=== PATIENT | female | born 1945 | race Caucasian/White ===

== ENCOUNTER 2017-03-04 10:42 | Emergency (ER) | payer MEDICARE, SELFPAY | END 2017-03-04 11:34 | disposition home or self-care (01) | PROVIDERS: Emergency Provider Nurse Practitioner Family; Family Provider Nurse Practitioner Family; Visit Provider Nurse Practitioner Family | DX: H65.02 Acute serous otitis media, left ear (principal) | CPT/HCPCS: 99201 ==

== ENCOUNTER → 2017-05-06 09:12 | Outpatient (POV) | payer MEDICARE, SELFPAY | PROVIDERS: Family Provider Nurse Practitioner Family; Visit Provider Dermatology | DX: Z00.00 Encounter for general adult medical examination without abnormal findings (principal) ==

== ENCOUNTER → 2017-09-07 14:17 | Outpatient (CLI) | payer MEDICARE, SELFPAY | PROVIDERS: Visit Provider Nurse Practitioner Family | DX: E03.9 Hypothyroidism, unspecified (principal) ==

== ENCOUNTER 2017-10-05 06:36 | Inpatient (IN) ==
--- NOTE | 2017-10-05 06:56 | Emergency Department Note ---
ED Disposition Clinical Impression: ST elevation myocardial infarction (STEMI) of inferior wall Disposition: Still a Patient Condition on Discharge: Serious - Critical Care Critical Care Time: Yes Attestation: On , the high probability of a clinically significant, sudden or life threatening deterioration of the following system(s) required my full and direct attention, intervention and personal management. The time I documented below is in addition to time spent performing reported procedures but includes the following listed in this critical care notation. Total Critical Care Time: 15 Vital system(s) involved:: Circulatory Failure (acute NE) My critical care processes included: Assessment & monitoring of V/S, Initial and Re-exams, Data Review/Interpretation, Coordinating Care, Medication Orders and management, Documentation Medical Decision Making - Nabil Inquiry Pt receiving controlled substance: No Vital Signs: 10/05/17 06:44 10/05/17 06:50 10/05/17 07:01 Temperature 98.6 F Temperature Source Oral Pulse Rate 98 H Pulse Rate [Right Brachial] 99 H 97 H Respiratory Rate 16 16 Blood Pressure Blood Pressure [Right Arm] 165/93 179/84 Blood Pressure Mean [Right Arm] 117 115 02 Sat by Pulse Oximetry 96 93 L Oxygen Delivery Method Nasal Cannula Oxygen Flow Rate (LPM) 2 10/05/17 07:11 Temperature 98.6 F Temperature Source Pulse Rate 96 H Pulse Rate [Right Brachial] Respiratory Rate 16 Blood Pressure 178/84 Blood Pressure [Right Arm] Blood Pressure Mean [Right Arm] 02 Sat by Pulse Oximetry Oxygen Delivery Method Nasal Cannula Oxygen Flow Rate (LPM) - Lab Data Lab Results 10/05/17 06:50: WBC 9.4, RBC 5.02, Hgb 15.3, Hct 43.7, MCV 87.0, MCH 30.5, MCHC 35.1, RDW 13.4, Plt Count 339, MPV 6.8 L, Neut % (Auto) 79.5, Lymph % (Auto) 13.7, [place] % (Auto) 4.8, Eos % (Auto) 1.7, Baso % (Auto) 0.3, Neut # (Auto) 7.4 , Lymph # (Auto) 1.3, [place] # (Auto) 0.5, Eos # (Auto) 0.2, Baso # (Auto) 0.0 10/05/17 06:50: Sodium 140, Potassium 2.8 L*, Chloride 103, Carbon Dioxide 30, Anion Gap 9.8, BUN 9, Creatinine 0.82, Estimated Creat Clear 59, Estimated GFR 69, Est GFR ( Amer) 83, Glucose 136 H, Calcium 9.4 Result diagrams: 10/05/17 06:50 10/05/17 06:50 Orders (Tests/Meds): ED MEDICATIONS Discontinued Medications Generic Name Dose Route Start Last Admin Trade Name Freq PRN Reason Stop Dose Admin Heparin Sodium (Porcine) 7,200 unit 10/05/17 06:59 10/05/17 07:01 Heparin 1,000 Units/Ml 10ml Vial (Director Medical Affairs) IV 10/05/17 07:00 7,200 unit ONCE ONE Administration Nitroglycerin 0.4 mg 10/05/17 06:58 10/05/17 07:10 Nitrostat 0.4mg Sl Tablet SL 11/04/17 06:57 1 tab Q5MINP PRN Administration Chest Pain Ticagrelor 180 mg 10/05/17 06:59 10/05/17 07:01 Brilinta 90mg Tablet PO 10/05/17 07:00 180 mg ONCE ONE Administration ORDERS Category Date Time Status Chest XR -- portable [XR chest portable] Stat Exams 10/05/17 06:49 Ordered Basic Metabolic Panel Stat Lab 10/05/17 06:50 Results Troponin I Stat Lab 10/05/17 06:50 Results ECG Request by /Frederick Stat Y 10/05/17 06:49 Ordered - ECG Data Tracing #1 EKG interpreted by Dhiraj Wilkinson MD: Rhythm: sinus Rate: 90 [place]: normal Ectopy: none Conduction: Borderline first-degree AV block ST Segment Changes: Elevation in leads III and aVF, depression in leads I and aVL T Wave Changes: none Q Waves: Inferior, septal Poor R-wave progression consistent with acute inferior myocardial infarction Changes are new compared to only prior EKG here - Physician Consults Physician Consulted: Danyel Time: 07:00 Reason -: Cardiology Eval/Care Comment/Response: 100 U/kg of heparin, 180 mg of Brilinta. He is on his way in. - SARA Score for STEMI Age of patient: 65-74 years Hx of anginal chest pain: Present Hx of hypertension: Present Hx of diabetes: Absent Systolic Blood Pressure: 100 mg Hg or more Heart Rate: Less than 100 beats/min [place] Class: I-No heart failure Weight of patient: 67 kg or more Anterior NE: No Left Bundle Branch Block: Absent Delay to treatment after attack: Less than 4 hrs Stemi Risk Score: 5 Medical Decision Narrative: Code STEMI called upon receipt of EKG. General Adult HPI - General Chief complaint: Chest Pain Stated complaint: Blood Pressure high,fast heart rate Time Seen by Provider: 10/05/17 06:46 Mode of Arrival: Ambulatory Limitations: No Limitations Description of Symptoms (Recalled from ER Triage Doc. by RN): Reports fast heart rate at home since 0300, and reports chest pain with pain in bilateral shoulders. - History of Present Illness HPI narrative: Complains of fast heart rate, high blood pressure, chest pain and bilateral arm pain. States she has been getting it for the past 3 nights. Tonight it came on in the a.m. Associated with some nausea but denies shortness of breath and diaphoresis. Pain is currently 6/10. She says that last night she had about 3 hours of the same symptoms but then went back to sleep and it seemed to have resolved. The night before that she had a less severe, briefer episode that she thinks lasted less than an hour. She does not have a history of coronary artery disease, but has hyperlipidemia, hypertension, and family history of a massive NE in her sister. She is a non-smoker. She is not diabetic. She took 325 mg of aspirin and 1000 mg of Tylenol this morning before coming to the emergency room. - Related Data Home Medications Medication Instructions Recorded Confirmed levothyroxine 75 mcg capsule 75 mcg PO DAILY 09/19/17 10/05/17 Acetaminophen [Tylenol 500mg 1,000 mg PO Q6 PRN 10/05/17 10/05/17 tablet] Aspirin [Aspirin 325mg Tab] 325 mg PO DAILY 10/05/17 10/05/17 Lisinopril/Hydrochlorothiazide 1 tab PO DAILY 10/05/17 10/05/17 [Lisinopril-Hctz 10-12.5 mg Tab] Allergies Allergy/AdvReac Type Severity Reaction Status Date / Time codeine [CODEINE] Allergy Unknown Verified 09/19/17 13:32 No Known Allergies Allergy Unknown Uncoded 02/23/17 14:39 [facility] History I have reviewed the patient's past medical history: Yes Medical History: Reports:: Hypertension Denies:: Cancer, Diabetes Mellitus Type 1, Diabetes Mellitus Type 2, MRSA Other Surgeries: Yes: Hysterectomy-Total Amputation: No Fractures: No Comment: breast biopsies, gallbladder - Social History Smoking Status: Never smoker Alcohol Intake: never Substance Use Type: denies use Occupational Status: retired, other Housing: house Household Members: family - Psychiatric History Expresses thoughts of harming self/others: None Suicide Plan Description: No Plan Family Hx:: Cancer ROS Obtained: Yes All systems reviewed & no additional complaints - Constitutional Constitutional: Denies excessive sweating - Cardiovascular Cardiovascular: Reports chest pain, Reports chest pain at rest - Respiratory Respiratory: No dyspnea - Gastrointestinal Gastrointestingal: Reports: nausea. Denies: vomiting Physical Exam - General General appearance: alert, in no apparent distress - Head Head exam: atraumatic, normocephalic, normal inspection - Eye Eye exam: Present: normal appearance, PERRL, EOMI - ENT ENT exam: Present: mucous membranes moist - Neck Neck exam: Present: normal inspection, full ROM, trachea midline. Absent: meningismus, lymphadenopathy - Chest Chest inspection: Present: normal inspection, symmetric chest wall rise. Absent : tenderness - Respiratory Respiratory exam: Present: normal lung sounds bilaterally. Absent: respiratory distress - Cardiovascular Cardiovascular exam: Present: regular rate, normal rhythm. Absent: JVD - Abdominal Exam Abdominal exam: Present: soft, normal bowel sounds. Absent: distention, tenderness, guarding - Extremities Exam Extremities exam: Present: normal inspection, full ROM, normal capillary refill. Absent: calf tenderness - Neurological Exam Neurological exam: Present: alert, oriented X3 - Psychiatric Psychiatric exam: Present: normal affect, normal mood - Skin Skin exam: Present: warm, dry, intact, normal color
[2017-10-05 06:58] LABS: Basophils % 0.3 % (0.1-2.0); Eosinophils # 0.2 K/mm3 (0.0-0.4); Eosinophils % 1.7 % (0.1-12.0); Hematocrit 43.7 % (37.0-47.0); Hemoglobin 15.3 g/dL (12.2-16.2); Lymphocytes # 1.3 K/mm3 (0.7-4.5); Lymphocytes % 13.7 K/mm3 (10-50); Mean Corpuscular HGB Conc 35.1 g/dL (31.8-35.4); Mean Corpuscular Hemoglobin 30.5 pg (27.0-31.2); Mean Platelet Volume 6.8 fl (7.4-10.4); Monocytes # 0.5 K/mm3 (0.1-1.0); Monocytes % 4.8 % (1.7-9.3); Neutrophils # 7.4 K/mm3 (1.8-7.8); Neutrophils % 79.5 % (37.0-80.0); Platelet Count 339 K/mm3 (142-424); Red Blood Count 5.02 M/mm3 (4.20-5.40); Red Cell Distribution Width 13.4 % (11.5-17.5); White Blood Count 9.4 K/mm3 (4.8-10.8)
[2017-10-05 07:06] LABS: Anion Gap 9.8 mEq/L (5-15); Calcium 9.4 mg/dL (8.5-10.1)
[2017-10-05 07:09] LABS: Potassium 2.8 mmoL/L (3.5-5.1)
--- NOTE | 2017-10-05 10:31 | Consult Report ---
History of Present Illness Consult date: 10/05/17 Consult reason: chest pain Chief complaint: chest pain Additional Medical History:: 1. Family history of myocardial infarction in sister History of present illness: Complains of fast heart rate, high blood pressure, chest pain and bilateral arm pain. States she has been getting it for the past 3 nights. Tonight it came on in the a.m. Associated with some nausea but denies shortness of breath and diaphoresis. Pain is currently 6/10. She says that last night she had about 3 hours of the same symptoms but then went back to sleep and it seemed to have resolved. The night before that she had a less severe, briefer episode that she thinks lasted less than an hour. She does not have a history of coronary artery disease, but has hyperlipidemia, hypertension, and family history of a massive NC in her sister. She is a non-smoker. She is not diabetic. She took 325 mg of aspirin and 1000 mg of Tylenol this morning before coming to the emergency room. The above per Dr. Wilkinson, ER physician I saw the patient post cardiac catheterization and stenting, and she is pain- free at this time. The above information was verified. [facility] History Medical History: Reports:: Hypertension Denies:: Cancer, Diabetes Mellitus Type 1, Diabetes Mellitus Type 2, MRSA Other Surgeries: Yes: Hysterectomy-Total Amputation: No Fractures: No - *Social History Smoking Status: Never smoker Alcohol Intake: never Substance Use Type: denies use Occupational Status: retired, other Housing: house Household Members: family - Psychiatric History Expresses thoughts of harming self/others: None Suicide Plan Description: No Plan *Family Hx:: Cancer Meds Home Medications Medication Instructions Recorded Confirmed Type levothyroxine 75 mcg capsule 75 mcg PO DAILY 09/19/17 10/05/17 History Acetaminophen [Tylenol 500mg 1,000 mg PO Q6 PRN 10/05/17 10/05/17 History tablet] Aspirin [Aspirin 325mg Tab] 325 mg PO DAILY 10/05/17 10/05/17 History Lisinopril/Hydrochlorothiazide 1 tab PO DAILY 10/05/17 10/05/17 History [Lisinopril-Hctz 10-12.5 mg Tab] Allergies Allergy/AdvReac Type Severity Reaction Status Date / Time codeine [CODEINE] Allergy Unknown Unknown Verified 10/05/17 10:11 allergy reaction Review of Systems - *Cardiovascular Reports chest pain, Reports shortness of breath with activity - *Respiratory Reports shortness of breath with activity - *Gastrointestinal Denies abdominal pain Exam Vital signs and Labs for Last 24 Hours: Temp Pulse Resp BP Pulse Ox 98.3 F 81 22 150/79 96 10/05/17 10:13 10/05/17 10:13 10/05/17 10:13 10/05/17 10:13 10/05/17 10:13 Laboratory Results - last 24 hr 10/05/17 06:50: WBC 9.4, RBC 5.02, Hgb 15.3, Hct 43.7, MCV 87.0, MCH 30.5, MCHC 35.1, RDW 13.4, Plt Count 339, MPV 6.8 L, Neut % (Auto) 79.5, Lymph % (Auto) 13.7, [place] % (Auto) 4.8, Eos % (Auto) 1.7, Baso % (Auto) 0.3, Neut # (Auto) 7.4 , Lymph # (Auto) 1.3, [place] # (Auto) 0.5, Eos # (Auto) 0.2, Baso # (Auto) 0.0 10/05/17 06:50: Sodium 140, Potassium 2.8 L*, Chloride 103, Carbon Dioxide 30, Anion Gap 9.8, BUN 9, Creatinine 0.82, Estimated Creat Clear 59, Estimated GFR 69, Est GFR ( Amer) 83, Glucose 136 H, Calcium 9.4, Troponin I 3.14 H I & O for Last 24 hours: Intake & Output 10/02/17 10/03/17 10/04/17 10/05/17 11:59 11:59 11:59 11:59 Weight 170 lb 9 oz - *Routine Neck Exam Absent: JVD, carotid bruit - *Routine Respiratory Exam Present: CTA bilaterally - *Routine Cardiovascular Exam Present: RRR. Absent: murmur, gallop - *Routine Extremities Exam Absent: edema - *Routine Neurological Exam Present: alert, oriented X3, moving all extremities Assessment and Plan (1) ST elevation myocardial infarction (STEMI) of inferior wall Current visit: Yes Status: Acute Category: Medical Code(s): I21.19 - ST elevation (STEMI) myocardial infarction involving other coronary artery of inferior wall (2) Hypertension Current visit: Yes Status: Acute Category: Medical Code(s): I10 - Essential (primary) hypertension (3) Hypokalemia Current visit: Yes Status: Acute Category: Medical Code(s): E87.6 - Hypokalemia - Assessment and plan all Dx Assessment and Plan for all problems:: 1. Will continue aspirin 81 mg daily and Brilinta 90 mg twice daily status post ST elevation NC with right coronary artery stenting for suction of thrombus. 2. Will continue CHANTAL inhibitor and add low-dose beta-ruy therapy due to ST elevation NC. 3. Will obtain echocardiogram to evaluate left ventricular function. 4. Continue potassium replacement will also check magnesium level and replace if less than 2.
--- NOTE | 2017-10-05 11:47 | History & Physical Report ---
*Admission Date: 10/05/17 *Chief complaint: chest pain *History of present illness: 72 year old white female with a history of HTN and hypothyroidism presented to ED early this morning with chest pain that radiated to her shoulders and arms. Patient reports similar symptoms over the last three days. No associated nausea or shortness of breath. She does report shortness of breath with exertion that has increased over the last few weeks. Patient states her b/p was elevated 152/99 at home which prompted her to come to the ED for evaluation. In the ED, EKG showed inferior ST elevation. Trop was elevated at 3.14. She was found to be hypokalemic at 2.8 and replacement was ordered. Cardiology was consulted and she was taken directly to the labor relations supervisor were a thrombectomy was performed to total occlusion of RCA and stent was placed. She has moderate circ disease with 70% stenosis and severe LAD disease with 70-80% stenosis. She was found to have inferior wall hypokinesis with EF 55%. See cath report for complete details. Patient was admitted to step down unit for monitoring and further evaluation. Patient was evaluated post catheterization. She was found to be painfree and without complaints. [facility] History I have reviewed the patient's past medical history: Yes Medical History: Reports:: Hyperlipidemia, Hypertension Denies:: Cancer, Diabetes Mellitus Type 1, Diabetes Mellitus Type 2, MRSA Laterality Cases: Bilateral: Breast Biopsy Other Surgeries: Yes: Cholecystectomy, Hysterectomy-Total Amputation: No Fractures: No - *Social History Educational Level: Attended High School Smoking Status: Never smoker Alcohol Intake: never Substance Use Type: denies use Occupational Status: retired, other Housing: house Household Members: family - Psychiatric History Expresses thoughts of harming self/others: None Suicide Plan Description: No Plan *Family Hx:: Cancer Review of Systems - Review of Systems Review of systems:: pertinent systems reviewed and negative unless documented below Meds Home Medications Medication Instructions Recorded Confirmed Type levothyroxine 75 mcg capsule 75 mcg PO DAILY 09/19/17 10/05/17 History Acetaminophen [Tylenol 500mg 1,000 mg PO Q6 PRN 10/05/17 10/05/17 History tablet] Ascorbic Acid [Vitamin C 500mg 500 mg PO DAILY 10/05/17 10/05/17 History tablet] Aspirin [Aspirin 325mg Tab] 325 mg PO DAILY 10/05/17 10/05/17 History Cyanocobalamin (Vitamin B-12) 1,000 mcg PO DAILY 10/05/17 10/05/17 History [Vitamin B-12] Flaxseed/Omega3,6,9/Fatty Acid 1 each PO DAILY 10/05/17 10/05/17 History [Flax Seed Oil 1,300 mg Softgel] Garlic 1 each PO DAILY 10/05/17 10/05/17 History Lisinopril/Hydrochlorothiazide 1 tab PO DAILY 10/05/17 10/05/17 History [Lisinopril-Hctz 10-12.5 mg Tab] Wheat Dextrin [Benefiber] 144 gm PO DAILY 10/05/17 10/05/17 History Allergies Allergy/AdvReac Type Severity Reaction Status Date / Time codeine [CODEINE] Allergy Unknown Unknown Verified 10/05/17 10:11 allergy reaction Exam Vital signs and Labs for Last 24 Hours: Temp Pulse Resp BP Pulse Ox 98.3 F 81 22 150/79 98 10/05/17 10:13 10/05/17 10:13 10/05/17 10:13 10/05/17 10:13 10/05/17 11:19 Laboratory Results - last 24 hr 10/05/17 06:50: WBC 9.4, RBC 5.02, Hgb 15.3, Hct 43.7, MCV 87.0, MCH 30.5, MCHC 35.1, RDW 13.4, Plt Count 339, MPV 6.8 L, Neut % (Auto) 79.5, Lymph % (Auto) 13.7, [place] % (Auto) 4.8, Eos % (Auto) 1.7, Baso % (Auto) 0.3, Neut # (Auto) 7.4 , Lymph # (Auto) 1.3, [place] # (Auto) 0.5, Eos # (Auto) 0.2, Baso # (Auto) 0.0 10/05/17 06:50: Sodium 140, Potassium 2.8 L*, Chloride 103, Carbon Dioxide 30, Anion Gap 9.8, BUN 9, Creatinine 0.82, Estimated Creat Clear 59, Estimated GFR 69, Est GFR ( Amer) 83, Glucose 136 H, Calcium 9.4, Troponin I 3.14 H 10/05/17 06:50: Magnesium 2.0 I & O for Last 24 hours: Intake & Output 10/02/17 10/03/17 10/04/17 10/05/17 11:59 11:59 11:59 11:59 Weight 170 lb 9 oz Narrative: ALert and oriented x3. Rate and rhythm regular. No murmur. No JVD. No carotid bruit. No LE edema. Lung sounds clear. Abdomen soft and nontender. Skin pink, warm and dry. Compression device in place over right radial artery, distal color, sensation and cap refill intact. No acute neuro deficits. H&P: Result - Labs Labs: Short CBC 10/05/17 Range/Units 06:50 WBC 9.4 (4.8-10.8) K/mm3 Hgb 15.3 (12.2-16.2) g/dL Hct 43.7 (37.0-47.0) % Plt Count 339 (142-424) K/mm3 BMP 10/05/17 06:50 Sodium 140 Potassium 2.8 L* Chloride 103 Carbon Dioxide 30 BUN 9 Creatinine 0.82 Glucose 136 H Calcium 9.4 Cardiac Enzymes 10/05/17 Range/Units 06:50 Troponin I 3.14 H (0.00-0.06) ng/ml Assessment and Plan (1) ST elevation myocardial infarction (STEMI) of inferior wall Current visit: No Status: Acute Category: Medical Code(s): I21.19 - ST elevation (STEMI) myocardial infarction involving other coronary artery of inferior wall (2) Hypertension Current visit: No Status: Acute Category: Medical Code(s): I10 - Essential (primary) hypertension (3) Hypokalemia Current visit: No Status: Acute Category: Medical Code(s): E87.6 - Hypokalemia (4) Hypothyroid Current visit: Yes Status: Chronic Category: Medical Code(s): E03.9 - Hypothyroidism, unspecified - Assessment and plan all Dx Assessment and Plan for all problems:: DAPT with aspirin and brilinta. Plan for medical management of LAD and Circ lesions with outpatient GXT in 6 weeks per cath report. Will monitor in step- down unit with telemetry. Will evaluate TSH today and fasting lipid in the am. She does report intolerance to statin in the past. Recheck potassium in the am.
--- NOTE | 2017-10-05 13:25 | Pharmacy Consult Notes ---
[facility] Pharmacy VTE Monitoring - Patient Demographics Admission date: 10/05/17 Report Date: 10/05/17 Time: 13:25 Allergies/Adverse Reactions: Patient Allergies codeine [CODEINE] Allergy (Unknown, Verified 10/05/17 10:11) Unknown allergy reaction Height: 1.65 m Weight: 77.366 kg Patient Problems: Current Active Problems (Last Updated 06/01/17 @ 10:48 by Sheryl Mckay RN) Hypothyroid (Chronic) - VTE Risk Labs: VTE Related Lab Results Hgb 15.3 g/dL (12.2-16.2) 10/05/17 06:50 Hct 43.7 % (37.0-47.0) 10/05/17 06:50 Plt Count 339 K/mm3 (142-424) 10/05/17 06:50 BUN 9 mg/dL (7-18) 10/05/17 06:50 Creatinine 0.82 mg/dL (0.55-1.02) 10/05/17 06:50 Estimated Creat Clear 59 mL/min (0-300) 10/05/17 06:50 Was VTE Risk Assessment Performed: No VTE Score: 3 VTE Risk Level: Low Risk Clinical Trial Participant: No - Prophylaxis VTE Prophylaxis Ordered?: Yes Types of VTE Prophylaxis: TEDS Knee High
--- NOTE | 2017-10-06 06:22 | Cardiology Report ---
PROCEDURE: 2-D M-mode and color Doppler study INDICATIONS FOR THE TEST: Chest pain X COPD Heart Murmur Tobacco Smoking Palpitations Fatigue Syncope Edema HypertensionXDiabetes Mellitus Rheumatic Fever SOBXDOE ObesityXHyperlipidemia Family History HDX Additional History STENT TODAY,NSTEMI PATIENT INFORMATION HEIGHT: 66 WEIGHT:170 GENDER: Female B/P:150/79 2-D/M-MODE INTERPRETATION: 2-D MEASUREMENTS OBSERVED VALUES IN CMS Right Ventricular Dimension (RVDd) 2.1 Interventricular Septum (Thickness)(IVsd) 1.4 Left Ventricular Internal Dimensions(LVIDd) 5.8 Left Ventricular Posterior Wall (Thickness)(LVPWd) .9 Aortic Root 3.7 Aortic Cusp Separation 1.9 Left Atrial Dimensions (LAD) 2.7 2D 1. Left atrium is mildly enlarged, left ventricle is normal size, mild concentric left ventricular hypertrophy, visually estimated ejection fraction of 40-45%, there is moderate hypokinesis involving the basal septum, inferior and posterobasal wall. 2. The right atrium and right ventricle are mildly enlarged with normal contractility. 3. The aortic valve is minimally thickened and fibrosed. 4. The mitral and tricuspid valve leaflets are minimally thickened. 5. The pulmonic valve is poorly visualized. 6. No significant pericardial effusion noted. DOPPLER INTERROGATION: Doppler interrogation of the aortic, mitral and tricuspid valvular presence of mild mitral and tricuspid regurgitation, tricuspid regurgitant jet velocity is insufficient for calculation of the right ventricular systolic pressure, grade 1 diastolic dysfunction seen with tissue Doppler evidence of raised left atrial pressure. CONCLUSION: 1. Mildly enlarged left atrium, normal left ventricular size, mild concentric left ventricular hypertrophy, visually estimated ejection fraction of 40-45% with multiple segmental wall motion abnormality, endocardial surfaces are poorly visualized. 2. Mildly enlarged right ventricle with normal contractility. 3. Mild mitral and tricuspid regurgitation 4. No significant pericardial effusion noted.
[2017-10-06 07:17] LABS: Anion Gap 8.6 mEq/L (5-15); Potassium 3.6 mmoL/L (3.5-5.1)
--- NOTE | 2017-10-06 08:28 | Progress Note ---
Internal Medicine - PN: Subj *Date: 10/06/17 *Time: 08:27 Interval history: Patient had a restful night, has no pain. Is somewhat disgruntled about not being discharged home today. Exam Vital signs and Labs for Last 24 Hours: Temp Pulse Resp BP Pulse Ox 98.8 F 68 18 118/67 93 L 10/06/17 04:00 10/06/17 06:00 10/06/17 06:00 10/06/17 06:00 10/06/17 06:00 Laboratory Results - last 24 hr 10/05/17 06:50: Magnesium 2.0 10/05/17 06:50: TSH 3.10 10/05/17 07:31: Activated Clotting Time 294 H* 10/05/17 08:00: Activated Clotting Time 275 H* 10/06/17 06:53: Sodium 141, Potassium 3.6 D, Chloride 108 H, Carbon Dioxide 28 , Anion Gap 8.6, BUN 9, Creatinine 0.89, Estimated Creat Clear 63, Estimated GFR 63, Est GFR ( Amer) 76, Glucose 107 H, Calcium 9.0 I & O for Last 24 hours: Intake & Output 10/03/17 10/04/17 10/05/17 10/06/17 11:59 11:59 11:59 11:59 Intake Total 690 / 690 Output Total 500 / 500 Balance 190 / 190 Weight 170 lb 9 oz 170 lb 6 oz Narrative: Awake, alert. Oriented 3. Cranial nerves intact. Heart rate regular without murmurs. Anterior lung melchor are clear. Abdomen soft, no peripheral edema. Assessment and Plan (1) ST elevation myocardial infarction (STEMI) of inferior wall Current visit: No Status: Acute Category: Medical Code(s): I21.19 - ST elevation (STEMI) myocardial infarction involving other coronary artery of inferior wall (2) Hypertension Current visit: No Status: Acute Category: Medical Code(s): I10 - Essential (primary) hypertension (3) Hypokalemia Current visit: No Status: Acute Category: Medical Code(s): E87.6 - Hypokalemia - Assessment and plan all Dx Assessment and Plan for all problems:: Overall patient did well with catheter-based intervention yesterday. Plan will be to observe today. Start statin, Brilinta will continue. Hopeful discharge tomorrow.
--- NOTE | 2017-10-06 09:10 | Progress Note ---
Subjective Date: 10/06/17 Time: 09:06 Principal diagnosis: STEMI Interval history: 72 yo WF at bedside in NAD. No chest pains. Disgruntled at the idea of spending another night here. She has a brother with cancer that she is anxious to get back to helping. No arrhythmias noted on telemetry. Exam Vital signs and Labs for Last 24 Hours: Temp Pulse Resp BP Pulse Ox 98.8 F 68 18 118/67 93 L 10/06/17 04:00 10/06/17 06:00 10/06/17 06:00 10/06/17 06:00 10/06/17 06:00 Laboratory Results - last 24 hr 10/05/17 06:50: Magnesium 2.0 10/05/17 06:50: TSH 3.10 10/05/17 07:31: Activated Clotting Time 294 H* 10/05/17 08:00: Activated Clotting Time 275 H* 10/06/17 06:53: Sodium 141, Potassium 3.6 D, Chloride 108 H, Carbon Dioxide 28 , Anion Gap 8.6, BUN 9, Creatinine 0.89, Estimated Creat Clear 63, Estimated GFR 63, Est GFR ( Amer) 76, Glucose 107 H, Calcium 9.0 I & O for Last 24 hours: Intake & Output 10/03/17 10/04/17 10/05/17 10/06/17 11:59 11:59 11:59 11:59 Intake Total 690 / 690 Output Total 500 / 500 Balance 190 / 190 Weight 170 lb 9 oz 170 lb 6 oz - *Routine Respiratory Exam Present: CTA bilaterally - *Routine Cardiovascular Exam Present: RRR. Absent: murmur, gallop Progress Note: A&P (1) ST elevation myocardial infarction (STEMI) of inferior wall Status: Acute Current Visit: No (2) Hypertension Status: Acute Current Visit: No (3) Hypokalemia Status: Acute Current Visit: No Assessment and Plan for All Diagnoses:: 1. Ambulate in [place]. 2. Ok for discharge home on DAPT (ASA 81 mg daily and Brilinta 90 mg BID). 3. Bisoprolol 2.5 mg daily and lisinopril HCT 10/12.5 mg daily 4. Statin therapy for HLD 5. Follow up in our clinic next week with plans for GXT myoview in 2 wks.
[2017-10-06 10:24] VITALS: BP 118/63
--- NOTE | 2017-10-06 13:26 | Discharge Summary ---
General - General Admission date:: 10/05/17 Discharge date: 10/06/17 HPI HPI: 72 year old white female with a history of HTN and hypothyroidism presented to ED early this morning with chest pain that radiated to her shoulders and arms. Patient reports similar symptoms over the last three days. No associated nausea or shortness of breath. She does report shortness of breath with exertion that has increased over the last few weeks. Patient states her b/p was elevated 152/99 at home which prompted her to come to the ED for evaluation. In the ED, EKG showed inferior ST elevation. Trop was elevated at 3.14. She was found to be hypokalemic at 2.8 and replacement was ordered. Cardiology was consulted and she was taken directly to the lab technologist were a thrombectomy was performed to total occlusion of RCA and stent was placed. She has moderate circ disease with 70% stenosis and severe LAD disease with 70-80% stenosis. She was found to have inferior wall hypokinesis with EF 55%. See cath report for complete details. Patient was admitted to step down unit for monitoring and further evaluation. Patient was evaluated post catheterization. She was found to be painfree and without complaints. Hospital Course Hospital Course: Patient was admitted to hospital, subjected to left heart catheterization, reviewed records as noted, please see cath report for details. Cath report included in the body of this note as below: IMPRESSION: 1. Acute ST elevation myocardial infarction as described above 2. Successful thrombectomy followed by drug-eluting stent deployment to the distal right coronary artery posterior lateral ventricular branch 3. Successful stenting of the proximal dominant right coronary artery 4. Preserved ejection fraction with mild left ventricular dilatation and regional wall motion abnormality 5. Persistent moderate to severe disease in the proximal circumflex artery 6. 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 Normal right subclavian artery and normal brachial artery with normal radial and ulnar arteries PLAN: 1. Brilinta and aspirin for one year 2. LDL less than 55 3. Pollo inhibitors beta blockers once patient's blood pressure will tolerate. Low doses should be started with plans to uptitrate as tolerated. Carvedilol should be used over metoprolol given her post MO status 4. Cardiac rehabilitation 5. Risk factor modification 6. At this point I plan to treat the LAD and circumflex artery medically. In 6 weeks stress testing could be performed to determine if the anterior wall has ischemia coming from the mid LAD lesion as well as evaluate the large nondominant circumflex arteries proximal stenosis Patient did well after the procedure. Initially cardiology plan to keep her another night but on their rounds they decided that she was clinically stable, had done well overnight and was safe to be discharged. Patient very focally wish to be discharged home. As a result she will be discharged home with medication as noted below and follow-up plan in 1 week with cardiology. Objective Vital signs: Temp Pulse Resp BP Pulse Ox 98.8 F 79 20 118/63 93 L 10/06/17 04:00 10/06/17 08:00 10/06/17 08:00 10/06/17 08:00 10/06/17 08:00 Narrative: See cardiology exam notes and my progress note from this morning Results Labs on day of discharge: Labs from last 24 hours 10/06/17 10/06/17 10/05/17 06:53 06:53 08:00 Activated Clotting Time 275 H* Sodium 141 Potassium 3.6 D Chloride 108 H Carbon Dioxide 28 Anion Gap 8.6 BUN 9 Creatinine 0.89 Estimated Creat Clear 63 Estimated GFR 63 Est GFR ( Amer) 76 Glucose 107 H Calcium 9.0 Triglycerides 258 H Cholesterol 212 H LDL Cholesterol 118 VLDL Cholesterol 52 H HDL Cholesterol 42 Cholesterol/HDL Ratio 5.0 H 10/05/17 07:31 Activated Clotting Time 294 H* Sodium Potassium Chloride Carbon Dioxide Anion Gap BUN Creatinine Estimated Creat Clear Estimated GFR Est GFR ( Amer) Glucose Calcium Triglycerides Cholesterol LDL Cholesterol VLDL Cholesterol HDL Cholesterol Cholesterol/HDL Ratio DS: Diagnosis - Discharge Diagnosis (1) ST elevation myocardial infarction (STEMI) of inferior wall Status: Acute (2) Hypertension Status: Acute (3) Hypokalemia Status: Acute Discharge Plan - Patient Discharge Instructions ACTIVITY: Continue current activity DIET: continue same diet Patient Instructions: Heart-Healthy Diet - Follow up Plan Follow up with: Fabián Montaño MD [Staff Physician] - 1 week Disposition: Home, Self-Jail Medications: Home Medications Medication Instructions Recorded Confirmed Type levothyroxine 75 mcg capsule 75 mcg PO DAILY 09/19/17 10/05/17 History Acetaminophen [Tylenol 500mg 1,000 mg PO Q6HP PRN 10/05/17 10/05/17 History tablet] Ascorbic Acid [Vitamin C 500mg 500 mg PO DAILY 10/05/17 10/05/17 History tablet] Cyanocobalamin (Vitamin B-12) 1,000 mcg PO DAILY 10/05/17 10/05/17 History [Vitamin B-12] Flaxseed/Omega3,6,9/Fatty Acid 1 each PO DAILY 10/05/17 10/05/17 History [Flax Seed Oil 1,300 mg Softgel] Garlic 1,000 mg PO DAILY 10/05/17 10/05/17 History Ibuprofen [Advil 200mg Tab] 200 mg PO Q6HP PRN 10/05/17 10/05/17 History Krill/Om-3/Dha/Epa/Phospho/Ast 1 each PO DAILY 10/05/17 10/05/17 History [Megared [place]-3 Krill Oil Sfgl] Lisinopril/Hydrochlorothiazide 1 tab PO DAILY 10/05/17 10/05/17 History [Lisinopril-Hctz 10-12.5 mg Tab] Wheat Dextrin [Benefiber] 4 tsp PO DAILY 10/05/17 10/05/17 History Prescriptions/Medication Reconciliation: New Bisoprolol Fumarate [Zebeta 5mg tablet] 2.5 mg PO DAILY #30 tab Pravastatin Sodium [Pravachol 40mg Tablet] 80 mg PO HS #30 tab Ticagrelor [Brilinta 90mg Tablet] 90 mg PO BID #60 tab Aspirin [Aspirin 81mg chewable tab] 81 mg PO DAILY #30 tab.chew Continue levothyroxine 75 mcg capsule 75 mcg PO DAILY Acetaminophen [Tylenol 500mg tablet] 1,000 mg PO Q6HP PRN PRN Reason: PAIN Garlic 1,000 mg PO DAILY Flaxseed/Omega3,6,9/Fatty Acid [Flax Seed Oil 1,300 mg Softgel] 1 each PO DAILY Cyanocobalamin (Vitamin B-12) [Vitamin B-12] 1,000 mcg PO DAILY Ascorbic Acid [Vitamin C 500mg tablet] 500 mg PO DAILY Krill/Om-3/Dha/Epa/Phospho/Ast [Megared [place]-3 Krill Oil Sfgl] 1 each PO DAILY Lisinopril/Hydrochlorothiazide [Lisinopril-Hctz 10-12.5 mg Tab] 1 tab PO DAILY Wheat Dextrin [Benefiber] 4 tsp PO DAILY Discontinued Ibuprofen [Advil 200mg Tab] 200 mg PO Q6HP PRN PRN Reason: ARTHRITIS
== END 2017-10-06 14:15 | disposition home or self-care (01) ==
LOC: 2ND 06:36 → ER 06:36 → OBSVTOIN 10:05
PROVIDERS: ADMIT Internal Medicine Adolescent Medicine; ATTEND Internal Medicine Adolescent Medicine

== ENCOUNTER → 2017-11-09 07:12 | Outpatient (CLI) | payer MEDICARE, SELFPAY ==
--- NOTE | 2017-11-09 07:14 | NM_ITS ---
CARDIOLITE SPECT MYOCARDIAL PERFUSION SCAN, REST AND STRESS: EXERCISE STRESS [facility] REVIEW QGS EF AND WALL MOTION EVALUATION: QPS - PERFUSION EVALUATION HISTORY: short of breath DOSE: 10.88 mCi technetium 99m mibi intravenously at rest followed by 32.5 mCi technetium 99m mibi following the intravenous ministration of 0.4 mg of Lexiscan. Resting blood pressure is 187/91. Stress blood pressure 158/72. FINDINGS: Ejection fraction is calculated to be 69%. Stress images reveal decreased activity throughout the anterior wall and a portion of the lateral wall. Rest images reveal improvement in the anterior wall and lateral wall. Gated images calculated ejection fraction of 69% with normal wall motion. IMPRESSION: Abnormal high risk Myoview with both anterior and lateral wall ischemia. Normal ejection fraction normal wall motion
--- NOTE | 2017-11-09 09:02 | HMH.ITSHM ---
LISINOPRIL CITRACAL LEVOTHYROXINE BRILINTA BISOPROLOL PRAVASTATIN ASA B12 VITAMIN C CALCIUM
== END ==
PROVIDERS: Family Provider Nurse Practitioner Family; PCP Nurse Practitioner Family; Visit Provider Internal Medicine
DX: E03.9 Hypothyroidism, unspecified (principal); I10 Essential (primary) hypertension; R06.09 Other forms of dyspnea; I21.19 ST elevation (STEMI) myocardial infarction involving other coronary artery of inferior wall; R94.31 Abnormal electrocardiogram [ECG] [EKG]; R53.83 Other fatigue; I25.10 Atherosclerotic heart disease of native coronary artery without angina pectoris
CPT/HCPCS: 78452; 93017; A9502; J2785

== ENCOUNTER → 2018-01-03 20:55 | Outpatient (CLI) | payer MEDICARE, SELFPAY | PROVIDERS: Visit Provider Nurse Practitioner Family | DX: J02.9 Acute pharyngitis, unspecified (principal) ==

== ENCOUNTER 2018-01-05 08:16 | Outpatient (CLI) | payer MEDICARE, SELFPAY ==
[2018-01-05 09:00] VITALS: BP 124/55; PULSE 58; RESP 20; TEMP 36.6; O2SAT 98
== END 2018-01-05 09:25 | disposition home or self-care (01) ==
LOC: INF 08:17
PROVIDERS: PCP Emergency Medicine; Visit Provider Nurse Practitioner Family
DX: N39.0 Urinary tract infection, site not specified (principal)
CPT/HCPCS: 96372; J1335

== ENCOUNTER 2018-01-06 08:15 | Outpatient (CLI) | payer MEDICARE, SELFPAY ==
[2018-01-06 08:27] VITALS: BP 112/58; PULSE 67; RESP 18; TEMP 36.6; O2SAT 97
== END 2018-01-06 08:44 | disposition home or self-care (01) ==
LOC: INF 08:15
PROVIDERS: Visit Provider Nurse Practitioner Family
DX: N39.0 Urinary tract infection, site not specified (principal); Z16.12 Extended spectrum beta lactamase (ESBL) resistance
CPT/HCPCS: 96372; J1335

== ENCOUNTER 2018-01-07 08:13 | Outpatient (CLI) | payer MEDICARE, SELFPAY ==
[2018-01-07 08:22] VITALS: BP 114/58; PULSE 67; RESP 18; TEMP 36.1; O2SAT 96
--- NOTE | 2018-01-07 08:31 | PC.NURSE ---
01/07/18 0822 Invanz 1 Gm IM given as ordered, 500mg IM L gluteus theresa, 500mg IM R gluteus theresa. Pt sudeep very well.
== END 2018-01-07 08:35 | disposition home or self-care (01) ==
LOC: INF 08:13
PROVIDERS: Visit Provider Nurse Practitioner Family
DX: N39.0 Urinary tract infection, site not specified (principal)
CPT/HCPCS: 96372; J1335

== ENCOUNTER → 2018-01-08 09:08 | Outpatient (CLI) | payer MEDICARE, SELFPAY ==
[2018-01-08 09:12] VITALS: BP 134/63; PULSE 58; RESP 18; TEMP 36.7; O2SAT 95
[2018-01-08 09:39] VITALS: BP 145/61; PULSE 59; RESP 16; TEMP 36.8; O2SAT 95
== END ==
PROVIDERS: PCP Nurse Practitioner Family; Visit Provider Nurse Practitioner Family
DX: N39.0 Urinary tract infection, site not specified (principal); Z16.12 Extended spectrum beta lactamase (ESBL) resistance
CPT/HCPCS: 96372; J1335

== ENCOUNTER → 2018-01-09 08:00 | Outpatient (CLI) | payer MEDICARE, SELFPAY ==
[2018-01-09 08:15] VITALS: BP 126/68; PULSE 73; RESP 16; TEMP 36.8; O2SAT 96
[2018-01-09 08:35] VITALS: BP 122/52; PULSE 62; RESP 16; TEMP 37; O2SAT 96
== END ==
PROVIDERS: PCP Nurse Practitioner Family; Visit Provider Nurse Practitioner Family
DX: N39.0 Urinary tract infection, site not specified (principal)
CPT/HCPCS: 96372; J1335

== ENCOUNTER 2018-01-10 10:52 | Outpatient (CLI) | payer MEDICARE, SELFPAY ==
[2018-01-10 11:15] VITALS: BP 112/52; PULSE 58; RESP 20; TEMP 36.9; O2SAT 100
--- NOTE | 2018-01-10 12:04 | PC.NURSE ---
injection given in both hips
== END 2018-01-10 11:35 | disposition home or self-care (01) ==
LOC: INF 10:52
PROVIDERS: Visit Provider Nurse Practitioner Family
DX: N39.0 Urinary tract infection, site not specified (principal); Z16.12 Extended spectrum beta lactamase (ESBL) resistance
CPT/HCPCS: 96401; J1335

== ENCOUNTER 2018-01-11 08:25 | Outpatient (CLI) | payer MEDICARE, SELFPAY ==
[2018-01-11 08:30] VITALS: BP 102/55; PULSE 59; RESP 18; TEMP 36.6; O2SAT 94
== END 2018-01-11 08:41 | disposition home or self-care (01) ==
LOC: INF 08:25
PROVIDERS: Visit Provider Nurse Practitioner Family
DX: N39.0 Urinary tract infection, site not specified (principal); Z16.12 Extended spectrum beta lactamase (ESBL) resistance
CPT/HCPCS: 96372; J1335

== ENCOUNTER 2018-01-12 08:30 | Outpatient (CLI) | payer MEDICARE, SELFPAY ==
[2018-01-12 09:00] VITALS: BP 104/55; PULSE 53; RESP 18; TEMP 36.6; O2SAT 93
== END 2018-01-12 09:10 | disposition home or self-care (01) ==
LOC: INF 08:42
PROVIDERS: Visit Provider Nurse Practitioner Family
DX: N39.0 Urinary tract infection, site not specified (principal)
CPT/HCPCS: 96372; J1335

== ENCOUNTER 2018-01-13 08:07 | Outpatient (CLI) | payer MEDICARE, SELFPAY ==
[2018-01-13 08:30] VITALS: BP 126/60; PULSE 58; RESP 18; TEMP 36.7; O2SAT 96
== END 2018-01-13 08:45 | disposition home or self-care (01) ==
LOC: INF 08:14
PROVIDERS: Visit Provider Nurse Practitioner Family
DX: N39.0 Urinary tract infection, site not specified (principal)
CPT/HCPCS: 96372; J1335

== ENCOUNTER 2018-01-14 08:42 | Outpatient (CLI) | payer MEDICARE, SELFPAY ==
[2018-01-14 09:00] VITALS: BP 120/54; PULSE 62; RESP 18; TEMP 36.8; O2SAT 95
== END 2018-01-14 09:10 | disposition home or self-care (01) ==
LOC: INF 08:42
PROVIDERS: Visit Provider Nurse Practitioner Family
DX: N39.0 Urinary tract infection, site not specified (principal)
CPT/HCPCS: 96372; J1335

== ENCOUNTER → 2018-01-18 07:55 | Outpatient (CLI) | payer MEDICARE, SELFPAY ==
[2018-01-18 14:22] LABS: Alanine Aminotransferase 30 U/L (12-78); Albumin Level 3.9 gm/dL (3.4-5.0); Alkaline Phosphatase 101 U/L (46-116); Aspartate Amino Transferase 15 U/L (15-37); Bilirubin,Direct 0.2 mg/dL (0.0-0.2); Bilirubin,Indirect 0.4 mg/dL (0.0-0.9); Bilirubin,Total 0.6 mg/dL (0.2-1.0); Chol/HDL Ratio 2.1 (1-3.5); Cholesterol 172 mg/dL (140-200); HDL Cholesterol 81 mg/dL (29-89); LDL Cholesterol 69 mg/dL (0-130); Total Protein,Serum 6.7 gm/dL (6.4-8.2); Triglycerides 111 mg/dL (30-200); VLDL Cholesterol 22 mg/dL (0-40)
== END ==
PROVIDERS: Urology; PCP Nurse Practitioner Family; Visit Provider Internal Medicine
DX: I10 Essential (primary) hypertension (principal); I21.19 ST elevation (STEMI) myocardial infarction involving other coronary artery of inferior wall; I25.10 Atherosclerotic heart disease of native coronary artery without angina pectoris; R06.09 Other forms of dyspnea; R53.83 Other fatigue; R94.31 Abnormal electrocardiogram [ECG] [EKG]
CPT/HCPCS: 36415; 80061; 80076

== ENCOUNTER 2018-04-07 13:09 | Observation (INO) ==
[2018-04-07 13:49] LABS: Basophils % 0.2 % (0.1-2.0); Eosinophils % 0.2 % (0.1-12.0); Hematocrit 44.7 % (37.0-47.0); Hemoglobin 15.1 g/dL (12.2-16.2); Lymphocytes # 0.7 K/mm3 (0.7-4.5); Lymphocytes % 3.7 % (10-50); Mean Corpuscular HGB Conc 33.7 g/dL (31.8-35.4); Mean Corpuscular Hemoglobin 31.2 pg (27.0-31.2); Mean Corpuscular Volume 92.6 fl (81-99); Mean Platelet Volume 7.2 fl (7.4-10.4); Monocytes % 5.1 % (1.7-9.3); Neutrophils % 90.7 % (37.0-80.0); Platelet Count 260 K/mm3 (142-424); Red Blood Count 4.83 M/mm3 (4.20-5.40); Red Cell Distribution Width 13.3 % (11.5-17.5); White Blood Count 18.7 K/mm3 (4.8-10.8)
[2018-04-07 14:02] LABS: Albumin Level 4.2 gm/dL (3.4-5.0); Albumin/Globulin Ratio 1.3 (1.1-1.8); Anion Gap 15.4 mEq/L (5-15); Bilirubin,Total 1.2 mg/dL (0.2-1.0); Calcium 9.4 mg/dL (8.5-10.1); Globulin 3.2 gm/dl (1.3-3.2); Potassium 3.4 mmoL/L (3.5-5.1); Total Protein,Serum 7.4 gm/dL (6.4-8.2)
[2018-04-07 14:31] LABS: Eosinophils % 1 % (0-3); Lymphocytes % 2 % (10-50); Monocytes % 5 % (2-9); Neutrophils % 90 % (42-76); Total Cells Counted 100
[2018-04-07 14:32] LABS: RBC Morphology Normal
--- NOTE | 2018-04-07 17:43 | Emergency Department Note ---
ED Disposition Clinical Impression: Viral gastroenteritis, Dehydration Disposition: Admitted as Observation Condition on Discharge: Good Instructions: DI for Nausea -- Adult, DI for Nausea -- Child, DI for Diarrhea and Traveler's Diarrhea -- Adult, DI for Diarrhea and Traveler's Diarrhea -- Child Referrals: Indira Alvarenga APRN [Primary Care Provider] - Time of Disposition: 17:50 - Critical Care Critical Care Time: No Attestation: On 04/07/18, the high probability of a clinically significant, sudden or life threatening deterioration of the following system(s) required my full and direct attention, intervention and personal management. The time I documented below is in addition to time spent performing reported procedures but includes the fol lowing listed in this critical care notation. Medical Decision Making - Medical Records Medical records reviewed: Yes: I reviewed the patient's medical records. - Nabil Inquiry Pt receiving controlled substance: No Nabil was queried for this patient: No Vital Signs: 04/07/18 13:16 04/07/18 15:28 04/07/18 17:11 Temperature 98.5 F Temperature Source Oral Pulse Rate [Right Radial] 95 H 87 82 Respiratory Rate 20 20 Blood Pressure [Right Arm] 139/76 130/69 144/68 H Blood Pressure Mean [Right Arm] 97 89 93 Blood Pressure Source [Right Arm] Automatic Cuff Automatic Cuff Blood Pressure Position [Right Arm] Sitting Sitting 02 Sat by Pulse Oximetry 93 L 92 L 95 Oxygen Delivery Method Room Air Room Air - Lab Data Lab results reviewed: Yes: I reviewed the patient's lab results. Lab Results 04/07/18 13:30: WBC 18.7 H, RBC 4.83, Hgb 15.1, Hct 44.7, MCV 92.6, MCH 31.2, MCHC 33.7, RDW 13.3, Plt Count 260, MPV 7.2 L, Neut % (Auto) 90.7 H, Lymph % (Auto) 3.7 L, [place] % (Auto) 5.1, Eos % (Auto) 0.2, Baso % (Auto) 0.2, Neut # (Auto) 17.0 H, Lymph # (Auto) 0.7, [place] # (Auto) 1.0, Eos # (Auto) 0.0, Baso # (Auto) 0.0, Total Counted 100, Neutrophils % (Manual) 90 H, Band Neutrophils % 2.0, Lymphocytes % (Manual) 2 L, Monocytes % (Manual) 5, Eosinophils % (Manual) 1, Platelet Estimate Normal, RBC Morphology Normal 04/07/18 13:30: Sodium 139, Potassium 3.4 L, Chloride 101, Carbon Dioxide 26, Anion Gap 15.4 H, BUN 13, Creatinine 0.96, Estimated Creat Clear 61, Estimated GFR 57 L, Est GFR ( Amer) 69, Glucose 124 H, Calcium 9.4, Total Bilirubin 1.2 H, AST 33, ALT 41, Alkaline Phosphatase 97, Total Protein 7.4, Albumin 4.2, Globulin 3.2, Albumin/Globulin Ratio 1.3 04/07/18 13:30: Influenza Type A Ag Negative, Influenza Type B Ag Negative 04/07/18 13:30: Group A Strep Rapid Negative 04/07/18 16:23: Lactate 2.6 H Result diagrams: 04/07/18 13:30 04/07/18 13:30 Orders (Tests/Meds): ED MEDICATIONS Discontinued Medications Generic Name Dose Route Start Last Admin Trade Name Freq PRN Reason Stop Dose Admin Acetaminophen 650 mg 04/07/18 15:22 04/07/18 15:29 Acetaminophen 325mg Tab PO 04/07/18 15:23 650 mg ONCE ONE Administration Lactated Ringer's 1,000 mls @ 999 mls/hr 04/07/18 13:45 04/07/18 13:50 Lactated Ringer's 1000 Ml Bag IV 04/07/18 14:45 999 mls/hr .Q1H1M HAYDEE Administration Lactated Ringer's 1,000 mls @ 999 mls/hr 04/07/18 15:30 04/07/18 15:29 Lactated Ringer's 1000 Ml Bag IV 04/07/18 16:30 999 mls/hr .Q1H1M HAYDEE Administration Ondansetron HCl 4 mg 04/07/18 13:42 04/07/18 13:50 Zofran 4mg/2ml Vial IV 04/07/18 13:43 4 mg ONCE ONE Administration ORDERS Category Date Time Status Strep Screen Confirmation Stat Micro 04/07/18 13:30 Received Medical Decision Narrative: Differential diagnosis includes viral gastroenteritis, dehydration, food poisoning, colitis Patient appears dehydrated is given several liters of Ringer's lactate with elevated white count of 18,000 no obvious bacterial etiology but lactic acid is elevated patient will be given 1 dose of Levaquin At 5:00 patient feels better no additional nausea vomiting or diarrhea however because of the elevated white count and advanced age previous cardiac history patient will be admitted for observation and hydration for the next 24 hours juliette patiño discussed with Dr. Conroy covering for Dr. Morton General Adult HPI - General Chief complaint: Nausea/Vomiting/Diarrhea Stated complaint: V/D Sore throat weakness Time Seen by Provider: 04/07/18 13:20 Mode of Arrival: Family Vehicle Source of Information: Patient Limitations: No Limitations Description of Symptoms (Recalled from ER Triage Doc. by RN): pt states she is having n/v/d, headache,chills,bodyaches, fever that started this am. last dose tylenol was last night. - History of Present Illness HPI narrative: Patient is a 72 old female complaining of malaise some fever chills middle of night starting around 2:00 with subsequent nausea vomiting and diarrhea since then unable to keep anything down. - Related Data Home Medications Medication Instructions Recorded Confirmed clopidogrel 75 mg tablet 75 mg PO DAILY 12/21/17 04/07/18 Aspirin [Aspirin 81mg chewable 81 mg PO DAILY 12/30/17 04/07/18 tab] Simvastatin 80 mg PO QHS 12/30/17 04/07/18 Lisinopril/Hydrochlorothiazide 1 tab PO DAILY 03/14/18 04/07/18 [Lisinopril-Hctz 20-12.5 mg Tab] Allergies Allergy/AdvReac Type Severity Reaction Status Date / Time codeine [CODEINE] Allergy Unknown Unknown Verified 04/07/18 13:24 allergy reaction [facility] History - Hepatitis A Screen Drug use history?: No High risk sexual behaviors?: No History of sexually transmitted infection?: No Currently employed?: No Childcare worker?: No Do you have indoor plumbing?: Yes Do you have electricity?: Yes Attestation statement:: This patient has been screened for Hepatitis A risk factors. Medical History: Reports:: Coronary Artery Disease, Hyperlipidemia, Hypertension, Myocardial Infarction Denies:: Cancer, Diabetes Mellitus Type 1, Diabetes Mellitus Type 2, MRSA Laterality Cases: Bilateral: Breast Biopsy Other Surgeries: Yes: Cardiac Catheterization, Cholecystectomy, Coronary Stent, Hysterectomy-Total, Other (stent-10/05/2017) Amputation: No Fractures: No Comment: breast biopsies, gallbladder - Social History Smoking Status: Never smoker Alcohol Intake: never Alcohol Intake Frequency:: other Substance Use Type: denies use Occupational Status: retired, other Housing: house Household Members: family - Psychiatric History Expresses thoughts of harming self/others: None Suicide Plan Description: No Plan Family Hx:: Cancer ROS Obtained: Yes All systems reviewed & no additional complaints - Constitutional Constitutional: Reports as per HPI, Reports body ache, Reports chills, Reports malaise, Reports weakness - Gastrointestinal Gastrointestingal: Reports: abdominal pain, diarrhea, nausea Physical Exam - General General appearance: alert, in distress - Head Head exam: atraumatic, normocephalic, normal inspection - Eye Eye exam: Present: normal appearance, PERRL, EOMI - ENT ENT exam: Present: normal exam, normal oropharynx, mucous membranes moist, TM's normal bilaterally, normal external ear exam - Neck Neck exam: Present: normal inspection, full ROM, trachea midline. Absent: meningismus, lymphadenopathy - Chest Chest inspection: Present: normal inspection, symmetric chest wall rise. Absent: tenderness - Respiratory Respiratory exam: Present: normal lung sounds bilaterally. Absent: respiratory distress - Cardiovascular Cardiovascular exam: Present: regular rate, normal rhythm. Absent: JVD - Abdominal Exam Abdominal exam: Present: soft, tenderness (Mild generalized tenderness), normal bowel sounds. Absent: distention, guarding - Extremities Exam Extremities exam: Present: normal inspection, full ROM, normal capillary refill. Absent: calf tenderness - Back Exam Back exam: Present: normal inspection. Absent: tenderness - Neurological Exam Neurological exam: Present: alert, oriented X3 - Psychiatric Psychiatric exam: Present: normal affect, normal mood - Skin Skin exam: Present: warm, dry, intact, normal color - Lymphatic Lymphatic Findings: no adenopathy
[2018-04-07 18:37] LABS: Microscopic, Urine URINE MICROSCOPIC (MICROSCOPIC)
[2018-04-07 18:39] LABS: Appearance,Urine CLEAR (Clear); Bilirubin,Urine Negative (Negative); Blood, Urine 2+ (Negative); Color,Urine YELLOW (Yellow); Glucose,Urine (UA) Negative (Negative); Ketones,Urine Negative (Negative); Leukocyte Esterase,Urine 1+ (Negative); PH,Urine 6.5 (5.0-8.5); Protein,Urine Negative (Negative); Specific Gravity, Urine <= 1.005 (1.005-1.030); Urobilinogen,Urine 0.2 EU/dl (0.2)
[2018-04-07 19:03] LABS: Bacteria,Urine Trace /lpf; RBC,Urine Occasional #/hpf (0-3)
--- NOTE | 2018-04-08 07:59 | Pharmacy Consult Notes ---
[facility] Pharmacy VTE Monitoring - Patient Demographics Admission date: 04/07/18 Report Date: 04/08/18 Time: 07:59 Allergies/Adverse Reactions: Patient Allergies codeine [CODEINE] Allergy (Unknown, Verified 04/07/18 13:24) Unknown allergy reaction Height: 1.65 m Weight: 79.038 kg Patient Problems: Current Active Problems (Last Updated 06/01/17 @ 10:48 by Sheryl Mckay RN) Viral gastroenteritis (Acute) Dehydration (Acute) - VTE Risk Labs: VTE Related Lab Results Hgb 15.1 g/dL (12.2-16.2) 04/07/18 13:30 Hct 44.7 % (37.0-47.0) 04/07/18 13:30 Plt Count 260 K/mm3 (142-424) 04/07/18 13:30 BUN 13 mg/dL (7-18) 04/07/18 13:30 Creatinine 0.96 mg/dL (0.55-1.02) 04/07/18 13:30 Estimated Creat Clear 61 mL/min (50-200) 04/07/18 13:30 VTE Score: 2 Clinical Trial Participant: No - Prophylaxis VTE Prophylaxis Ordered?: Yes Types of VTE Prophylaxis: TEDS Knee High
[2018-04-08 09:00] LABS: Basophils % 0.2 % (0.1-2.0); Eosinophils # 0.1 K/mm3 (0.0-0.4); Eosinophils % 0.5 % (0.1-12.0); Hematocrit 38.8 % (37.0-47.0); Lymphocytes # 0.8 K/mm3 (0.7-4.5); Lymphocytes % 7.6 % (10-50); Mean Corpuscular HGB Conc 32.8 g/dL (31.8-35.4); Mean Corpuscular Volume 94.5 fl (81-99); Mean Platelet Volume 8.1 fl (7.4-10.4); Monocytes # 0.5 K/mm3 (0.1-1.0); Monocytes % 4.3 % (1.7-9.3); Neutrophils # 9.6 K/mm3 (1.8-7.8); Neutrophils % 87.4 % (37.0-80.0); Platelet Count 241 K/mm3 (142-424); Red Blood Count 4.11 M/mm3 (4.20-5.40); Red Cell Distribution Width 13.4 % (11.5-17.5)
[2018-04-08 09:11] LABS: Albumin Level 3.3 gm/dL (3.4-5.0); Albumin/Globulin Ratio 1.1 (1.1-1.8); Anion Gap 11.7 mEq/L (5-15); Bilirubin,Total 0.9 mg/dL (0.2-1.0); Globulin 3.1 gm/dl (1.3-3.2); Potassium 3.7 mmoL/L (3.5-5.1); Total Protein,Serum 6.4 gm/dL (6.4-8.2)
[2018-04-08 09:44] LABS: Lymphocytes % 6 % (10-50); Monocytes % 1 % (2-9); Neutrophils % 89 % (42-76); Total Cells Counted 100
[2018-04-08 09:46] LABS: RBC Morphology Normal
[2018-04-08 10:03] LABS: Hemoglobin 12.8 g/dL (12.2-16.2)
--- NOTE | 2018-04-08 12:52 | H&P/Discharge Summary ---
General - General Admission date:: 04/07/18 Discharge date: 04/08/18 *Admission Date: 04/07/18 *Chief complaint: diarrhea *History of present illness: 72 yr old female complaining of malaise some fever chills middle of night starting around 2:00 with subsequent nausea vomiting and diarrhea since then unable to keep anything down. She is admitted for fluid hydration. [facility] History I have reviewed the patient's past medical history: Yes Medical History: Reports:: Coronary Artery Disease, Hyperlipidemia, Hypertension, Myocardial Infarction Denies:: Cancer, Diabetes Mellitus Type 1, Diabetes Mellitus Type 2, MRSA Have you ever received a pneumonia vaccine?: No Have you received a flu vaccine this season?: No Laterality Cases: Bilateral: Breast Biopsy Other Surgeries: Yes: Cardiac Catheterization, Cholecystectomy, Coronary Stent, Hysterectomy-Total, Other (stent-10/05/2017) Amputation: No Fractures: No - *Social History Educational Level: Attended High School Smoking Status: Never smoker Alcohol Intake: never Alcohol Intake Frequency:: other Substance Use Type: denies use Occupational Status: retired, other Housing: house Household Members: family Travel in the last 8 weeks: None - Psychiatric History Expresses thoughts of harming self/others: None Suicide Plan Description: No Plan *Family Hx:: Cancer Review of Systems - Review of Systems Review of systems:: pertinent systems reviewed and negative unless documented below - Constitutional Reports chills - Eyes Denies change in vision - ENT Denies change in voice - *Cardiovascular Denies shortness of breath - *Respiratory Denies chest congestion - *Gastrointestinal Reports abdominal pain, Reports loose stools, Reports nausea, Reports vomiting - *Genitourinary Denies urinary incontinence - *Musculoskeletal Denies neck pain - Integumentary/Breasts Denies rash - *Neurologic Reports weakness, Denies dizziness, Denies localized weakness - Psychiatric Denies lack of enjoyment - Endocrine Denies flushing - Hematologic/Lymphatic Denies enlarged lymph nodes - Allergic/Immunologic Denies lip swelling Exam Vital signs and Labs for Last 24 Hours: Temp Pulse Resp BP Pulse Ox 99.2 F 79 18 144/60 H 90 L 04/08/18 08:00 04/08/18 08:00 04/08/18 08:00 04/08/18 08:00 04/08/18 08:00 Laboratory Results - last 24 hr 04/07/18 13:30: WBC 18.7 H, RBC 4.83, Hgb 15.1, Hct 44.7, MCV 92.6, MCH 31.2, MCHC 33.7, RDW 13.3, Plt Count 260, MPV 7.2 L, Neut % (Auto) 90.7 H, Lymph % (Auto) 3.7 L, Mariposa % (Auto) 5.1, Eos % (Auto) 0.2, Baso % (Auto) 0.2, Neut # (Auto) 17.0 H, Lymph # (Auto) 0.7, Mariposa # (Auto) 1.0, Eos # (Auto) 0.0, Baso # (Auto) 0.0, Total Counted 100, Neutrophils % (Manual) 90 H, Band Neutrophils % 2.0, Lymphocytes % (Manual) 2 L, Monocytes % (Manual) 5, Eosinophils % (Manual) 1, Platelet Estimate Normal, RBC Morphology Normal 04/07/18 13:30: Sodium 139, Potassium 3.4 L, Chloride 101, Carbon Dioxide 26, Anion Gap 15.4 H, BUN 13, Creatinine 0.96, Estimated Creat Clear 61, Estimated GFR 57 L, Est GFR ( Amer) 69, Glucose 124 H, Calcium 9.4, Total Bilirubin 1.2 H, AST 33, ALT 41, Alkaline Phosphatase 97, Total Protein 7.4, Albumin 4.2, Globulin 3.2, Albumin/Globulin Ratio 1.3 04/07/18 13:30: Influenza Type A Ag Negative, Influenza Type B Ag Negative 04/07/18 13:30: Group A Strep Rapid Negative 04/07/18 16:17: Urine Color Yellow, Urine Appearance Clear, Urine pH 6.5, Ur Specific Rachel <= 1.005, Urine Protein Negative, Urine Glucose (UA) Negative, Urine Ketones Negative, Urine Blood 2+, Urine Nitrate Negative, Urine Bilirubin Negative, Urine Urobilinogen 0.2, Ur Leukocyte Esterase 1+ A, Urine RBC Occasional, Urine WBC 3-5, Ur Squamous Epith Cells 3-5, Urine Bacteria Trace 04/07/18 16:23: Lactate 2.6 H 04/07/18 20:50: Lactate 1.7 04/08/18 08:50: WBC 11.0 H D, RBC 4.11 L, Hgb 12.8 D, Hct 38.8, MCV 94.5, MCH 31.0, MCHC 32.8, RDW 13.4, Plt Count 241, MPV 8.1, Neut % (Auto) 87.4 H, Lymph % (Auto) 7.6 L, Mariposa % (Auto) 4.3, Eos % (Auto) 0.5, Baso % (Auto) 0.2, Neut # (Auto) 9.6 H, Lymph # (Auto) 0.8, Mariposa # (Auto) 0.5, Eos # (Auto) 0.1, Baso # (Auto) 0.0, Total Counted 100, Neutrophils % (Manual) 89 H, Lymphocytes % (Manual) 6 L, Atypical Lymphs % 4.0, Monocytes % (Manual) 1 L, Platelet Estimate Normal, RBC Morphology Normal 04/08/18 08:50: Sodium 140, Potassium 3.7, Chloride 103, Carbon Dioxide 29, Anion Gap 11.7, BUN 10, Creatinine 0.92, Estimated Creat Clear 64, Estimated GFR 60, Est GFR ( Amer) 73, Glucose 108 H, Calcium 9.0, Total Bilirubin 0.9, AST 19 D, ALT 32, Alkaline Phosphatase 75, Total Protein 6.4, Albumin 3.3 L D, Globulin 3.1, Albumin/Globulin Ratio 1.1 I & O for Last 24 hours: Intake & Output 04/06/18 04/07/18 04/08/18 04/09/18 11:59 11:59 11:59 11:59 Intake Total 4646 / 4646 Output Total 900 / 900 Balance 3746 / 3746 Weight 174 lb 4 oz Microbiology Reports for the Last 24 Hours: Microbiology 04/07/18 16:17 Urine,Clean Catch Urine Culture - Preliminary Gram Positive Cocci 04/07/18 13:30 Throat Group A Streptococcus Screen (HI) - Final Negative for Group A Streptococcus. - Constitutional no acute distress - *Routine HEENT Exam Head: Present: normocephalic Eye: Present: PERRL ENT: Present: mucous membranes moist - *Routine Neck Exam Present: supple. Absent: lymphadenopathy - *Routine Respiratory Exam Present: CTA bilaterally - *Routine Cardiovascular Exam Present: RRR - *Routine Abdominal Exam Present: soft, normoactive bowel sounds. Absent: tenderness - *Routine Extremities Exam Absent: cyanosis, clubbing, edema - *Routine Skin Exam Present: warm. Absent: rash - *Routine Neurological Exam Present: alert, oriented X3 - Routine Psychiatric Exam Present: normal affect Hospital Course Hospital Course: Today patient eating a clear liquid diet states her abdominal pain is better and her diarrhea has improved. Patient is requesting to be discharged home. White count has improved. Will send home with stuff to collect a stool specimen. Results Labs on day of discharge: Labs from last 24 hours 04/08/18 04/08/18 04/07/18 08:50 08:50 20:50 WBC 11.0 H D RBC 4.11 L Hgb 12.8 D Hct 38.8 MCV 94.5 MCH 31.0 MCHC 32.8 RDW 13.4 Plt Count 241 MPV 8.1 Neut % (Auto) 87.4 H Lymph % (Auto) 7.6 L Mariposa % (Auto) 4.3 Eos % (Auto) 0.5 Baso % (Auto) 0.2 Neut # (Auto) 9.6 H Lymph # (Auto) 0.8 Mariposa # (Auto) 0.5 Eos # (Auto) 0.1 Baso # (Auto) 0.0 Total Counted 100 Neutrophils % (Manual) 89 H Band Neutrophils % Lymphocytes % (Manual) 6 L Atypical Lymphs % 4.0 Monocytes % (Manual) 1 L Eosinophils % (Manual) Platelet Estimate Normal RBC Morphology Normal Sodium 140 Potassium 3.7 Chloride 103 Carbon Dioxide 29 Anion Gap 11.7 BUN 10 Creatinine 0.92 Estimated Creat Clear 64 Estimated GFR 60 Est GFR ( Amer) 73 Glucose 108 H Lactate 1.7 Calcium 9.0 Total Bilirubin 0.9 AST 19 D ALT 32 Alkaline Phosphatase 75 Total Protein 6.4 Albumin 3.3 L D Globulin 3.1 Albumin/Globulin Ratio 1.1 Urine Color Urine Appearance Urine pH Ur Specific Rachel Urine Protein Urine Glucose (UA) Urine Ketones Urine Blood Urine Nitrate Urine Bilirubin Urine Urobilinogen Ur Leukocyte Esterase Urine RBC Urine WBC Ur Squamous Epith Cells Urine Bacteria Influenza Type A Ag Influenza Type B Ag Group A Strep Rapid 04/07/18 04/07/18 04/07/18 16:23 16:17 13:30 WBC RBC Hgb Hct MCV MCH MCHC RDW Plt Count MPV Neut % (Auto) Lymph % (Auto) Mariposa % (Auto) Eos % (Auto) Baso % (Auto) Neut # (Auto) Lymph # (Auto) Mariposa # (Auto) Eos # (Auto) Baso # (Auto) Total Counted Neutrophils % (Manual) Band Neutrophils % Lymphocytes % (Manual) Atypical Lymphs % Monocytes % (Manual) Eosinophils % (Manual) Platelet Estimate RBC Morphology Sodium Potassium Chloride Carbon Dioxide Anion Gap BUN Creatinine Estimated Creat Clear Estimated GFR Est GFR ( Amer) Glucose Lactate 2.6 H Calcium Total Bilirubin AST ALT Alkaline Phosphatase Total Protein Albumin Globulin Albumin/Globulin Ratio Urine Color Yellow Urine Appearance Clear Urine pH 6.5 Ur Specific Rachel <= 1.005 Urine Protein Negative Urine Glucose (UA) Negative Urine Ketones Negative Urine Blood 2+ Urine Nitrate Negative Urine Bilirubin Negative Urine Urobilinogen 0.2 Ur Leukocyte Esterase 1+ A Urine RBC Occasional Urine WBC 3-5 Ur Squamous Epith Cells 3-5 Urine Bacteria Trace Influenza Type A Ag Influenza Type B Ag Group A Strep Rapid Negative 04/07/18 04/07/18 04/07/18 13:30 13:30 13:30 WBC 18.7 H RBC 4.83 Hgb 15.1 Hct 44.7 MCV 92.6 MCH 31.2 MCHC 33.7 RDW 13.3 Plt Count 260 MPV 7.2 L Neut % (Auto) 90.7 H Lymph % (Auto) 3.7 L Mariposa % (Auto) 5.1 Eos % (Auto) 0.2 Baso % (Auto) 0.2 Neut # (Auto) 17.0 H Lymph # (Auto) 0.7 Mariposa # (Auto) 1.0 Eos # (Auto) 0.0 Baso # (Auto) 0.0 Total Counted 100 Neutrophils % (Manual) 90 H Band Neutrophils % 2.0 Lymphocytes % (Manual) 2 L Atypical Lymphs % Monocytes % (Manual) 5 Eosinophils % (Manual) 1 Platelet Estimate Normal RBC Morphology Normal Sodium 139 Potassium 3.4 L Chloride 101 Carbon Dioxide 26 Anion Gap 15.4 H BUN 13 Creatinine 0.96 Estimated Creat Clear 61 Estimated GFR 57 L Est GFR ( Amer) 69 Glucose 124 H Lactate Calcium 9.4 Total Bilirubin 1.2 H AST 33 ALT 41 Alkaline Phosphatase 97 Total Protein 7.4 Albumin 4.2 Globulin 3.2 Albumin/Globulin Ratio 1.3 Urine Color Urine Appearance Urine pH Ur Specific Rachel Urine Protein Urine Glucose (UA) Urine Ketones Urine Blood Urine Nitrate Urine Bilirubin Urine Urobilinogen Ur Leukocyte Esterase Urine RBC Urine WBC Ur Squamous Epith Cells Urine Bacteria Influenza Type A Ag Negative Influenza Type B Ag Negative Group A Strep Rapid Preliminary micro results at discharge 04/07/18 16:17 Urine Culture - Preliminary Urine,Clean Catch Gram Positive Cocci - Additional Comments Discussed with Dr. Saba all orders per [facility] Discharge Medications - Medications for Discharge Home Medication List at Discharge: No Action clopidogrel 75 mg tablet 75 mg PO DAILY Aspirin [Aspirin 81mg chewable tab] 81 mg PO DAILY Lisinopril/Hydrochlorothiazide [Lisinopril-Hctz 20-12.5 mg Tab] 1 tab PO DAILY Simvastatin 80 mg PO HS Levothyroxine Sodium [Tirosint] 75 mcg PO DAILY Disposition Disposition: Home, Self-Care
== END 2018-04-08 13:50 | disposition home or self-care (01) ==
LOC: ER 13:09 → 2ND 13:09
PROVIDERS: ADMIT Family Medicine; ATTEND Emergency Medicine
CPT/HCPCS: 36415; 80053; 81001; 83605; 85007; 85025; 87040; 87086; 87088; 87186; 87275; 87276; 87430; 96365; 96366; 96367; 96375; 99284; G0378; J1956; J2405

== ENCOUNTER → 2018-04-12 11:30 | Outpatient (CLI) | payer MEDICARE, SELFPAY ==
[2018-04-13 07:48] LABS: Adenovirus F 40/41, stool Not Detected (NotDetected); Astrovirus Not Detected (NotDetected); Campylobacter Not Detected (NotDetected); Clostridium Difficile A/B, PCR Not Detected (NotDetected); Cryptosporidium Not Detected (NotDetected); Cyclospora Cayetanesis Not Detected (NotDetected); Entamoeba histolytica Not Detected (NotDetected); Enteroaggregative E coli Not Detected (NotDetected); Enteropathogenic E coli Not Detected (NotDetected); Enterotoxigenic E coli Not Detected (NotDetected); Giardia lamblia Not Detected (NotDetected); Norovirus Not Detected (NotDetected); Plesimonas Shigalloides, PCR Not Detected (NotDetected); Rotavirus A Not Detected (NotDetected); Salmonella, PCR Not Detected (NotDetected); Sapovirus Not Detected (NotDetected); Shiga-like toxin E coli Not Detected (NotDetected); Shigella Enterovasive E coli Not Detected (NotDetected); Vibrio Cholerae Not Detected (NotDetected); Vibrio, PCR Not Detected (NotDetected); Yersinia Entercolitica, PCR Not Detected (NotDetected)
== END ==
PROVIDERS: PCP Nurse Practitioner Family; Visit Provider Nurse Practitioner Family
DX: R19.7 Diarrhea, unspecified (principal)
CPT/HCPCS: 87507

== ENCOUNTER → 2018-11-10 14:13 | Outpatient (CLI) | payer MEDICARE, SELFPAY ==
[2018-11-10 17:17] LABS: Amphetamine/Metha Screen,Urine Negative ng/mL (<1000); Barbiturates Screen,Urine Negative ng/mL (<200); Benzodiazepines Screen,Urine Negative ng/mL (<200); Cannabinoid Screen,Urine Negative ng/mL (<50); Cocaine Screen,Urine Negative ng/mL (<300); Methadone Screen,Urine Negative ng/mL (<300); Opiate Screen,Urine Negative ng/mL (<300); Phencyclidine Screen,Urine Negative ng/mL (<25)
== END ==
PROVIDERS: Visit Provider Nurse Practitioner Family
DX: Z79.891 Long term (current) use of opiate analgesic (principal)
CPT/HCPCS: 80305

== ENCOUNTER → 2019-08-08 08:38 | Outpatient (CLI) | payer MEDICARE, SELFPAY ==
[2019-08-08 09:26] LABS: Basophils % 0.7 % (0.1-2.0); Eosinophils # 0.2 K/mm3 (0.0-0.4); Eosinophils % 3.2 % (0.1-12.0); Hematocrit 44.9 % (37.0-47.0); Hemoglobin 15.1 g/dL (12.2-16.2); Lymphocytes # 1.4 K/mm3 (0.7-4.5); Lymphocytes % 23.3 % (10-50); Mean Corpuscular HGB Conc 33.6 g/dL (31.8-35.4); Mean Corpuscular Hemoglobin 31.2 pg (27.0-31.2); Mean Corpuscular Volume 92.7 fl (81-99); Mean Platelet Volume 7.6 fl (7.4-10.4); Monocytes # 0.3 K/mm3 (0.1-1.0); Monocytes % 5.5 % (1.7-9.3); Neutrophils % 67.3 % (37.0-80.0); Platelet Count 325 K/mm3 (142-424); Red Blood Count 4.84 M/mm3 (4.20-5.40); Red Cell Distribution Width 14.1 % (11.5-17.5)
[2019-08-08 10:43] LABS: Free T4 (Free Thyroxine) 0.91 ng/dl (0.78-2.19)
[2019-08-08 11:47] LABS: Chloride 102 mmol/L (98-107); Potassium 3.9 mmoL/L (3.5-5.1); Sodium 140 mmol/L (136-145)
[2019-08-08 11:50] LABS: Alanine Aminotransferase 27 U/L (12-78); Albumin Level 4.6 g/dl (3.5-5.0); Albumin/Globulin Ratio 1.9 (1.1-1.8); Alkaline Phosphatase 113 U/L (38-126); Anion Gap 8.9 mEq/L (5-15); Aspartate Amino Transferase 31 U/L (14-36); Bilirubin,Total 0.9 mg/dl (0.2-1.3); Blood Urea Nitrogen 10 mg/dl (7-17); Carbon Dioxide 33 mmol/L (22.0-30.0); Cholesterol 141 mg/dl (140-200); Estimated Glomerular Filt Rate 70 ml/min (>60); GFR (African American) 85 ML/MIN (>60); Globulin 2.4 g/dL (1.3-3.2); Glucose 113 mg/dl (74-100); Triglycerides 258 mg/dl (30-150); VLDL Cholesterol 52 mg/dL (0-40)
[2019-08-08 11:51] LABS: Calcium 9.4 mg/dl (8.4-10.2); Chol/HDL Ratio 2.1 (1-3.5); HDL Cholesterol 66 mg/dl (40-60)
[2019-08-08 12:02] LABS: Direct LDL Cholesterol 60.93 mg/dL (100-129)
[2019-08-08 12:21] LABS: Thyroid Stimulating Hormone 7.22 uIU/mL (0.465-4.68)
[2019-08-09 14:17] LABS: Vitamin D 25 Hydroxy 39.5 ng/mL (30.0-100.0)
== END ==
PROVIDERS: Visit Provider Emergency Medicine
DX: I10 Essential (primary) hypertension (principal); Z79.899 Other long term (current) drug therapy
CPT/HCPCS: 36415; 80053; 80061; 82652; 84439; 84443; 85025

== ENCOUNTER → 2020-02-19 13:57 | Outpatient (CLI) | payer MEDICARE, SELFPAY ==
--- NOTE | 2020-02-19 13:58 | CA_ITS ---
APPROVED REPORT EXAM: Comprehensive 2D, Doppler, and color-flow Echocardiogram Sleeve Maker: Mildred Sawyer RDCS Ht: 5 ft 5 in Wt: 178lbs BSA: 1.88 BP: 156/68 mmHg Indications: SOA,CAD,HTN,HLP 2D Dimensions LVOT 2.12 cm (M/F) 1.5-2.5 M-Mode Dimensions RVDd 2.89 cm (0.9-2.6) LA Diam 3.87 cm (1.9-4.0) LVDd 5.45 cm (3.5-5.7) Ao Diam 2.66 cm (2.0-3.7) LVDs 3.11 cm (3.5-5.7) IVSd 1.05 cm (0.6-1.1) PWd 1.11 cm (0.6-1.1) EF (Teich) 73.50% FS 42.90% EDV (Teich) 144.40 mL ESV (Teich) 38.20 mL LV Diastology E Decel Time 200.00 (160-240 msec) E/A Ratio 0.8 MED E' 4.50 (< 7 cm/sec) E'/MED E' Ratio 16.40 (>14) LAT E' 6.00 (<10 cm/sec) E/LAT E' Ratio 12.30 (>14) Mitral Valve MV E Max Luiz. 74.00 (40-130 cm/s) MV A Velocity 89.00 (40-130 cm/s) E/A Ratio 0.83 MV Decel. Time 200.00 (160-240 ms) MV PHT 59.00 ms Left Ventricle Left atrium is mildly enlarged, left ventricle is normal size, mild concentric left ventricular hypertrophy, visually estimated ejection fraction 55% with no regional wall motion abnormality, endocardial surfaces are poorly visualized, grade 1 diastolic dysfunction seen with tissue Doppler evidence of raise left atrial pressure. Right Ventricle Right atrium and right ventricle are normal size and contractility. Aortic Valve Aortic valve is minimally thickened and fibrosed, there is no aortic stenosis or aortic insufficiency. Mitral Valve Mitral valve leaflets are minimally thickened, there is mild mitral regurgitation. Tricuspid Valve Tricuspid valve is grossly normal, there is mild tricuspid regurgitation, tricuspid regurgitation jet velocity is inadequate for calculation of the right ventricular systolic pressure. Pulmonic Valve Pulmonic valve is poorly visualized. Great Vessels Aortic root is normal size. Pericardium No significant pericardial effusion noted. Conclusion 1. Mildly enlarged left atrium, normal left ventricular size, mild concentric left ventricular hypertrophy, visually estimated ejection fraction 55% with no regional wall motion abnormality, diastolic parameters consist of grade 1 diastolic dysfunction with elevated left atrial pressure. 2. Mild mitral and tricuspid regurgitation. 3. No significant pericardial effusion noted. Electronically signed by : Fabian Ashford, 02/20/2020 05:38:37
== END ==
PROVIDERS: PCP Emergency Medicine; Visit Provider Urology
DX: I25.10 Atherosclerotic heart disease of native coronary artery without angina pectoris (principal)
CPT/HCPCS: 93306

== ENCOUNTER → 2020-06-10 10:42 | Outpatient (CLI) | payer MEDICARE, SELFPAY ==
[2020-06-10 11:09] LABS: Basophils % 0.4 % (0.1-2.0); Eosinophils # 0.1 K/mm3 (0.0-0.4); Eosinophils % 0.6 % (0.1-12.0); Hematocrit 47.2 % (37.0-47.0); Hemoglobin 15.5 g/dL (12.2-16.2); Lymphocytes # 1.9 K/mm3 (0.7-4.5); Lymphocytes % 18.3 % (10-50); Mean Corpuscular HGB Conc 32.9 g/dL (31.8-35.4); Mean Corpuscular Hemoglobin 29.7 pg (27.0-31.2); Mean Corpuscular Volume 90.2 fl (81-99); Mean Platelet Volume 7.1 fl (7.4-10.4); Monocytes # 0.6 K/mm3 (0.1-1.0); Monocytes % 5.3 % (1.7-9.3); Neutrophils # 7.9 K/mm3 (1.8-7.8); Neutrophils % 75.4 % (37.0-80.0); Platelet Count 384 K/mm3 (142-424); Red Blood Count 5.23 M/mm3 (4.20-5.40); Red Cell Distribution Width 13.6 % (11.5-17.5); White Blood Count 10.5 K/mm3 (4.8-10.8)
[2020-06-10 12:00] LABS: Alanine Aminotransferase 28 U/L (12-78); Albumin Level 5.3 g/dl (3.5-5.0); Alkaline Phosphatase 121 U/L (38-126); Anion Gap 13.6 mEq/L (5-15); Aspartate Amino Transferase 29 U/L (14-36); Blood Urea Nitrogen 18 mg/dl (7-17); Calcium 10.3 mg/dl (8.4-10.2); Carbon Dioxide 29 mmol/L (22.0-30.0); Chloride 104 mmol/L (98-107); Chol/HDL Ratio 2.3 (1-3.5); Cholesterol 190 mg/dl (140-200); Estimated Glomerular Filt Rate 70 ml/min (>60); GFR (African American) 85 ML/MIN (>60); Globulin 2.7 g/dL (1.3-3.2); Glucose 100 mg/dl (74-100); HDL Cholesterol 81 mg/dl (40-60); Potassium 3.6 mmoL/L (3.5-5.1); Sodium 143 mmol/L (136-145); Triglycerides 203 mg/dl (30-150); VLDL Cholesterol 41 mg/dL (0-40)
[2020-06-10 12:11] LABS: Direct LDL Cholesterol 73.11 mg/dL (100-129)
[2020-06-10 12:16] LABS: 25-OH Vitamin D, Total 18.7 ng/mL (30-100)
[2020-06-10 12:17] LABS: Free T4 (Free Thyroxine) 1.45 ng/dl (0.78-2.19)
[2020-06-10 12:31] LABS: Thyroid Stimulating Hormone 0.05 uIU/mL (0.465-4.68)
== END ==
PROVIDERS: Visit Provider Emergency Medicine
DX: R53.83 Other fatigue (principal); K59.00 Constipation, unspecified; E03.9 Hypothyroidism, unspecified; E55.9 Vitamin D deficiency, unspecified
CPT/HCPCS: 36415; 80053; 80061; 82306; 84439; 84443; 85025

== ENCOUNTER 2020-08-01 18:27 | Emergency (ER) | payer MEDICARE, SELFPAY ==
[2020-08-01 18:28] VITALS: BP 172/70; PULSE 77; RESP 16; TEMP 37.2; O2SAT 98; BMI 31.1
--- NOTE | 2020-08-01 18:35 | ECG_ITS ---
APPROVED REPORT Exam: Resting ECG HR:70 bpm ECG Measurements Heart Rate 70 AXES OK 202 P 63 QRSd 88 QRS -25 QT 400 T 16 QTc 432 Conclusion Normal sinus rhythm Possible Left atrial enlargement late r wave progression Abnormal ECG Electronically signed by : Edis Morton, 08/03/2020 07:28:49
--- NOTE | 2020-08-01 18:46 | XR_ITS ---
PROCEDURE INFORMATION: Exam: XR Chest Exam date and time: 08/01/2020 6:46 PM Age: 75 years old Clinical indication: Shortness of breath; Prior surgery; Surgery date: 6+ months; Surgery type: Stents; Patient HX: SOB ---. Non-smoker TECHNIQUE: Imaging protocol: XR of the chest. Portable AP upright exam 6:58 p.m. Views: 1 view. COMPARISON: No relevant prior studies available. FINDINGS: Lungs: Mild right infrahilar interstitial prominence. No pulmonary consolidation. Lung volumes within normal limits. Pleural spaces: Unremarkable. No significant pleural effusion. No pneumothorax. Heart/Mediastinum: The cardiac silhouette is normal. Bones/joints: Spinal degenerative changes. IMPRESSION: 1. Mild right infrahilar interstitial prominence which may be chronic rather than acute in nature. 2. No focal consolidation.
--- NOTE | 2020-08-01 18:55 | HMH.EDGENADL ---
ED Disposition Clinical Impression: Cough, Dyspnea on exertion Dyspnea Qualifiers: Dyspnea type: unspecified Qualified Code(s): R06.00 - Dyspnea, unspecified Disposition: Home, Self-Care Condition on Discharge: Good Instructions: DI for Shortness of Breath Additional Instructions: See Dr. Saba in his office on 08/06/2020 at 10 AM. Return to the emergency department if symptoms worsen. Additional instructions for SHORTNESS OF BREATH: Return immediately if worsening shortness of breath or if vomiting, chest pain, fever, coughing of blood, or passing out. Referrals: Valdez Saba MD [Primary Care Provider] - - Critical Care Critical Care Time: No Attestation: On 08/01/20, the high probability of a clinically significant, sudden or life threatening deterioration of the following system(s) required my full and direct attention, intervention and personal management. The time I documented below is in addition to time spent performing reported procedures but includes the following listed in this critical care notation. Medical Decision Making - Medical Records Medical records reviewed: Yes: I reviewed the patient's medical records. MR Comment: Reviewed cardiac cath report from [facility] September 2017. Reviewed most recent cardiology visit 02/13/2020. She complained of dyspnea and dyspnea on exertion. She had an echocardiogram ordered. Result reviewed. - Nabil Inquiry Pt receiving controlled substance: No Vital Signs: 08/01/20 18:28 08/01/20 19:00 08/01/20 19:31 Temperature 99 F Temperature Source Oral Pulse Rate 68 69 Pulse Rate [Radial] 77 Respiratory Rate 16 20 22 Blood Pressure 167/79 H 142/60 H Blood Pressure [Right Arm] 172/70 H Blood Pressure Mean [Right Arm] 104 Blood Pressure Position [Right Arm] Sitting 02 Sat by Pulse Oximetry 98 97 93 L Oxygen Delivery Method Room Air 08/01/20 20:00 Temperature Temperature Source Pulse Rate 68 Pulse Rate [Radial] Respiratory Rate 19 Blood Pressure 119/58 L Blood Pressure [Right Arm] Blood Pressure Mean [Right Arm] Blood Pressure Position [Right Arm] 02 Sat by Pulse Oximetry 93 L Oxygen Delivery Method - Lab Data Lab Results 08/01/20 18:43: WBC 7.9, RBC 5.01, Hgb 15.2, Hct 43.4, MCV 86.5, MCH 30.3, MCHC 35.0, RDW 13.9, Plt Count 325, MPV 7.1 L, Neut % (Auto) 67.6, Lymph % (Auto) 21.6, Benzie % (Auto) 7.3, Eos % (Auto) 2.8, Baso % (Auto) 0.7, Neut # (Auto) 5.3, Lymph # (Auto) 1.7, Benzie # (Auto) 0.6, Eos # (Auto) 0.2, Baso # (Auto) 0.1 08/01/20 18:43: Sodium 140, Potassium 3.2 L, Chloride 101, Carbon Dioxide 30, Anion Gap 12.2, BUN 14, Creatinine 0.80, Estimated Creat Clear 60, Estimated GFR 70, Est GFR ( Amer) 85, Glucose 112 H, Calcium 9.2, Troponin I < 0.01 08/01/20 18:43: NT-Pro-B Natriuret Pep 184 H Result diagrams: 08/01/20 18:43 08/01/20 18:43 Orders (Tests/Meds): ORDERS Category Date Time Status Troponin I Q3H Lab 08/01/20 22:00 Ordered Troponin I Q3H Lab 08/02/20 01:00 Ordered prior ECHO: Conclusion 1. Mildly enlarged left atrium, normal left ventricular size, mild concentric left ventricular hypertrophy, visually estimated ejection fraction 55% with no regional wall motion abnormality, diastolic parameters consist of grade 1 diastolic dysfunction with elevated left atrial pressure. 2. Mild mitral and tricuspid regurgitation. 3. No significant pericardial effusion noted. Electronically signed by : Fabian Ashford, 02/20/2020 05:38:37 Prior cardiac cath: CARDIAC CATHETERIZATION DATE OF CATHETERIZATION:10/05/2017 7:57 AM PROCEDURES: 1. Left heart catheterization 2. Left ventriculogram 3. Selective coronary angiogram 4. Thrombectomy to the right coronary artery followed by drug-eluting stent to the posterior lateral ventricular branch 5. Catheter placement in the brachial artery 6. Brachial artery retrograde angiogram 7. Right femoral arterial ac
[2020-08-01 18:56] LABS: Basophils # 0.1 K/mm3 (0-0.2); Basophils % 0.7 % (0.1-2.0); Eosinophils # 0.2 K/mm3 (0.0-0.4); Eosinophils % 2.8 % (0.1-12.0); Hematocrit 43.4 % (37.0-47.0); Hemoglobin 15.2 g/dL (12.2-16.2); Lymphocytes # 1.7 K/mm3 (0.7-4.5); Lymphocytes % 21.6 % (10-50); Mean Corpuscular Hemoglobin 30.3 pg (27.0-31.2); Mean Corpuscular Volume 86.5 fl (81-99); Mean Platelet Volume 7.1 fl (7.4-10.4); Monocytes # 0.6 K/mm3 (0.1-1.0); Monocytes % 7.3 % (1.7-9.3); Neutrophils # 5.3 K/mm3 (1.8-7.8); Neutrophils % 67.6 % (37.0-80.0); Platelet Count 325 K/mm3 (142-424); Red Blood Count 5.01 M/mm3 (4.20-5.40); Red Cell Distribution Width 13.9 % (11.5-17.5); White Blood Count 7.9 K/mm3 (4.8-10.8)
[2020-08-01 18:57] LABS: Chloride 101 mmol/L (98-107); Potassium 3.2 mmoL/L (3.5-5.1); Sodium 140 mmol/L (136-145)
[2020-08-01 19:00] VITALS: BP 167/79; PULSE 68; RESP 20; O2SAT 97
[2020-08-01 19:00] LABS: Anion Gap 12.2 mEq/L (5-15); Blood Urea Nitrogen 14 mg/dl (7-17); Carbon Dioxide 30 mmol/L (22.0-30.0); Creatinine Clearance Estimated 60 mL/min (50-200); Estimated Glomerular Filt Rate 70 ml/min (>60); GFR (African American) 85 ML/MIN (>60)
[2020-08-01 19:01] LABS: Calcium 9.2 mg/dl (8.4-10.2); Glucose 112 mg/dl (74-100)
[2020-08-01 19:10] LABS: NT Pro Brain Natriuretic Pep. 184 pg/mL (0-125)
[2020-08-01 19:13] LABS: Troponin I < 0.01 ng/ml (0.00-0.034)
[2020-08-01 19:31] VITALS: BP 142/60; PULSE 69; RESP 22; O2SAT 93
[2020-08-01 20:00] VITALS: BP 119/58; PULSE 68; RESP 19; O2SAT 93
[2020-08-01 20:25] VITALS: BP 119/58; PULSE 76; RESP 18; TEMP 36.8; O2SAT 98
== END 2020-08-01 20:40 | disposition home or self-care (01) ==
PROVIDERS: Emergency Provider Emergency Medicine; PCP Emergency Medicine
DX: R06.09 Other forms of dyspnea (principal); R05 Cough; I25.2 Old myocardial infarction; I25.10 Atherosclerotic heart disease of native coronary artery without angina pectoris; Z95.5 Presence of coronary angioplasty implant and graft; E78.5 Hyperlipidemia, unspecified; K21.9 Gastro-esophageal reflux disease without esophagitis; I10 Essential (primary) hypertension; Z79.899 Other long term (current) drug therapy
CPT/HCPCS: 71045; 80048; 83880; 84484; 85025; 93005; 99282

== ENCOUNTER → 2020-08-07 14:35 | Outpatient (CLI) | payer MEDICARE, SELFPAY | PROVIDERS: PCP Emergency Medicine; Visit Provider Physician Assistant | DX: Z01.818 Encounter for other preprocedural examination (principal); Z20.822 Contact with and (suspected) exposure to COVID-19; I20.8 Other forms of angina pectoris | CPT/HCPCS: 93225; U0003 ==

== ENCOUNTER 2020-08-16 08:36 | Day surgery (SDC) | payer MEDICARE, SELFPAY ==
[2020-08-16] VITALS (10 sets, daily range): BP systolic 151–208; BP diastolic 78–109; PULSE 67–82; RESP 18–20; O2SAT 89–94; BMI 32.5
--- NOTE | 2020-08-16 07:02 | IR_ITS ---
APPROVED REPORT Patient Location: Outpatient PROCEDURES Left heart catheterization Left ventriculogram Selective coronary angiogram Catheter placement in the right brachial artery Right brachial artery retrograde angiogram Right radial artery retrograde angiogram Right femoral arterial access Stent deployment to the proximal mid circumflex artery Intravascular ultrasound of the right coronary INDICATION Coronary disease, Progressive angina pectoris, Radial artery and brachial artery stenosis Informed consent was obtained prior to the procedure. COMPLICATIONS None, No further attempt should be made to perform left heart catheter sedation via the right radial artery Estimated Blood Loss: Less than 10 mls TECHNIQUE One percent lidocaine used to anesthetize the right anterior aspect of the wrist. The right radial artery was accessed via the Seldinger technique. A 6 Qatari sheath was placed in the right radial artery. 2.5 mg of verapamil, 800 mcg of nitroglycerin, 1mg Lidocaine and 5000 U Heparin were given through the arterial sheath. The trap catheter was also used to perform selective coronary angiogram. An additional 4 Qatari JL4 catheter was was used to perform left coronary angiography. The short sheath was exchanged for a long sheath however despite this the main brachial artery could not be cannulated despite numerous catheter manipulations and wire manipulations. Eventually it was decided rather than upsizing to a 6 Qatari into the small accessory brachial artery was decided to proceed with right groin access for interventional procedure. 1% lidocaine used anesthetize right groin the right femoral artery was accessed via the Salinger technique. 3000 units of heparin was administered intravenously giving an ACT out of range. The JL 3 guide catheter was used to cannulate the left main artery and a Choice PT wire was placed distally in the circumflex artery. A 3 mm x 22 mm resolute Monson stent was deployed at 20 benji reducing the stenosis. An additional 3 mm x 12 mm resolute Lalo stent was placed distal to this yet still overlapping it and deployed at 20 benji to further post dilate and given an additional reduction of the stenotic area. After achieving excellent angiographic results the apparatus was removed and a JR4 guide catheter was used to intubate the right coronary artery. A BMW wire was placed distally and an intravascular catheter was advanced to better evaluate the mechanism of in-stent restenosis within the proximal stent. The MLA proximal to the stent was 6.3 mm???. The stent itself was widely patent. After achieving SARA-3 flow before and after the procedure in the circumflex artery the apparatus was removed the groin was reprepped closure changed sheath was removed hemostasis was achieved using Perclose device patient was transferred to the postop putting in stable condition. Prior to the right groin access the radial sheath was removed and good hemostasis was achieved using TR banding No further attempts should be made to perform left heart catheterization via the right radial artery ANGIOGRAPHIC RESULTS The left main artery Normal The left anterior descending artery Has proximal 10% stenosis with a long mid vessel tubular concentric 30% stenosis. Distally the right coronary artery has a 70% stenosis as the LAD approaches the apex and a 2 mm segment. The circumflex artery Is a codominant vessel and has a proximal long 80 to 90% concentric stenosis. First obtuse marginal artery has 20 and 30% stenoses while the second obtuse marginal artery has an ostial 30 to 40% stenosis The right coronary artery Is codominant and has an angiographically indeterminate proximal rick
[2020-08-16 09:18] LABS: Chloride 101 mmol/L (98-107); Sodium 140 mmol/L (136-145)
[2020-08-16 09:19] LABS: Potassium 3.6 mmoL/L (3.5-5.1)
[2020-08-16 09:21] LABS: Anion Gap 11.6 mEq/L (5-15); Blood Urea Nitrogen 13 mg/dl (7-17); Carbon Dioxide 31 mmol/L (22.0-30.0); Creatinine Clearance Estimated 63 mL/min (50-200); Estimated Glomerular Filt Rate 70 ml/min (>60); GFR (African American) 85 ML/MIN (>60)
[2020-08-16 09:22] LABS: Basophils % 0.7 % (0.1-2.0); Calcium 9.5 mg/dl (8.4-10.2); Eosinophils # 0.2 K/mm3 (0.0-0.4); Eosinophils % 3.1 % (0.1-12.0); Glucose 114 mg/dl (74-100); Hemoglobin 15.7 g/dL (12.2-16.2); Lymphocytes # 1.5 K/mm3 (0.7-4.5); Lymphocytes % 24.1 % (10-50); Mean Corpuscular HGB Conc 34.1 g/dL (31.8-35.4); Mean Corpuscular Hemoglobin 29.9 pg (27.0-31.2); Mean Corpuscular Volume 87.4 fl (81-99); Mean Platelet Volume 7.4 fl (7.4-10.4); Monocytes # 0.4 K/mm3 (0.1-1.0); Monocytes % 6.3 % (1.7-9.3); Neutrophils % 65.8 % (37.0-80.0); Platelet Count 349 K/mm3 (142-424); Red Blood Count 5.26 M/mm3 (4.20-5.40); Red Cell Distribution Width 13.8 % (11.5-17.5)
--- NOTE | 2020-08-16 13:24 | HMH.PHACLD ---
Mildred Morales has received discharge medication counseling on the following medications: PATIENT IS ALREADY TAKING ASPIRIN 81 MG CHEWABLE DAILY, BISOPROLOL 5 MG DAILY, LOSARTAN 50 MG DAILY, AND SIMVASTATIN 80 MG HS. MD STARTING PLAVIX 75 MG DAILY. PATIENT HAS TAKING THIS MEDICATION IN THE PAST.
[2020-08-16 14:38] LABS: CATHL Activated Clotting Time > 400 SEC (74-125)
== END 2020-08-16 14:55 | disposition home or self-care (01) ==
LOC: CATHLAB 08:38
PROVIDERS: PCP Emergency Medicine; Visit Provider Internal Medicine
DX: E78.2 Mixed hyperlipidemia (principal); I10 Essential (primary) hypertension; I25.118 Atherosclerotic heart disease of native coronary artery with other forms of angina pectoris; K21.9 Gastro-esophageal reflux disease without esophagitis; R06.02 Shortness of breath; R94.31 Abnormal electrocardiogram [ECG] [EKG]; R94.39 Abnormal result of other cardiovascular function study; I70.208 Unspecified atherosclerosis of native arteries of extremities, other extremity
CPT/HCPCS: 36415; 80048; 85025; 85347; 92928; 93458; 99152; 99153; C1725; C1760; C1769; C1876; C1894; C9600; J1644; Q9967; U0003

== ENCOUNTER 2020-09-17 09:44 | Outpatient (RCR) | payer MEDICARE, SELFPAY | END 2020-09-17 10:45 | disposition home or self-care (01) | LOC: PT 09:44 | PROVIDERS: Visit Provider Internal Medicine | DX: Z95.5 Presence of coronary angioplasty implant and graft (principal) ==

== ENCOUNTER → 2020-09-30 11:23 | Outpatient (CLI) | payer MEDICARE, SELFPAY | PROVIDERS: PCP Emergency Medicine; Referring Provider Nurse Practitioner Family; Visit Provider Emergency Medicine | DX: Z20.822 Contact with and (suspected) exposure to COVID-19 (principal); U07.1 COVID-19 | CPT/HCPCS: U0003 ==

== ENCOUNTER 2020-09-30 16:37 | Inpatient (IN) | payer MEDICARE, OTHER, SELFPAY ==
[2020-09-30] VITALS (10 sets, daily range): BP systolic 120–145; BP diastolic 54–78; PULSE 54–96; RESP 18–32; TEMP 36.5–38.5; O2SAT 80–98; BMI 28.3
--- NOTE | 2020-09-30 17:09 | XR_ITS ---
PROCEDURE INFORMATION: Exam: XR Chest Exam date and time: 09/30/2020 5:09 PM Age: 75 years old Clinical indication: Patient HX: Shortness of breath, possible covid 19; Additional info: SOB TECHNIQUE: Imaging protocol: XR of the chest. Views: 1 view. COMPARISON: CR XR CHEST PORTABLE 08/01/2020 6:57 PM FINDINGS: Lungs: Mild streaky bilateral opacities are seen. Pleural spaces: No definite effusion. Heart/Mediastinum: Heart remains mildly enlarged. Bones/joints: Unremarkable. IMPRESSION: Streaky bilateral opacities could represent infection or possibly edema.
[2020-09-30 17:53] LABS: Alanine Aminotransferase 33 U/L (12-78); Albumin Level 4.5 g/dl (3.5-5.0); Albumin/Globulin Ratio 1.5 (1.1-1.8); Alkaline Phosphatase 83 U/L (38-126); Anion Gap 14.4 mEq/L (5-15); Aspartate Amino Transferase 56 U/L (14-36); Bilirubin,Total 0.8 mg/dl (0.2-1.3); Blood Urea Nitrogen 21 mg/dl (7-17); Calcium 8.5 mg/dl (8.4-10.2); Carbon Dioxide 29 mmol/L (22.0-30.0); Chloride 95 mmol/L (98-107); Creatinine Clearance Estimated 60 mL/min (50-200); Estimated Glomerular Filt Rate 70 ml/min (>60); GFR (African American) 85 ML/MIN (>60); Glucose 121 mg/dl (74-100); Lactic Acid 1.2 mmol/L (0.7-2.1); Potassium 3.4 mmoL/L (3.5-5.1); Sodium 135 mmol/L (136-145); Total Protein,Serum 7.5 g/dl (6.3-8.2)
[2020-09-30 17:55] LABS: Basophils % 0.3 % (0.1-2.0); Eosinophils % 0.1 % (0.1-12.0); Hematocrit 45.2 % (37.0-47.0); Hemoglobin 15.6 g/dL (12.2-16.2); Lymphocytes # 0.2 K/mm3 (0.7-4.5); Lymphocytes % 4.6 % (10-50); Mean Corpuscular HGB Conc 34.5 g/dL (31.8-35.4); Mean Corpuscular Hemoglobin 29.2 pg (27.0-31.2); Mean Corpuscular Volume 84.7 fl (81-99); Mean Platelet Volume 6.9 fl (7.4-10.4); Monocytes # 0.7 K/mm3 (0.1-1.0); Monocytes % 14.2 % (1.7-9.3); Neutrophils # 4.1 K/mm3 (1.8-7.8); Neutrophils % 80.7 % (37.0-80.0); Platelet Count 263 K/mm3 (142-424); Red Blood Count 5.34 M/mm3 (4.20-5.40); Red Cell Distribution Width 13.1 % (11.5-17.5); White Blood Count 5.1 K/mm3 (4.8-10.8)
--- NOTE | 2020-09-30 17:59 | HMH.EDGENADL ---
ED Disposition Clinical Impression: Acute hypoxemic respiratory failure due to COVID-19, Pneumonia due to COVID-19 virus, Gastroenteritis Disposition: Admitted As Inpatient Condition on Discharge: Fair Referrals: Valdez Saba MD [Primary Care Provider] - - Critical Care Critical Care Time: No Attestation: On 09/30/20, the high probability of a clinically significant, sudden or life threatening deterioration of the following system(s) required my full and direct attention, intervention and personal management. The time I documented below is in addition to time spent performing reported procedures but includes the following listed in this critical care notation. Medical Decision Making - Medical Records Medical records reviewed: Yes: I reviewed the patient's medical records. - Nabil Inquiry Pt receiving controlled substance: No Vital Signs: 09/30/20 16:41 09/30/20 16:43 09/30/20 17:00 Temperature 101.3 F H Temperature Source Oral Pulse Rate 91 H Pulse Rate [Radial] 89 Respiratory Rate 32 H 32 H Blood Pressure 145/78 H Blood Pressure [Right Arm] 142/73 H Blood Pressure Mean 100 Blood Pressure Mean [Right Arm] 96 Blood Pressure Position Blood Pressure Position [Right Arm] Sitting 02 Sat by Pulse Oximetry 80 L 95 96 Oxygen Delivery Method Room Air Nasal Cannula Oxygen Flow Rate (LPM) 5 09/30/20 17:30 09/30/20 18:00 Temperature Temperature Source Pulse Rate 70 70 Pulse Rate [Radial] Respiratory Rate 29 H 28 H Blood Pressure 136/68 141/67 H Blood Pressure [Right Arm] Blood Pressure Mean 98 91 Blood Pressure Mean [Right Arm] Blood Pressure Position Sitting Sitting Blood Pressure Position [Right Arm] 02 Sat by Pulse Oximetry 98 97 Oxygen Delivery Method Nasal Cannula Nasal Cannula Oxygen Flow Rate (LPM) 5 5 - Lab Data Lab Results 09/30/20 17:00: WBC 5.1, RBC 5.34, Hgb 15.6, Hct 45.2, MCV 84.7, MCH 29.2, MCHC 34.5, RDW 13.1, Plt Count 263, MPV 6.9 L, Neut % (Auto) 80.7 H, Lymph % (Auto) 4.6 L, [place] % (Auto) 14.2 H, Eos % (Auto) 0.1, Baso % (Auto) 0.3, Neut # (Auto) 4.1, Lymph # (Auto) 0.2 L, [place] # (Auto) 0.7, Eos # (Auto) 0.0, Baso # (Auto) 0.0 09/30/20 17:00: Sodium 135 L, Potassium 3.4 L, Chloride 95 L, Carbon Dioxide 29, Anion Gap 14.4, BUN 21 H, Creatinine 0.80, Estimated Creat Clear 60, Estimated GFR 70, Est GFR ( Amer) 85, Glucose 121 H, Calcium 8.5, Total Bilirubin 0.8, AST 56 H, ALT 33, Alkaline Phosphatase 83, Total Protein 7.5, Albumin 4.5, Globulin 3.0, Albumin/Globulin Ratio 1.5 09/30/20 17:00: Lactate 1.2 Result diagrams: 09/30/20 17:00 09/30/20 17:00 Orders (Tests/Meds): ED MEDICATIONS Generic Name Dose Route Start Last Admin Trade Name Freq PRN Reason Stop Dose Admin Sodium Chloride 1,000 mls @ 999 mls/hr 09/30/20 17:15 Sod Chlor 0.9% 1000ml Bag IV 09/30/20 18:15 .Q1H1M HAYDEE Sodium Chloride 1,000 mls @ 999 mls/hr 09/30/20 17:15 09/30/20 17:14 Sod Chlor 0.9% 1000ml Bag IV 09/30/20 18:15 999 mls/hr .Q1H1M HAYDEE Administration Discontinued Medications Generic Name Dose Route Start Last Admin Trade Name Freq PRN Reason Stop Dose Admin Acetaminophen 1,000 mg 09/30/20 17:11 09/30/20 17:12 Acetaminophen 500mg Tab PO 09/30/20 17:12 1,000 mg ONCE ONE Administration Dexamethasone Sodium Phosphate 10 mg 09/30/20 17:11 09/30/20 17:53 Dexamethasone 4mg/Ml 5ml Mdv IV 09/30/20 17:12 10 mg ONCE ONE Administration Ondansetron HCl 4 mg 09/30/20 17:11 09/30/20 17:13 Ondansetron 4mg/2ml Vial IV 09/30/20 17:12 4 mg ONCE ONE Administration ORDERS Category Date Time Status CTA Chest [CT angio chest PE protocol] Stat Cat Scan 09/30/20 18:06 Ordered Urinalysis and Microscopic Stat Lab 09/30/20 17:11 Ordered Blood Culture Stat Micro 09/30/20 15:35 Received - Radiology Data #1 Image(s): Chest Image Reviewed: Yes I reviewed the patient's radiology results, Yes I rev
--- NOTE | 2020-09-30 18:04 | PC.NURSE ---
Paging Jayant per request
--- NOTE | 2020-09-30 18:06 | CT_ITS ---
PROCEDURE INFORMATION: Exam: CTA Chest With Contrast Exam date and time: 09/30/2020 6:06 PM Age: 75 years old Clinical indication: Shortness of breath; Patient HX: SOA, covid positive; Additional info: Short of breath TECHNIQUE: Imaging protocol: Computed tomographic angiography of the chest with contrast. 3D rendering (Not supervised by radiologist): MIP and/or 3D reconstructed images were created by the technologist. Radiation optimization: All CT scans at this facility use at least one of these dose optimization techniques: automated exposure control; mA and/or kV adjustment per patient size (includes targeted exams where dose is matched to clinical indication); or iterative reconstruction. Contrast material: ISOVUE; Contrast volume: 70 ml; Contrast route: INTRAVENOUS (IV); COMPARISON: CR XR CHEST PORTABLE 09/30/2020 5:27 PM FINDINGS: Pulmonary arteries: Breathing artifact limits exam, but no evidence of pulmonary embolus to the lobar level. Aorta: Unremarkable. No aortic aneurysm. No aortic dissection. Great vessels off aortic arch: Incidental note of ever right subclavian artery. Lungs: Mild to moderate patchy bilateral airspace disease is seen. The findings are most compatible with infection. Atypical infection is possible. Edema considered less likely. Pleural spaces: No pneumothorax. No pleural effusion. Heart: Coronary artery calcifications are seen. Lymph nodes: Mild mediastinal and hilar adenopathy , some are calcified. Liver: Diffuse hypoattenuation of the liver likely due to steatosis. Bones/joints: Unremarkable. Soft tissues: Unremarkable. IMPRESSION: 1. Limited study due to breathing, but no evidence of pulmonary embolus. 2. Extensive patchy bilateral airspace disease most compatible with infection.
--- NOTE | 2020-09-30 18:35 | ECG_ITS ---
APPROVED REPORT Exam: Resting ECG HR:72 bpm ECG Measurements Heart Rate 72 AXES WY 184 P 6 QRSd 92 QRS -41 QT 390 T 7 QTc 427 Conclusion Normal sinus rhythm Possible Left atrial enlargement Left axis deviation Anterior infarct, age undetermined Abnormal ECG Electronically signed by : Edis Morton, 10/01/2020 17:00:46
--- NOTE | 2020-09-30 18:35 | PC.NURSE ---
Called [facility] for admission.
--- NOTE | 2020-09-30 20:08 | HMH.HP ---
*Admission Date: 09/30/20 *Chief complaint: sob *History of present illness: this patient presented to the [facility] ed- 75-year-old female presenting with some nausea vomiting diarrhea and shortness of breath for the last few days. Patient was recently tested for coronavirus and was found to be positive. Since then she has been having some mild cough and difficulty breathing. She feels very short of breath. She is also had some nausea, vomiting and diarrhea. Clear nature. Had some associated abdominal cramping. Patient is not having chest pain or palpitations. Has endorsing fevers and chills. Denies any headache or change in vision. No focal weakness. pt was admitted for eval and is requiring o2 at this time [facility] History I have reviewed the patient's past medical history: Yes Medical History: Reports:: Coronary Artery Disease, Gastroesophageal Reflux Disease(GERD), Hyperlipidemia, Hypertension, Myocardial Infarction Denies:: Cancer, Diabetes Mellitus Type 1, Diabetes Mellitus Type 2, Internal Pacemaker, MRSA, Seizures *Have you ever received a pneumonia vaccine?: No *Have you received a flu vaccine this season?: No Other Medical History: Reports: Arthritis, Other Laterality Cases: Bilateral: Breast Biopsy Other Surgeries: Yes: Cardiac Catheterization, Cholecystectomy, Coronary Stent, Hysterectomy-Total, Other. No: Pacemaker Amputation: No Fractures: No - *Social History Smoking Status: Never smoker Alcohol Intake: never Alcohol Intake Frequency:: other Substance Use Type: denies use *Occupational Status:: retired Housing: house Household Members: family *Travel in the last 8 weeks: None Family Hx:: Cancer Review of Systems - Review of Systems Review of systems:: pertinent systems reviewed and negative unless documented below - Constitutional Reports weakness, Denies fever(s) - Eyes Denies change in vision - ENT Denies sore throat - *Cardiovascular Denies chest pain, Denies shortness of breath - *Respiratory Denies cough - *Gastrointestinal Reports nausea, Reports vomiting, Denies abdominal pain - *Genitourinary Denies blood in urine - *Musculoskeletal Reports body aches, Denies joint pain - Integumentary/Breasts Denies rash - *Neurologic Denies headache(s), Denies seizure-like activity - Psychiatric Reports anxiety Meds Home Medications Medication Instructions Recorded Confirmed Type Aspirin [Aspirin 81mg chewable 81 mg PO DAILY 12/30/17 09/30/20 History tab] Cholecalciferol (Vitamin D3) 1,000 unit PO DAILY 08/16/20 09/30/20 History [Vitamin D3 1,000 Unit Cap] Ergocalciferol (Vitamin D2) 50,000 unit PO QWEEK 08/16/20 09/30/20 History [Drisdol] Levothyroxine Sodium [Synthroid 100 mcg PO DAILY 08/16/20 09/30/20 History 100mcg (0.1mg) tablet] Losartan Potassium [Cozaar 50mg 50 mg PO DAILY 08/16/20 09/30/20 History Tablets] Pantoprazole Sodium 20 mg PO DAILY 08/16/20 09/30/20 History bisoproloL fumarate [Bisoprolol 2.5 mg PO DAILY 08/16/20 09/30/20 History Fumarate] hydroCHLOROthiazide 12.5 mg PO DAILY 08/16/20 09/30/20 History [Hydrochlorothiazide 12.5mg Tab] clopidogrel 75 mg tablet 75 mg PO DAILY tab 08/27/20 09/30/20 History Amoxicillin [Amoxicillin 500mg 500 mg PO BID 09/30/20 09/30/20 History Cap] Gabapentin [Gabapentin 100mg Cap] 100 mg PO BID 09/30/20 09/30/20 History Simvastatin 80 mg PO HS 09/30/20 09/30/20 History Allergies Allergy/AdvReac Type Severity Reaction Status Date / Time codeine [CODEINE] Allergy Unknown Unknown Verified 09/24/20 15:01 allergy reaction Exam Vital signs and Labs for Last 24 Hours: Temp Pulse Resp BP Pulse Ox 99.3 F 70 27 H 133/65 96 09/30/20 18:38 09/30/20 18:30 09/30/20 18:30 09/30/20 18:30 09/30/20 18:38 Laboratory Results - last 24 hr 09/30/20 17:00: WBC 5.1, RBC 5.34, Hgb 15.6, Hct 45.2, MCV 84.7, MCH 29.2, MCHC 34.5, RDW 13.1, Plt Count 263, MPV 6.9 L, Neut %
--- NOTE | 2020-09-30 21:16 | PC.NURSE ---
PT ARRIVED TO FLOOR VIA STRETCHER FROM ED W/STAFF AT 2115
[2020-09-30 22:09] LABS: Microscopic, Urine URINE MICROSCOPIC (MICROSCOPIC)
[2020-09-30 22:16] LABS: Appearance,Urine CLEAR (Clear); Bilirubin,Urine Negative (Negative); Blood, Urine TRACE-I (Negative); Color,Urine YELLOW (Yellow); Glucose,Urine (UA) Negative (Negative); Ketones,Urine Negative (Negative); Leukocyte Esterase,Urine Negative (Negative); Nitrate,Urine Negative (Negative); PH,Urine 6.5 (5.0-8.5); Protein,Urine Negative (Negative); Specific Gravity, Urine <= 1.005 (1.005-1.030); Urobilinogen,Urine 0.2 EU/dl (0.2)
[2020-09-30 22:27] LABS: Bacteria,Urine Trace /lpf; Squamous Epithelial Cell,Urine Occasional #/hpf (0-5)
[2020-10-01] VITALS (9 sets, daily range): BP systolic 130–153; BP diastolic 52–70; PULSE 54–69; RESP 17–24; TEMP 36.4–36.7; O2SAT 90–98; BMI 28.5
--- NOTE | 2020-10-01 04:18 | PC.NURSE ---
Pt is currently resting in bed at this time. Arrived to floor on 5L O2 NC. Titrated to 3.5 L O2 NC. Pt became soa after ambulating to BS. O2 sat declined to upper 80s. Pt was titrated back to 4L O2 NC while she recovers. She has been tachypneic also this shift. BP has remained stable. She has remained afebrile since arrival to floor. Pt has had one loose stool since arrival. Had partial bath. She is currently awake and drinking a soda. No other concerns. Will continue to monitor.
[2020-10-01 07:31] LABS: Basophils % 0.2 % (0.1-2.0); Eosinophils % 0.1 % (0.1-12.0); Hematocrit 40.9 % (37.0-47.0); Lymphocytes # 0.6 K/mm3 (0.7-4.5); Lymphocytes % 14.9 % (10-50); Mean Corpuscular HGB Conc 32.5 g/dL (31.8-35.4); Mean Corpuscular Hemoglobin 28.9 pg (27.0-31.2); Mean Corpuscular Volume 89.1 fl (81-99); Mean Platelet Volume 7.1 fl (7.4-10.4); Monocytes # 0.3 K/mm3 (0.1-1.0); Monocytes % 7.9 % (1.7-9.3); Neutrophils # 3.1 K/mm3 (1.8-7.8); Platelet Count 208 K/mm3 (142-424); Red Cell Distribution Width 13.4 % (11.5-17.5)
--- NOTE | 2020-10-01 07:34 | HMH.PHAVTE ---
[facility] Pharmacy VTE Monitoring - Patient Demographics Admission date: 10/01/20 Report Date: 10/01/20 Time: 07:34 Allergies/Adverse Reactions: Patient Allergies codeine [CODEINE] Allergy (Unknown, Verified 09/24/20 15:01) Unknown allergy reaction Height: 1.65 m Weight: 77.564 kg Patient Problems: Current Active Problems (Last Updated 06/01/17 @ 10:48 by Sheryl Mckay RN) Acute hypoxemic respiratory failure due to COVID-19 (Acute) Pneumonia due to COVID-19 virus (Acute) Gastroenteritis (Acute) - VTE Risk Labs: VTE Related Lab Results Hgb 15.6 g/dL (12.2-16.2) 09/30/20 17:00 Hct 45.2 % (37.0-47.0) 09/30/20 17:00 Plt Count 263 K/mm3 (142-424) 09/30/20 17:00 BUN 21 mg/dl (7-17) H 09/30/20 17:00 Creatinine 0.80 mg/dl (0.52-1.04) 09/30/20 17:00 Estimated Creat Clear 60 mL/min (50-200) 09/30/20 17:00 Was VTE Risk Assessment Performed: Yes VTE Risk Level: Moderate Risk Clinical Trial Participant: No - Prophylaxis VTE Prophylaxis Ordered?: Yes Types of VTE Prophylaxis: TEDS Knee High, Pharmacological Pharmacologic Type: Enoxaparin
--- NOTE | 2020-10-01 07:39 | HMH.PHAINT ---
clarified home medication list using list from home pharmacy
[2020-10-01 07:53] LABS: Hemoglobin 13.3 g/dL (12.2-16.2)
[2020-10-01 08:02] LABS: Alanine Aminotransferase 26 U/L (12-78); Albumin Level 3.3 g/dl (3.5-5.0); Albumin/Globulin Ratio 1.3 (1.1-1.8); Alkaline Phosphatase 62 U/L (38-126); Anion Gap 8.5 mEq/L (5-15); Aspartate Amino Transferase 47 U/L (14-36); Bilirubin,Total 0.6 mg/dl (0.2-1.3); Blood Urea Nitrogen 16 mg/dl (7-17); Carbon Dioxide 30 mmol/L (22.0-30.0); Chloride 106 mmol/L (98-107); Creatinine Clearance Estimated 60 mL/min (50-200); Estimated Glomerular Filt Rate 82 ml/min (>60); GFR (African American) 99 ML/MIN (>60); Globulin 2.5 g/dL (1.3-3.2); Glucose 132 mg/dl (74-100); Potassium 4.5 mmoL/L (3.5-5.1); Sodium 140 mmol/L (136-145); Total Protein,Serum 5.8 g/dl (6.3-8.2)
--- NOTE | 2020-10-01 08:03 | PC.NURSE ---
While eating breakfast, pt was noted by staff to have O2 sat in mid to upper 70s. Pt was asked to stop eating and O2 was titrated up. Pt was then placed on venti mask. O2 increased to mid 80s. RT notified. Pt was placed on 100% NRB. MD consulted. New orders received. Place pt on Vapotherm.
[2020-10-01 08:17] LABS: Calcium 7.5 mg/dl (8.4-10.2)
--- NOTE | 2020-10-01 11:47 | HMH.PULMCON ---
*Admission Date: 10/01/20 *Reason for consult:: Acute hypoxic respiratory failure, COVID-19 pneumonia *History of present illness: Ms. Dobbs 75-year-old female no significant Prior respiratory complaints not any home oxygen or any inhalers presented to hospital with worsening gastrointestinal symptoms increasing nausea and vomiting found to be COVID-19 positive and was admitted and pulmonary was called for further management. Patient denies any fevers or chills. Patient denies any respiratory distress. Denies any productive cough or chest pain. [facility] History Medical History: Reports:: Coronary Artery Disease, Gastroesophageal Reflux Disease(GERD), Hyperlipidemia, Hypertension, Myocardial Infarction Denies:: Cancer, Diabetes Mellitus Type 1, Diabetes Mellitus Type 2, Internal Pacemaker, MRSA, Seizures *Have you ever received a pneumonia vaccine?: No *Have you received a flu vaccine this season?: No Other Medical History: Reports: Arthritis, Other Laterality Cases: Bilateral: Breast Biopsy Other Surgeries: Yes: Cardiac Catheterization, Cholecystectomy, Coronary Stent, Hysterectomy-Total, Other. No: Pacemaker Amputation: No Fractures: No - *Social History Smoking Status: Never smoker Alcohol Intake: never Alcohol Intake Frequency:: other Substance Use Type: denies use *Occupational Status:: retired Housing: house Household Members: family *Travel in the last 8 weeks: None Family Hx:: Diabetes, Heart Attack, Hyperlipidemia, Hypertension ROS - Cons Reports body ache(s), Reports fatigue - Card Reports shortness of breath with activity, Denies shortness of breath - Resp Respiratory: Denies cough - GI Gastrointestingal: Reports: abdominal pain, change in bowel habits, nausea - Psych Reports abnormal sleep pattern Meds Home Medications Medication Instructions Recorded Confirmed Type Aspirin [Aspirin 81mg chewable 81 mg PO DAILY 12/30/17 09/30/20 History tab] Cholecalciferol (Vitamin D3) 1,000 unit PO DAILY 08/16/20 09/30/20 History [Vitamin D3 1,000 Unit Cap] Ergocalciferol (Vitamin D2) 50,000 unit PO WEEKLY 08/16/20 10/01/20 History [Drisdol] Levothyroxine Sodium [Synthroid 100 mcg PO DAILY 08/16/20 09/30/20 History 100mcg (0.1mg) tablet] Losartan Potassium [Cozaar 50mg 50 mg PO DAILY 08/16/20 09/30/20 History Tablets] Pantoprazole Sodium 20 mg PO DAILY 08/16/20 09/30/20 History bisoproloL fumarate [Bisoprolol 2.5 mg PO DAILY 08/16/20 09/30/20 History Fumarate] hydroCHLOROthiazide 12.5 mg PO DAILY 08/16/20 09/30/20 History [Hydrochlorothiazide 12.5mg Tab] clopidogrel 75 mg tablet 75 mg PO DAILY tab 08/27/20 09/30/20 History Gabapentin [Gabapentin 100mg Cap] 100 mg PO BID 09/30/20 09/30/20 History Simvastatin 80 mg PO HS 09/30/20 09/30/20 History Allergies Allergy/AdvReac Type Severity Reaction Status Date / Time codeine [CODEINE] Allergy Unknown Unknown Verified 09/24/20 15:01 allergy reaction Exam - Constitutional Constitutional:: Present: no acute distress - HENMT Exam HENMT: Present: normocephalic, atraumatic - Eye Exam Eyes:: Present: normal appearance both eyes and related structures - Neck Exam Neck:: Present: normal visual inspection - Respiratory Exam Respiratory:: Present: able to speak in complete sentences, no respiratory distress, normal respiratory effort, crackles. Absent: wheezing - Cardiovascular Exam Cardiac:: Present: S1, S2 - GI Exam GI:: Present: soft, no tenderness - Skin Exam Skin: Present: warm, no rash, dry - Neurological Exam Neurological: Present: alert, awake, normal cognition - Extremities Exam Extremities: Present: no cyanosis, no clubbing, no edema Internal Medicine - CN: Reslt - Labs CBC & Chem 7: 10/01/20 06:55 10/01/20 06:55 Labs: Short CBC 09/30/20 10/01/20 Range/Units 17:00 06:55 WBC 5.1 4.0 L (4.8-10.8) K/mm3 Hgb 15.6 13.3 D (12.2-16.2) g/dL Hct 45.2 40.9 (37.0-47.
[2020-10-01 12:29] LABS: C-Reactive Protein 26.5 mg/L (0-4)
[2020-10-01 13:00] LABS: Ferritin 508 ng/ml (11.1-264)
[2020-10-01 13:11] LABS: Lactate Dehydrogenase 370 U/L (313-618)
--- NOTE | 2020-10-01 13:31 | PC.NURSE ---
Called and notified Marcy Raines RN of notifications on positive aerobic blood cx's and positive pcr.
--- NOTE | 2020-10-01 13:32 | HMH.ACPN2 ---
Internal Medicine - PN: Subj *Date: 10/01/20 *Time: 19:47 Interval history: 75-year-old female patient sitting up in bed gently eating breakfast, respiratory in the room. Patient was on 4 L of oxygen per nasal cannula with oxygen saturations of 80 to 84%. Respiratory reports after starting to eat breakfast her sats dropped into the 80s she took a short break from eating sats jessica to 85% and then dropped to low 80s again. Patient was placed on Ventimask, shortly thereafter escalated to Vapotherm. She denies any chest pain or shortness of breath during the night, shortness of breath only this morning after eating breakfast. Exam Vital signs and Labs for Last 24 Hours: Temp Pulse Resp BP Pulse Ox 97.7 F 65 17 153/69 H 98 10/01/20 11:39 10/01/20 11:39 10/01/20 11:39 10/01/20 11:39 10/01/20 11:39 Laboratory Results - last 24 hr 09/30/20 17:00: WBC 5.1, RBC 5.34, Hgb 15.6, Hct 45.2, MCV 84.7, MCH 29.2, MCHC 34.5, RDW 13.1, Plt Count 263, MPV 6.9 L, Neut % (Auto) 80.7 H, Lymph % (Auto) 4.6 L, [place] % (Auto) 14.2 H, Eos % (Auto) 0.1, Baso % (Auto) 0.3, Neut # (Auto) 4.1, Lymph # (Auto) 0.2 L, [place] # (Auto) 0.7, Eos # (Auto) 0.0, Baso # (Auto) 0.0 09/30/20 17:00: Sodium 135 L, Potassium 3.4 L, Chloride 95 L, Carbon Dioxide 29, Anion Gap 14.4, BUN 21 H, Creatinine 0.80, Estimated Creat Clear 60, Estimated GFR 70, Est GFR ( Amer) 85, Glucose 121 H, Calcium 8.5, Total Bilirubin 0.8, AST 56 H, ALT 33, Alkaline Phosphatase 83, Total Protein 7.5, Albumin 4.5, Globulin 3.0, Albumin/Globulin Ratio 1.5 09/30/20 17:00: Lactate 1.2 09/30/20 21:35: Urine Color Yellow, Urine Appearance Clear, Urine pH 6.5, Ur Specific [place] <= 1.005, Urine Protein Negative, Urine Glucose (UA) Negative, Urine Ketones Negative, Urine Blood Trace-i, Urine Nitrate Negative, Urine Bilirubin Negative, Urine Urobilinogen 0.2, Ur Leukocyte Esterase Negative, Urine RBC 3-5, Urine WBC 3-5, Ur Squamous Epith Cells Occasional, Urine Bacteria Trace 10/01/20 06:55: WBC 4.0 L, RBC 4.60, Hgb 13.3 D, Hct 40.9, MCV 89.1, MCH 28.9, MCHC 32.5, RDW 13.4, Plt Count 208, MPV 7.1 L, Neut % (Auto) 77.0, Lymph % (Auto) 14.9, [place] % (Auto) 7.9, Eos % (Auto) 0.1, Baso % (Auto) 0.2, Neut # (Auto) 3.1, Lymph # (Auto) 0.6 L, [place] # (Auto) 0.3, Eos # (Auto) 0.0, Baso # (Auto) 0.0 10/01/20 06:55: Sodium 140, Potassium 4.5 D, Chloride 106, Carbon Dioxide 30, Anion Gap 8.5, BUN 16, Creatinine 0.70, Estimated Creat Clear 60, Estimated GFR 82, Est GFR ( Amer) 99, Glucose 132 H, Calcium 7.5 L D, Total Bilirubin 0.6, AST 47 H, ALT 26, Alkaline Phosphatase 62, Total Protein 5.8 L, Albumin 3.3 L D, Globulin 2.5, Albumin/Globulin Ratio 1.3 10/01/20 06:55: Ferritin 508 H, Lactate Dehydrogenase 370, C-Reactive Protein 26.5 H 10/01/20 12:10: D-Dimer 0.60 H I & O for Last 24 hours: Intake & Output 09/28/20 09/29/20 09/30/20 10/01/20 23:59 23:59 23:59 23:59 Intake Total 1000 / 1000 1527 / 1527 Balance 1000 / 1000 1527 / 1527 Weight 170 lb 6 oz 171 lb Microbiology Reports for the Last 24 Hours: Microbiology 09/30/20 15:35 Blood Blood Culture - Preliminary - Constitutional mild distress - *Routine HEENT Exam Head: Present: normocephalic Eye: Present: EOMI ENT: Present: mucous membranes moist - *Routine Neck Exam Present: trachea midline. Absent: tracheal deviation - *Routine Respiratory Exam Present: rales. Absent: accessory muscle use - *Routine Cardiovascular Exam Present: RRR - *Routine Abdominal Exam Present: soft, normoactive bowel sounds. Absent: tenderness, rebound - *Routine Extremities Exam Present: full ROM, pulses intact. Absent: cyanosis, clubbing, calf tenderness - *Routine Skin Exam Present: intact, dry, warm. Absent: cyanosis, erythema - *Routine Neurological Exam Present: alert, oriented X3. Absent: motor deficit, hemineglect - Routine Psychiatric Exam Present: normal affect, normal thought process. Absent: auditory chase
--- NOTE | 2020-10-01 19:58 | PC.NURSE ---
Pt alert and oriented and able to make needs known. RR even and unlabored. Pt continues to be on vapotherm at 30 L and 45%. Pt is up to chair currently and has no c/o's. Pt denies soa. Pt has been on vapotherm since this am. Meds given per may. CB in reach. Pt states she is feeling better and wants to possibly be d/cd tomorrow. This RN explained that we would have to continue to see how she tolerated vapotherm and weaning the vapotherm is our goal. Pt denies n/v/d this shift. Report given to Cipriano Tran RN
--- NOTE | 2020-10-01 22:01 | PC.NURSE ---
She is A&Ox3. She continues on Vapotherm at 30LPM 45% FiO2. She denies SOA, pain, and cough. She transfers herself to the BS. She reports her last BM was on 09/30/20.
[2020-10-02] VITALS (10 sets, daily range): BP systolic 132–173; BP diastolic 59–73; PULSE 56–74; RESP 19–22; TEMP 36.5–37.3; O2SAT 89–97; BMI 29.4
--- NOTE | 2020-10-02 00:37 | PC.NURSE ---
Her O2 sat decreased to high 70s-low 80s. Vapotherm settings increased to 35LPM 90%FiO2.
[2020-10-02 06:56] LABS: Basophils % 0.1 % (0.1-2.0); Eosinophils % 0.1 % (0.1-12.0); Hemoglobin 13.7 g/dL (12.2-16.2); Lymphocytes # 0.8 K/mm3 (0.7-4.5); Mean Corpuscular HGB Conc 34.3 g/dL (31.8-35.4); Mean Corpuscular Hemoglobin 29.4 pg (27.0-31.2); Mean Corpuscular Volume 85.8 fl (81-99); Monocytes # 0.3 K/mm3 (0.1-1.0); Monocytes % 4.3 % (1.7-9.3); Neutrophils % 84.5 % (37.0-80.0); Platelet Count 246 K/mm3 (142-424); Red Blood Count 4.66 M/mm3 (4.20-5.40); Red Cell Distribution Width 13.9 % (11.5-17.5); White Blood Count 7.2 K/mm3 (4.8-10.8)
[2020-10-02 07:12] LABS: Anion Gap 9.8 mEq/L (5-15); Blood Urea Nitrogen 14 mg/dl (7-17); Carbon Dioxide 30 mmol/L (22.0-30.0); Chloride 104 mmol/L (98-107); Creatinine Clearance Estimated 62 mL/min (50-200); Estimated Glomerular Filt Rate 82 ml/min (>60); GFR (African American) 99 ML/MIN (>60); Glucose 124 mg/dl (74-100); Potassium 3.8 mmoL/L (3.5-5.1); Sodium 140 mmol/L (136-145)
--- NOTE | 2020-10-02 09:33 | PC.NURSE ---
Vapotherm currently 35 L and 80% 02
--- NOTE | 2020-10-02 13:07 | P.PN_ITS ---
Internal Medicine - PN: Subj *Date: 10/02/20 *Time: 18:38 Interval history: 75-year-old female patient sitting up in bed tolerating Vapotherm was unable to call to use. She denies any shortness of breath during the evening, but oxygen requirements did increase during night with Vapotherm increased. Patient voicing desire to be discharged to go to son's , long in-depth discussion concerning patient's COVID-19 status, increasing oxygen requirements, and no way that she be able to leave the hospital in the condition that she is in with her oxygen requirements. Exam Vital signs and Labs for Last 24 Hours: Temp Pulse Resp BP Pulse Ox 98.5 F 61 21 154/60 H 96 10/02/20 11:10/02/20 11:10/02/20 11:10/02/20 11:10/02/20 11:28 Laboratory Results - last 24 hr 10/01/20 06:55: Lactate Dehydrogenase 370 10/02/20 06:27: WBC 7.2 D, RBC 4.66, Hgb 13.7, Hct 40.0, MCV 85.8, MCH 29.4, MCHC 34.3, RDW 13.9, Plt Count 246, MPV 8.0, Neut % (Auto) 84.5 H, Lymph % (Auto) 11.0, [place] % (Auto) 4.3, Eos % (Auto) 0.1, Baso % (Auto) 0.1, Neut # (Auto) 6.0, Lymph # (Auto) 0.8, [place] # (Auto) 0.3, Eos # (Auto) 0.0, Baso # (Auto) 0.0 10/02/20 06:27: Sodium 140, Potassium 3.8, Chloride 104, Carbon Dioxide 30, Anion Gap 9.8, BUN 14, Creatinine 0.70, Estimated Creat Clear 62, Estimated GFR 82, Est GFR ( Amer) 99, Glucose 124 H, Calcium 8.0 L I & O for Last 24 hours: Intake & Output 09/29/20 09/30/20 10/01/20 10/02/20 23:59 23:59 23:59 23:59 Intake Total 1000 / 1000 3296 / 3296 1203 / 1203 Output Total 300 / 300 Balance 1000 / 1000 2996 / 2996 1202 / 1202 Weight 170 lb 6 oz 171 lb 176 lb 9 oz Microbiology Reports for the Last 24 Hours: Microbiology 09/30/20 15:35 Blood Blood Culture - Preliminary Gram Negative Rods - Constitutional no acute distress - *Routine HEENT Exam Head: Present: normocephalic Eye: Present: EOMI ENT: Present: mucous membranes moist - *Routine Neck Exam Present: trachea midline. Absent: tracheal deviation - *Routine Respiratory Exam Present: crackles. Absent: accessory muscle use - *Routine Cardiovascular Exam Present: RRR - *Routine Abdominal Exam Present: soft, normoactive bowel sounds. Absent: tenderness, firm - *Routine Extremities Exam Present: full ROM, pulses intact. Absent: cyanosis, clubbing, calf tenderness - *Routine Skin Exam Present: intact, dry, warm. Absent: cyanosis, erythema - *Routine Neurological Exam Present: alert, oriented X3. Absent: motor deficit, plantar reflex - Routine Psychiatric Exam Present: normal affect, normal thought process, auditory hallucinations, agitated Assessment and Plan (1) Acute hypoxemic respiratory failure due to COVID-19 Status: Acute Category: Medical Code(s): U07.1 - COVID-19; J96.01 - Acute respiratory failure with hypoxia (2) Gastroenteritis Status: Acute Category: Medical Code(s): K52.9 - Noninfective gastroenteritis and colitis, unspecified (3) Pneumonia due to COVID-19 virus Status: Acute Category: Medical Code(s): U07.1 - COVID-19; J12.82 - Pneumonia due to coronavirus disease 2019 - Assessment and plan all Dx Assessment and Plan for all problems:: Rounded with Dr. Trivedi, all orders per Dr. Trivedi: 1. Continue current medical regimen 2. Wean
--- NOTE | 2020-10-02 13:19 | HMH.PULMPN ---
Internal Medicine - PN: Subj *Date: 10/02/20 *Time: 13:20 Interval history: No acute respiratory vents overnight. Patient FiO2 requirements worsened from yesterday. Exam - Constitutional Constitutional:: Present: no acute distress, comfortable - Eye Exam Eyes:: Present: normal appearance both eyes and related structures - Neck Exam Neck:: Present: normal visual inspection - Respiratory Exam Respiratory:: Present: able to speak in complete sentences, respiratory distress, crackles - Cardiovascular Exam Cardiac:: Present: S1, S2 - GI Exam GI:: Present: soft - Skin Exam Skin: Present: warm, no rash, dry - Neurological Exam Neurological: Present: alert, awake, normal cognition - Extremities Exam Extremities: Present: no cyanosis, no clubbing, no edema Assessment and Plan (1) Acute hypoxemic respiratory failure due to COVID-19 Status: Acute Category: Medical Code(s): U07.1 - COVID-19; J96.01 - Acute respiratory failure with hypoxia (2) Gastroenteritis Status: Acute Category: Medical Code(s): K52.9 - Noninfective gastroenteritis and colitis, unspecified (3) Pneumonia due to COVID-19 virus Status: Acute Category: Medical Code(s): U07.1 - COVID-19; J12.82 - Pneumonia due to coronavirus disease 2019 - Assessment and plan all Dx Assessment and Plan for all problems:: #COVID-19 pneumonia: #Acute hypoxic respiratory failure: 75-year-old no prior respiratory complaint no significant smoking history present with abdominal complaints found to be COVID-19 positive. Patient needing increasing oxygen requirement and currently high flow nasal cannula. CTA from admission reviewed, did not show any evidence of pulmonary however showed bilateral diffuse patchy and groundglass opacities. Lymphopenia noted. Interval update: Patient FiO2 requirements increased, this morning on 80% FiO2 saturating 94%. Patient personally denies any respiratory distress. Auscultation relatively stable from yesterday. Inflammatory markers including CRP LDH and D-dimer elevated 26.5, 370 & 0.6. Blood cultures on 1 bottle from admission growing gram-negative rods. Patient expressed her wishes to attend her son's today however after extensive discussions she understands her current clinical scenario and agreed to stay in the hospital and undergo current medical management Plan: -Awake proning protocol -COntinue remdesivir along with dexamethasone -Continue azithromycin, change ceftriaxone to cefepime given positive blood cultures - Continue oxygen supplementation currently on high flow nasal cannula, -Albuterol inhaler every 6 hours as needed -Continue chemical DVT prophylaxis. #Thank you for involving pulmonary in this patient care. We'll continue to follow.
[2020-10-02 16:36] LABS: Adenovirus,PCR Not Detected (NotDetected); Bordetella Pertussis Not Detected (NotDetected); Chlamydophila Pneumoniae, PCR Not Detected (NotDetected); Coronavirus 229E Not Detected (NotDetected); Coronavirus NL63 Not Detected (NotDetected); Coronavirus OC43 Not Detected (NotDetected); Coronovirus HKU1,PCR Not Detected (NotDetected); Human Metapneumovirus Not Detected (NotDetected); Influenza A, PCR Not Detected (NotDetected); Influenza AH1, 2009 Not Detected (NotDetected); Influenza AH1, PCR Not Detected (NotDetected); Influenza AH3,PCR Not Detected (NotDetected); Influenza B, PCR Not Detected (NotDetected); Mycoplasma Pneumoniae, PCR Not Detected (NotDetected); Parainfluenza 1, PCR Not Detected (NotDetected); Parainfluenza 2, PCR Not Detected (NotDetected); Parainfluenza 3, PCR Not Detected (NotDetected); Parainfluenza 4, PCR Not Detected (NotDetected); Respiratory Syncytial Virus Not Detected (NotDetected); Rhinovirus/Enterovirus Not Detected (NotDetected)
--- NOTE | 2020-10-02 18:38 | PC.NURSE ---
Pt continues to be on vapotherm at 35 L and 80% and remains in the low 90's in 02 saturation. VSS. Pt is alert and oriented x 4. Pt was wanting to leave this am in order to go to son's whom recently , at this time they bare planning to postpone services, Marcy Partida APRN stated as well as family members. Did also receive order for miralax and cholesterol med per may. CB in reach. Have encouraged pt to continue to be out of bed as tolerated. Pt has taken in small amt of po intake this shift.
[2020-10-03] VITALS (9 sets, daily range): BP systolic 120–143; BP diastolic 55–70; PULSE 62–81; RESP 17–24; TEMP 36.6–37.3; O2SAT 86–98; BMI 29.4
--- NOTE | 2020-10-03 04:23 | PC.NURSE ---
Pt currently on Vapotherm 40L 100% and NRB. MD was notified of decrease in O2 sat and need for NRB. O2 sats 86-90%. New orders received and carried out. Lasix 40 mg IV. Dexamethasone 10 mg BID. Pt had incontinent episode of urine in bed. Pt has been up to BSC x2 this shift. Pt has had one medium soft stool. Medications administered per may. No other concerns. Will continue to monitor.
[2020-10-03 06:29] LABS: Basophils % 0.1 % (0.1-2.0); Hematocrit 39.7 % (37.0-47.0); Hemoglobin 13.6 g/dL (12.2-16.2); Lymphocytes # 0.8 K/mm3 (0.7-4.5); Lymphocytes % 10.7 % (10-50); Mean Corpuscular HGB Conc 34.3 g/dL (31.8-35.4); Mean Corpuscular Hemoglobin 29.8 pg (27.0-31.2); Mean Corpuscular Volume 86.9 fl (81-99); Mean Platelet Volume 7.8 fl (7.4-10.4); Monocytes # 0.4 K/mm3 (0.1-1.0); Monocytes % 5.5 % (1.7-9.3); Neutrophils # 6.4 K/mm3 (1.8-7.8); Neutrophils % 83.7 % (37.0-80.0); Platelet Count 286 K/mm3 (142-424); Red Blood Count 4.57 M/mm3 (4.20-5.40); Red Cell Distribution Width 13.8 % (11.5-17.5); White Blood Count 7.6 K/mm3 (4.8-10.8)
[2020-10-03 06:45] LABS: Anion Gap 10.2 mEq/L (5-15); Blood Urea Nitrogen 17 mg/dl (7-17); Calcium 7.9 mg/dl (8.4-10.2); Carbon Dioxide 33 mmol/L (22.0-30.0); Chloride 101 mmol/L (98-107); Creatinine Clearance Estimated 62 mL/min (50-200); Estimated Glomerular Filt Rate 82 ml/min (>60); GFR (African American) 99 ML/MIN (>60); Glucose 101 mg/dl (74-100); Potassium 4.2 mmoL/L (3.5-5.1); Sodium 140 mmol/L (136-145)
[2020-10-03 07:33] LABS: Alanine Aminotransferase 22 U/L (12-78); Albumin Level 3.2 g/dl (3.5-5.0); Alkaline Phosphatase 66 U/L (38-126); Aspartate Amino Transferase 37 U/L (14-36); Bilirubin,Direct 0.4 mg/dl (0.0-0.4); Bilirubin,Indirect 0.3 mg/dL (0.0-0.9); Bilirubin,Total 0.7 mg/dl (0.2-1.3); Bilirubin,Unconjugated 0.2 mg/dL (0.0-1.1); Total Protein,Serum 5.4 g/dl (6.3-8.2)
--- NOTE | 2020-10-03 09:21 | HMH.ACPN2 ---
Internal Medicine - PN: Subj *Date: 10/03/20 *Time: 12:29 Interval history: 75-year-old female patient sitting up in bed Vapotherm at 40 L, this is increased from 35 during the night. She is tolerating solids and liquids without any difficulty Exam Vital signs and Labs for Last 24 Hours: Temp Pulse Resp BP Pulse Ox 98.0 F 62 17 120/64 88 L 10/03/20 04:00 10/03/20 04:00 10/03/20 04:00 10/03/20 04:00 10/03/20 06:07 Laboratory Results - last 24 hr 10/02/20 16:15: Chlamy pneumoniae PCR Not detected, Adenovirus (PCR) Not detected, B. pertussis DNA (PCR) Not detected, Coronavirus OC43 (PCR) Not detected, Coronavirus HKU1 (PCR) Not detected, Coronavirus 229E (PCR) Not detected, Coronavirus NL63 (PCR) Not detected, Human Metapneumovir PCR Not detected, Influenza A (H1) PCR Not detected, Influ A (H1N1/09) PCR Not detected, Influenza A (H3) PCR Not detected, Influenza Type A (PCR) Not detected, Influenza Type B (PCR) Not detected, M. pneumoniae (PCR) Not detected, Parainfluenza 1 (PCR) Not detected, Parainfluenza 2 (PCR) Not detected, Parainfluenza 3 (PCR) Not detected, Parainfluenza 4 (PCR) Not detected, RSV (PCR) Not detected, Entero/Rhino (PCR) Not detected 10/03/20 06:16: WBC 7.6, RBC 4.57, Hgb 13.6, Hct 39.7, MCV 86.9, MCH 29.8, MCHC 34.3, RDW 13.8, Plt Count 286, MPV 7.8, Neut % (Auto) 83.7 H, Lymph % (Auto) 10.7, [place] % (Auto) 5.5, Eos % (Auto) 0.0 L, Baso % (Auto) 0.1, Neut # (Auto) 6.4, Lymph # (Auto) 0.8, [place] # (Auto) 0.4, Eos # (Auto) 0.0, Baso # (Auto) 0.0 10/03/20 06:16: Sodium 140, Potassium 4.2, Chloride 101, Carbon Dioxide 33 H, Anion Gap 10.2, BUN 17, Creatinine 0.70, Estimated Creat Clear 62, Estimated GFR 82, Est GFR ( Amer) 99, Glucose 101 H, Calcium 7.9 L 10/03/20 06:16: Total Bilirubin 0.7, Direct Bilirubin 0.4, Conjugated Bilirubin 0.0, Indirect Bilirubin 0.3, Unconjugated Bilirubin 0.2, AST 37 H, ALT 22, Alkaline Phosphatase 66, Total Protein 5.4 L, Albumin 3.2 L I & O for Last 24 hours: Intake & Output 09/30/20 10/01/20 10/02/20 10/03/20 23:59 23:59 23:59 23:59 Intake Total 1000 / 1000 3296 / 3296 1992 Output Total 300 / 300 301 / 301 Balance 1000 / 1000 2996 / 2996 1692 / 1692 Weight 170 lb 6 oz 171 lb 176 lb 9 oz 176 lb 8.915 oz Microbiology Reports for the Last 24 Hours: Microbiology 09/30/20 15:35 Blood Blood Culture - Final [place] aggl[place] 09/30/20 15:35 Blood Blood Culture - Preliminary NO GROWTH AFTER 48 HOURS - Constitutional no acute distress - *Routine HEENT Exam Head: Present: normocephalic Eye: Present: EOMI ENT: Present: mucous membranes moist - *Routine Neck Exam Present: trachea midline. Absent: tracheal deviation - *Routine Respiratory Exam Present: CTA bilaterally. Absent: accessory muscle use - *Routine Cardiovascular Exam Present: RRR - *Routine Abdominal Exam Present: soft, normoactive bowel sounds. Absent: tenderness - *Routine Extremities Exam Present: full ROM, pulses intact. Absent: cyanosis, clubbing, edema, calf tenderness - *Routine Skin Exam Present: dry, warm. Absent: intact, cyanosis, erythema - *Routine Neurological Exam Present: alert, oriented X3. Absent: motor deficit - Routine Psychiatric Exam Present: normal affect, normal thought process Assessment and Plan (1) Acute hypoxemic respiratory failure due to COVID-19 Status: Acute Category: Medical Code(s): U07.1 - COVID-19; J96.01 - Acute respiratory failure with hypoxia (2) Gastroenteritis Status: Acute Category: Medical Code(s): K52.9 - Noninfective gastroenteritis and colitis, unspecified (3) Pneumonia due to COVID-19 virus Status: Acute Category: Medical Code(s): U07.1 - COVID-19; J12.82 - Pneumonia due to coronavirus disease 2019 - Assessment and plan all Dx Assessment and Plan for all problems:: Rounded with Dr. Trivedi, all orders per Dr. Trivedi: 1. We will
--- NOTE | 2020-10-03 10:25 | HMH.PULMPN ---
Internal Medicine - PN: Subj *Date: 10/03/20 *Time: 10:25 Interval history: Patient denies any respiratory distress. Denies any new complaints. Exam - Constitutional Constitutional:: Present: no acute distress, comfortable - HENMT Exam HENMT: Present: atraumatic, oral mucosa normal - Eye Exam Eyes:: Present: normal appearance both eyes and related structures - Neck Exam Neck:: Present: normal visual inspection - Respiratory Exam Respiratory:: Present: able to speak in complete sentences. Absent: accessory muscle use, crackles, wheezing - Cardiovascular Exam Cardiac:: Present: S1, S2 - GI Exam GI:: Present: soft - Skin Exam Skin: Present: warm, no rash - Neurological Exam Neurological: Present: alert, awake - Extremities Exam Extremities: Present: no cyanosis, no clubbing, no edema Assessment and Plan (1) Acute hypoxemic respiratory failure due to COVID-19 Status: Acute Category: Medical Code(s): U07.1 - COVID-19; J96.01 - Acute respiratory failure with hypoxia (2) Gastroenteritis Status: Acute Category: Medical Code(s): K52.9 - Noninfective gastroenteritis and colitis, unspecified (3) Pneumonia due to COVID-19 virus Status: Acute Category: Medical Code(s): U07.1 - COVID-19; J12.82 - Pneumonia due to coronavirus disease 2019 - Assessment and plan all Dx Assessment and Plan for all problems:: #COVID-19 pneumonia: #Acute hypoxic respiratory failure: 75-year-old no prior respiratory complaint no significant smoking history present with abdominal complaints found to be COVID-19 positive. Patient needing increasing oxygen requirement and currently high flow nasal cannula. CTA from admission reviewed, did not show any evidence of pulmonary however showed bilateral diffuse patchy and groundglass opacities. Lymphopenia noted. Inflammatory markers including CRP LDH and D-dimer elevated 26.5, 370 & 0.6. Blood cultures on 1 bottle from admission growing gram-negative rods, likely contaminant, however patient antibiotics were escalated to cefepime. We will follow repeat blood cultures. Interval update: Patient denies any respiratory distress. She denies any new complaint. However patient after requirements continued to escalate currently on 40 L 100% saturating 89 to 90%. Plan: - Co-Ordinate and initiate awake proning protocol - Tocilizumab 8mg/kg -COntinue remdesivir along with dexamethasone @ 10mg BID -Continue azithromycin, change ceftriaxone to cefepime given positive blood cultures - Continue oxygen supplementation currently on high flow nasal cannula, -Albuterol inhaler every 6 hours as needed -Continue chemical DVT prophylaxis. #Thank you for involving pulmonary in this patient care. We'll continue to follow.
--- NOTE | 2020-10-03 17:58 | PC.NURSE ---
Pt has been prone for most of this shift, o2 sats have been stable. Pt has appeared anxious a few times this shift, not understanding why she was here and why she needed to lay prone so much. Pt was easily redirected and understood. No other acute changes or complaints at this time. Will continue to monitor.
[2020-10-04] VITALS (10 sets, daily range): BP systolic 123–176; BP diastolic 54–76; PULSE 55–80; RESP 19–22; TEMP 36.6–37.1; O2SAT 88–96; BMI 29.4
[2020-10-04 07:20] LABS: Basophils % 0.3 % (0.1-2.0); Hematocrit 39.6 % (37.0-47.0); Lymphocytes # 0.4 K/mm3 (0.7-4.5); Lymphocytes % 11.4 % (10-50); Mean Corpuscular HGB Conc 35.3 g/dL (31.8-35.4); Mean Corpuscular Hemoglobin 29.8 pg (27.0-31.2); Mean Corpuscular Volume 84.5 fl (81-99); Mean Platelet Volume 8.5 fl (7.4-10.4); Monocytes # 0.2 K/mm3 (0.1-1.0); Monocytes % 6.2 % (1.7-9.3); Neutrophils # 2.8 K/mm3 (1.8-7.8); Platelet Count 287 K/mm3 (142-424); Red Blood Count 4.69 M/mm3 (4.20-5.40); Red Cell Distribution Width 13.6 % (11.5-17.5); White Blood Count 3.4 K/mm3 (4.8-10.8)
[2020-10-04 07:36] LABS: Alanine Aminotransferase 21 U/L (12-78); Alkaline Phosphatase 66 U/L (38-126); Aspartate Amino Transferase 34 U/L (14-36); Bilirubin,Direct 0.5 mg/dl (0.0-0.4); Bilirubin,Indirect 0.2 mg/dL (0.0-0.9); Bilirubin,Total 0.7 mg/dl (0.2-1.3); Bilirubin,Unconjugated 0.2 mg/dL (0.0-1.1); Total Protein,Serum 5.3 g/dl (6.3-8.2)
[2020-10-04 07:37] LABS: Anion Gap 11.3 mEq/L (5-15); Blood Urea Nitrogen 16 mg/dl (7-17); Calcium 7.9 mg/dl (8.4-10.2); Carbon Dioxide 28 mmol/L (22.0-30.0); Chloride 103 mmol/L (98-107); Creatinine Clearance Estimated 62 mL/min (50-200); Estimated Glomerular Filt Rate 121 ml/min (>60); GFR (African American) 146 ML/MIN (>60); Glucose 141 mg/dl (74-100); Potassium 4.3 mmoL/L (3.5-5.1); Sodium 138 mmol/L (136-145)
--- NOTE | 2020-10-04 09:18 | HMH.ACPN2 ---
Internal Medicine - PN: Subj *Date: 10/04/20 *Time: 15:14 Interval history: 75 YOF sitting up in chair at bedside. Oxygen requirements are decreased to 30 L per Vapotherm down from 40 L yesterday. She reports she is feeling better today, tolerating solids and liquids without nausea. Exam Vital signs and Labs for Last 24 Hours: Temp Pulse Resp BP Pulse Ox 98 F 78 19 146/66 H 90 L 10/04/20 07:36 10/04/20 07:36 10/04/20 07:36 10/04/20 07:36 10/04/20 07:36 Laboratory Results - last 24 hr 10/04/20 06:58: WBC 3.4 L D, RBC 4.69, Hgb 14.0, Hct 39.6, MCV 84.5, MCH 29.8, MCHC 35.3, RDW 13.6, Plt Count 287, MPV 8.5, Neut % (Auto) 82.0 H, Lymph % (Auto) 11.4, [place] % (Auto) 6.2, Eos % (Auto) 0.0 L, Baso % (Auto) 0.3, Neut # (Auto) 2.8, Lymph # (Auto) 0.4 L, [place] # (Auto) 0.2, Eos # (Auto) 0.0, Baso # (Auto) 0.0 10/04/20 06:58: Sodium 138, Potassium 4.3, Chloride 103, Carbon Dioxide 28, Anion Gap 11.3, BUN 16, Creatinine 0.50 L D, Estimated Creat Clear 62, Estimated GFR 121, Est GFR ( Amer) 146 D, Glucose 141 H, Calcium 7.9 L 10/04/20 06:58: Total Bilirubin 0.7, Direct Bilirubin 0.5 H, Conjugated Bilirubin 0.0, Indirect Bilirubin 0.2, Unconjugated Bilirubin 0.2, AST 34, ALT 21, Alkaline Phosphatase 66, Total Protein 5.3 L, Albumin 3.0 L I & O for Last 24 hours: Intake & Output 10/01/20 10/02/20 10/03/20 10/04/20 23:59 23:59 23:59 23:59 Intake Total 3296 / 3296 1992 240 / 240 240 / 240 Output Total 300 / 300 301 / 301 150 / 150 Balance 2996 / 2996 1692 / 1692 240 / 90 90 / 90 Weight 171 lb 176 lb 9 oz 176 lb 8.915 oz 176 lb 8.739 oz Microbiology Reports for the Last 24 Hours: Microbiology 09/30/20 15:35 Blood Blood Culture - Final [place] aggl[place] - Constitutional no acute distress - *Routine HEENT Exam Head: Present: normocephalic Eye: Present: EOMI ENT: Present: mucous membranes moist - *Routine Neck Exam Present: supple, trachea midline. Absent: tracheal deviation - *Routine Respiratory Exam Present: crackles - *Routine Cardiovascular Exam Present: RRR - *Routine Abdominal Exam Present: soft, normoactive bowel sounds. Absent: tenderness, firm - *Routine Extremities Exam Present: full ROM, pulses intact. Absent: cyanosis, clubbing, calf tenderness - *Routine Skin Exam Present: intact, warm. Absent: cyanosis, erythema - *Routine Neurological Exam Present: alert, oriented X3. Absent: motor deficit - Routine Psychiatric Exam Present: normal affect, normal thought process. Absent: auditory hallucinations, visual hallucinations Assessment and Plan (1) Acute hypoxemic respiratory failure due to COVID-19 Status: Acute Category: Medical Code(s): U07.1 - COVID-19; J96.01 - Acute respiratory failure with hypoxia (2) Gastroenteritis Status: Acute Category: Medical Code(s): K52.9 - Noninfective gastroenteritis and colitis, unspecified (3) Pneumonia due to COVID-19 virus Status: Acute Category: Medical Code(s): U07.1 - COVID-19; J12.82 - Pneumonia due to coronavirus disease 2019 (4) Acute respiratory failure with hypoxemia Status: Acute Category: Medical Code(s): J96.01 - Acute respiratory failure with hypoxia - Assessment and plan all Dx Assessment and Plan for all problems:: Rounded with Dr. Trivedi, all orders per Dr. Trivedi: 1. Continue to wean oxygen as tolerated 2. Continue current medical regimen
--- NOTE | 2020-10-04 09:44 | P.PN_ITS ---
Internal Medicine - PN: Subj *Date: 10/04/20 *Time: 09:44 Interval history: No acute respiratory events overnight. Patient continued to improve. Exam - Constitutional Constitutional:: Present: no acute distress, comfortable - HENMT Exam HENMT: Present: normocephalic, atraumatic - Eye Exam Eyes:: Present: normal appearance both eyes and related structures - Neck Exam Neck:: Present: normal visual inspection, thyroid normal - Respiratory Exam Respiratory:: Present: able to speak in complete sentences, respiratory distress, crackles - Cardiovascular Exam Cardiac:: Present: S1, S2 - GI Exam GI:: Present: soft, no hepatosplenomegaly - Skin Exam Skin: Present: warm, no rash - Neurological Exam Neurological: Present: alert, awake, normal cognition - Extremities Exam Extremities: Present: no cyanosis, no clubbing - Psychiatric Exam Psychiatric: Present: normal affect, appearance grossly normal Assessment and Plan (1) Acute hypoxemic respiratory failure due to COVID-19 Status: Acute Category: Medical Code(s): U07.1 - COVID-19; J96.01 - Acute respiratory failure with hypoxia (2) Gastroenteritis Status: Acute Category: Medical Code(s): K52.9 - Noninfective gastroenteritis and colitis, unspecified (3) Pneumonia due to COVID-19 virus Status: Acute Category: Medical Code(s): U07.1 - COVID-19; J12.82 - Pneumonia due to coronavirus disease 2019 - Assessment and plan all Dx Assessment and Plan for all problems:: #COVID-19 pneumonia: #Acute hypoxic respiratory failure: 75-year-old no prior respiratory complaint no significant smoking history present with abdominal complaints found to be COVID-19 positive. Patient needing increasing oxygen requirement and currently high flow nasal cannula. CTA from admission reviewed, did not show any evidence of pulmonary however showed bilateral diffuse patchy and groundglass opacities. Lymphopenia noted. Inflammatory markers including CRP LDH and D-dimer elevated 26.5, 370 & 0.6. Blood cultures on 1 bottle from admission growing gram-negative rods, likely contaminant, however patient antibiotics were escalated to cefepime. We will follow repeat blood cultures. Interval update: Patient received a dose of tocilizumab. Initiate awake proning protocol, tolerating well with saturations improved to 100% on proning. Overall patient clinically is improved from yesterday currently on 40 L 80% FiO2. Continue to receive cefepime, awaiting repeat blood cultures and will de- escalate antibiotics Plan: -Awake proning protocol -COntinue remdesivir along with dexamethasone @ 10mg BID -Continue azithromycin, cefepime given positive blood cultures - Continue oxygen supplementation currently on high flow nasal cannula, -Albuterol inhaler every 6 hours as needed -Continue chemical DVT prophylaxis. #Thank you for involving pulmonary in this patient care. We'll continue to follow.
[2020-10-04 11:22] LABS: C-Reactive Protein 48.4 mg/L (0-4)
--- NOTE | 2020-10-04 14:29 | DIET.NUTRFU ---
Addendum entered by Evita Flores 10/16/20 10:01: Intakes declining from 50-75% to 25-50%, weight stable. Ensure increased to BID Addendum entered by Evita Flores 10/14/20 10:06: PO intakes 50-75% + daily ensure, BG have remained moderately elevated other than an episode of hypoglycemia yesterday. No changes at this time. Addendum entered by Evita Flores 10/11/20 14:52: No changes, BG normalizing, continues on regular diet with 50% intakes plus daily ensure. Addendum entered by Evita Flores 10/09/20 10:33: Continues with no changes to nutritional status/care plan. Continuing to monitor. Addendum entered by Evita Flores 10/07/20 13:56: No changes nutritional status stated in previous note. BG avg. 145. Continuing to monitor. Original Note: PO intakes 50% with good toleration, abd. s/s improved. Normal bowel function. Weight appears stable however suspect inaccuracies recorded weights past 48h. BG moderately elevated 124, 141. She continues on regular diet, once daily ensure on diet order. Diet edu provided for nutritional considerations COVID recovery.
[2020-10-05] VITALS (12 sets, daily range): BP systolic 122–156; BP diastolic 48–72; PULSE 53–78; RESP 20–24; TEMP 36.1–37; O2SAT 87–94; BMI 28.2
--- NOTE | 2020-10-05 06:17 | PC.NURSE ---
pt AxOx4, has remained on vapotherm t/o shift with sats 90-92% t/o shift, has rested well, no complaints of pain, remained in prone position t/o majority of shift
[2020-10-05 08:20] LABS: Aspartate Amino Transferase 38 U/L (14-36); Bilirubin,Direct 0.5 mg/dl (0.0-0.4); Bilirubin,Indirect 0.3 mg/dL (0.0-0.9); Bilirubin,Total 0.8 mg/dl (0.2-1.3); Bilirubin,Unconjugated 0.3 mg/dL (0.0-1.1)
[2020-10-05 08:21] LABS: Alanine Aminotransferase 33 U/L (12-78); Albumin Level 3.5 g/dl (3.5-5.0); Alkaline Phosphatase 71 U/L (38-126); Total Protein,Serum 6.1 g/dl (6.3-8.2)
[2020-10-05 08:22] LABS: Blood Urea Nitrogen 18 mg/dl (7-17); Calcium 8.3 mg/dl (8.4-10.2); Carbon Dioxide 27 mmol/L (22.0-30.0); Chloride 102 mmol/L (98-107); Creatinine Clearance Estimated 60 mL/min (50-200); Estimated Glomerular Filt Rate 98 ml/min (>60); GFR (African American) 118 ML/MIN (>60); Glucose 165 mg/dl (74-100); Sodium 139 mmol/L (136-145)
[2020-10-05 08:28] LABS: Basophils % 0.4 % (0.1-2.0); Hematocrit 44.2 % (37.0-47.0); Hemoglobin 14.9 g/dL (12.2-16.2); Lymphocytes # 0.5 K/mm3 (0.7-4.5); Lymphocytes % 5.3 % (10-50); MANUAL DIFFERENTIAL MANUAL DIFFERENTIAL (MANUAL DIFF); Mean Corpuscular HGB Conc 33.8 g/dL (31.8-35.4); Mean Corpuscular Hemoglobin 29.2 pg (27.0-31.2); Mean Corpuscular Volume 86.6 fl (81-99); Mean Platelet Volume 7.9 fl (7.4-10.4); Monocytes # 0.4 K/mm3 (0.1-1.0); Monocytes % 3.8 % (1.7-9.3); Neutrophils # 8.8 K/mm3 (1.8-7.8); Neutrophils % 90.4 % (37.0-80.0); Platelet Count 415 K/mm3 (142-424); Red Cell Distribution Width 13.7 % (11.5-17.5); White Blood Count 9.7 K/mm3 (4.8-10.8)
[2020-10-05 08:57] LABS: Lymphocytes % 7 % (10-50); Monocytes % 2 % (2-9); Neutrophils % 91 % (42-76); Total Cells Counted 100
[2020-10-05 08:58] LABS: Platelet Estimate Normal; RBC Morphology Normal
--- NOTE | 2020-10-05 10:33 | PC.NURSE ---
Rn called and pt sats dropped to 75% when she got up to chair. She was put back to bed to prone. Sats rebounded to 87%. Increased Vapo to 35L and 90%. Will continue to moniter.
--- NOTE | 2020-10-05 13:53 | HMH.ACPN2 ---
Internal Medicine - PN: Subj *Date: 10/05/20 *Time: 13:57 Interval history: Patient notes no significant declines during the night. Respiratory status is stable. Denies increasing air hunger, shortness of breath or chest pain. Is anxious to go home. Pulmonary notes and regimen are reviewed. Exam Vital signs and Labs for Last 24 Hours: Temp Pulse Resp BP Pulse Ox 96.9 F L 64 22 140/60 92 L 10/05/20 12:00 10/05/20 12:00 10/05/20 12:00 10/05/20 12:00 10/05/20 12:00 Laboratory Results - last 24 hr 10/05/20 07:50: WBC 9.7 D, RBC 5.10, Hgb 14.9, Hct 44.2, MCV 86.6, MCH 29.2, MCHC 33.8, RDW 13.7, Plt Count 415 D, MPV 7.9, Neut % (Auto) 90.4 H, Lymph % (Auto) 5.3 L, [place] % (Auto) 3.8, Eos % (Auto) 0.0 L, Baso % (Auto) 0.4, Neut # (Auto) 8.8 H, Lymph # (Auto) 0.5 L, [place] # (Auto) 0.4, Eos # (Auto) 0.0, Baso # (Auto) 0.0, Total Counted 100, Neutrophils % (Manual) 91 H, Lymphocytes % (Manual) 7 L, Monocytes % (Manual) 2, Platelet Estimate Normal, RBC Morphology Normal 10/05/20 07:50: Sodium 139, Potassium 4.0, Chloride 102, Carbon Dioxide 27, Anion Gap 14.0, BUN 18 H, Creatinine 0.60, Estimated Creat Clear 60, Estimated GFR 98, Est GFR ( Amer) 118, Glucose 165 H, Calcium 8.3 L 10/05/20 07:50: Total Bilirubin 0.8, Direct Bilirubin 0.5 H, Conjugated Bilirubin 0.0, Indirect Bilirubin 0.3, Unconjugated Bilirubin 0.3, AST 38 H, ALT 33 D, Alkaline Phosphatase 71, Total Protein 6.1 L, Albumin 3.5 D I & O for Last 24 hours: Intake & Output 10/02/20 10/03/20 10/04/20 10/05/20 23:59 23:59 23:59 23:59 Intake Total 1992 240 / 240 1300 / 1300 120 / 120 Output Total 301 / 301 150 / 150 Balance 1692 / 1692 240 / 90 1150 / 1150 120 / 120 Weight 176 lb 9 oz 176 lb 8.915 oz 176 lb 8.739 oz 169 lb 7 oz Microbiology Reports for the Last 24 Hours: Microbiology 10/03/20 09:43 Blood Blood Culture - Preliminary NO GROWTH AFTER 48 HOURS 10/03/20 09:50 Blood Blood Culture - Preliminary NO GROWTH AFTER 48 HOURS - Constitutional no acute distress - *Routine HEENT Exam Head: Present: normocephalic Eye: Present: EOMI, PERRL ENT: Present: mucous membranes moist - *Routine Neck Exam Present: supple. Absent: lymphadenopathy - *Routine Respiratory Exam Present: CTA bilaterally, crackles, diminished air movement - *Routine Cardiovascular Exam Present: RRR - *Routine Abdominal Exam Present: soft, normoactive bowel sounds. Absent: tenderness - *Routine Extremities Exam Absent: cyanosis, clubbing, edema - *Routine Skin Exam Present: warm. Absent: rash - *Routine Neurological Exam Present: alert, oriented X3 Assessment and Plan (1) Acute hypoxemic respiratory failure due to COVID-19 Status: Acute Category: Medical Code(s): U07.1 - COVID-19; J96.01 - Acute respiratory failure with hypoxia (2) Gastroenteritis Status: Acute Category: Medical Code(s): K52.9 - Noninfective gastroenteritis and colitis, unspecified (3) Pneumonia due to COVID-19 virus Status: Acute Category: Medical Code(s): U07.1 - COVID-19; J12.82 - Pneumonia due to coronavirus disease 2019 (4) Acute respiratory failure with hypoxemia Status: Acute Category: Medical Code(s): J96.01 - Acute respiratory failure with hypoxia - Assessment and plan all Dx Assessment and Plan for all problems:: We will continue current regimen. See chart for further orders.
--- NOTE | 2020-10-05 14:49 | HMH.ACPN ---
Internal Medicine - PN: Subj *Date: 10/05/20 *Time: 14:49 Exam Vital signs and Labs for Last 24 Hours: Temp Pulse Resp BP Pulse Ox 96.9 F L 64 22 140/60 92 L 10/05/20 12:00 10/05/20 12:00 10/05/20 12:00 10/05/20 12:00 10/05/20 14:17 Laboratory Results - last 24 hr 10/05/20 07:50: WBC 9.7 D, RBC 5.10, Hgb 14.9, Hct 44.2, MCV 86.6, MCH 29.2, MCHC 33.8, RDW 13.7, Plt Count 415 D, MPV 7.9, Neut % (Auto) 90.4 H, Lymph % (Auto) 5.3 L, [place] % (Auto) 3.8, Eos % (Auto) 0.0 L, Baso % (Auto) 0.4, Neut # (Auto) 8.8 H, Lymph # (Auto) 0.5 L, [place] # (Auto) 0.4, Eos # (Auto) 0.0, Baso # (Auto) 0.0, Total Counted 100, Neutrophils % (Manual) 91 H, Lymphocytes % (Manual) 7 L, Monocytes % (Manual) 2, Platelet Estimate Normal, RBC Morphology Normal 10/05/20 07:50: Sodium 139, Potassium 4.0, Chloride 102, Carbon Dioxide 27, Anion Gap 14.0, BUN 18 H, Creatinine 0.60, Estimated Creat Clear 60, Estimated GFR 98, Est GFR ( Amer) 118, Glucose 165 H, Calcium 8.3 L 10/05/20 07:50: Total Bilirubin 0.8, Direct Bilirubin 0.5 H, Conjugated Bilirubin 0.0, Indirect Bilirubin 0.3, Unconjugated Bilirubin 0.3, AST 38 H, ALT 33 D, Alkaline Phosphatase 71, Total Protein 6.1 L, Albumin 3.5 D I & O for Last 24 hours: Intake & Output 10/02/20 10/03/20 10/04/20 10/05/20 23:59 23:59 23:59 23:59 Intake Total 1992 240 / 240 1300 / 1300 120 / 120 Output Total 301 / 301 150 / 150 Balance 1692 / 1692 240 / 90 1150 / 1150 120 / 120 Weight 80.087 kg 80.085 kg 80.08 kg 76.856 kg Microbiology Reports for the Last 24 Hours: Microbiology 10/03/20 09:43 Blood Blood Culture - Preliminary NO GROWTH AFTER 48 HOURS 10/03/20 09:50 Blood Blood Culture - Preliminary NO GROWTH AFTER 48 HOURS Assessment and Plan (1) Acute hypoxemic respiratory failure due to COVID-19 Status: Acute Category: Medical Code(s): U07.1 - COVID-19; J96.01 - Acute respiratory failure with hypoxia (2) Gastroenteritis Status: Acute Category: Medical Code(s): K52.9 - Noninfective gastroenteritis and colitis, unspecified (3) Pneumonia due to COVID-19 virus Status: Acute Category: Medical Code(s): U07.1 - COVID-19; J12.82 - Pneumonia due to coronavirus disease 2019 (4) Acute respiratory failure with hypoxemia Status: Acute Category: Medical Code(s): J96.01 - Acute respiratory failure with hypoxia The patient's infection will respond to the chosen ABx?: Yes Is the patient receiving the right drug, dose, and route?: Yes Could a more targeted ABx be ordered?: No (COVID PNEUMONIA)
--- NOTE | 2020-10-05 18:54 | PC.NURSE ---
pt has rested t/o shift. vapotherm increased to 40liters r/t desaturation with slow recovery. pt attempted to sit up in chair this morning and did not tolerate well. pt has remained prone majority of the shift since attempting to sit in chair. O2 95% at this time. all other vitals WNL t/o shift. pt voids per BSC with standby assistance. josé antonio luo on BLE. Lung sounds diminished throughout.
[2020-10-06] VITALS (9 sets, daily range): BP systolic 118–161; BP diastolic 40–72; PULSE 53–88; RESP 20–22; TEMP 36.5–37; O2SAT 91–98; BMI 28.2
--- NOTE | 2020-10-06 06:53 | PC.NURSE ---
Patient voiced no concerns this shift. No s/s of acute distress noted, call light within reach, bed at lowest level for safety, will continue to monitor.
[2020-10-06 07:52] LABS: Basophils % 0.2 % (0.1-2.0); Chloride 107 mmol/L (98-107); Hematocrit 41.8 % (37.0-47.0); Hemoglobin 14.6 g/dL (12.2-16.2); Lymphocytes # 0.7 K/mm3 (0.7-4.5); Lymphocytes % 5.3 % (10-50); Mean Corpuscular HGB Conc 35.1 g/dL (31.8-35.4); Mean Corpuscular Hemoglobin 29.8 pg (27.0-31.2); Mean Corpuscular Volume 85.1 fl (81-99); Mean Platelet Volume 7.8 fl (7.4-10.4); Monocytes # 0.6 K/mm3 (0.1-1.0); Monocytes % 4.6 % (1.7-9.3); Neutrophils # 11.2 K/mm3 (1.8-7.8); Neutrophils % 89.9 % (37.0-80.0); Platelet Count 432 K/mm3 (142-424); Potassium 4.2 mmoL/L (3.5-5.1); Red Blood Count 4.91 M/mm3 (4.20-5.40); Red Cell Distribution Width 13.7 % (11.5-17.5); Sodium 139 mmol/L (136-145); White Blood Count 12.5 K/mm3 (4.8-10.8)
[2020-10-06 07:55] LABS: Anion Gap 10.2 mEq/L (5-15); Blood Urea Nitrogen 18 mg/dl (7-17); Calcium 8.4 mg/dl (8.4-10.2); Carbon Dioxide 26 mmol/L (22.0-30.0); Creatinine Clearance Estimated 60 mL/min (50-200); Estimated Glomerular Filt Rate 98 ml/min (>60); GFR (African American) 118 ML/MIN (>60); Glucose 142 mg/dl (74-100); MANUAL DIFFERENTIAL MANUAL DIFFERENTIAL (MANUAL DIFF)
[2020-10-06 08:24] LABS: Lymphocytes % 8 % (10-50); Monocytes % 4 % (2-9); Neutrophils % 88 % (42-76); Platelet Estimate Normal; RBC Morphology Normal; Total Cells Counted 100
--- NOTE | 2020-10-06 13:09 | HMH.ACPN2 ---
Internal Medicine - PN: Subj *Date: 10/06/20 *Time: 13:09 Interval history: not much interval change still vapotherm at 100pct/40 lpm anxious to go home Exam Vital signs and Labs for Last 24 Hours: Temp Pulse Resp BP Pulse Ox 98.5 F 53 L 22 118/40 L 93 L 10/06/20 11:21 10/06/20 11:21 10/06/20 11:21 10/06/20 11:21 10/06/20 11:21 Laboratory Results - last 24 hr 10/06/20 07:35: WBC 12.5 H D, RBC 4.91, Hgb 14.6, Hct 41.8, MCV 85.1, MCH 29.8, MCHC 35.1, RDW 13.7, Plt Count 432 H, MPV 7.8, Neut % (Auto) 89.9 H, Lymph % (Auto) 5.3 L, [place] % (Auto) 4.6, Eos % (Auto) 0.0 L, Baso % (Auto) 0.2, Neut # (Auto) 11.2 H, Lymph # (Auto) 0.7, [place] # (Auto) 0.6, Eos # (Auto) 0.0, Baso # (Auto) 0.0, Total Counted 100, Neutrophils % (Manual) 88 H, Lymphocytes % (Manual) 8 L, Monocytes % (Manual) 4, Platelet Estimate Normal, RBC Morphology Normal 10/06/20 07:35: Sodium 139, Potassium 4.2, Chloride 107, Carbon Dioxide 26, Anion Gap 10.2, BUN 18 H, Creatinine 0.60, Estimated Creat Clear 60, Estimated GFR 98, Est GFR ( Amer) 118, Glucose 142 H, Calcium 8.4 I & O for Last 24 hours: Intake & Output 10/03/20 10/04/20 10/05/20 10/06/20 23:59 23:59 23:59 23:59 Intake Total 240 / 240 1300 / 1300 120 / 120 600 / 600 Output Total 150 / 150 Balance 240 / 90 1150 / 1150 120 / 120 600 / 600 Weight 176 lb 8.915 oz 176 lb 8.739 oz 169 lb 7 oz 169 lb 6.169 oz Microbiology Reports for the Last 24 Hours: Microbiology 10/05/20 22:10 Sputum - Expectorated Sputum Gram Stain - Final 09/30/20 15:35 Blood Blood Culture - Final NO GROWTH AFTER 5 DAYS 10/03/20 09:43 Blood Blood Culture - Preliminary NO GROWTH AFTER 48 HOURS 10/03/20 09:50 Blood Blood Culture - Preliminary NO GROWTH AFTER 48 HOURS - Constitutional no acute distress, obese, chronically ill appearing, disheveled - *Routine HEENT Exam Head: Present: normocephalic Eye: Present: EOMI, PERRL ENT: Present: mucous membranes moist - *Routine Neck Exam Present: supple. Absent: lymphadenopathy - *Routine Respiratory Exam Present: crackles. Absent: accessory muscle use, respiratory distress, wheezes Comments: left base/midfield - *Routine Cardiovascular Exam Present: RRR - *Routine Abdominal Exam Present: soft, normoactive bowel sounds. Absent: tenderness - *Routine Extremities Exam Absent: cyanosis, clubbing, edema - *Routine Skin Exam Present: warm. Absent: rash - *Routine Neurological Exam Present: alert, oriented X3 Assessment and Plan (1) Acute hypoxemic respiratory failure due to COVID-19 Status: Acute Category: Medical Code(s): U07.1 - COVID-19; J96.01 - Acute respiratory failure with hypoxia (2) Gastroenteritis Status: Acute Category: Medical Code(s): K52.9 - Noninfective gastroenteritis and colitis, unspecified (3) Pneumonia due to COVID-19 virus Status: Acute Category: Medical Code(s): U07.1 - COVID-19; J12.82 - Pneumonia due to coronavirus disease 2019 (4) Acute respiratory failure with hypoxemia Status: Acute Category: Medical Code(s): J96.01 - Acute respiratory failure with hypoxia - Assessment and plan all Dx Assessment and Plan for all problems:: will look at cxr today d/c soon is less likely due to vapotherm requirements pulmonary actively following, will await recommendations from the service in the morning
--- NOTE | 2020-10-06 18:10 | PC.NURSE ---
pt AxOx4, states that she feels better, has been in chair part of the day, has laid prone in bed and has sat on side of bed, remains on vapotherm with sats 90-92%, lungs diminished to auscultation
[2020-10-07] VITALS (9 sets, daily range): BP systolic 137–173; BP diastolic 51–68; PULSE 58–85; RESP 18–21; TEMP 36.5–36.9; O2SAT 84–96; BMI 29.5
--- NOTE | 2020-10-07 06:00 | XR_ITS ---
PROCEDURE INFORMATION: Exam: XR Chest Exam date and time: 10/07/2020 6:00 AM Age: 75 years old Clinical indication: Condition or disease; Other: Covid 19 respiratory failure; Additional info: Covid pneumonia TECHNIQUE: Imaging protocol: XR of the chest. Views: 1 view. COMPARISON: CR XR CHEST PORTABLE 09/30/2020 5:27 PM FINDINGS: Lungs: Worsening bilateral lung opacities compatible with infiltrates, larger on the left. Pleural spaces: Unremarkable. No pleural effusion. No pneumothorax. Heart/Mediastinum: Unremarkable. No cardiomegaly. Bones/joints: Unremarkable. IMPRESSION: Worsening bilateral lung opacities compatible with infiltrates, larger on the left.
[2020-10-07 06:02] LABS: Basophils % 0.3 % (0.1-2.0); Hematocrit 39.4 % (37.0-47.0); Hemoglobin 13.6 g/dL (12.2-16.2); Lymphocytes # 0.5 K/mm3 (0.7-4.5); Lymphocytes % 4.2 % (10-50); Mean Corpuscular HGB Conc 34.4 g/dL (31.8-35.4); Mean Corpuscular Hemoglobin 29.5 pg (27.0-31.2); Mean Corpuscular Volume 85.7 fl (81-99); Mean Platelet Volume 7.2 fl (7.4-10.4); Monocytes # 0.6 K/mm3 (0.1-1.0); Monocytes % 5.1 % (1.7-9.3); Neutrophils # 10.9 K/mm3 (1.8-7.8); Neutrophils % 90.4 % (37.0-80.0); Platelet Count 390 K/mm3 (142-424); Red Cell Distribution Width 13.6 % (11.5-17.5); White Blood Count 12.1 K/mm3 (4.8-10.8)
[2020-10-07 06:34] LABS: Chloride 107 mmol/L (98-107); Potassium 4.4 mmoL/L (3.5-5.1); Sodium 139 mmol/L (136-145)
[2020-10-07 06:37] LABS: Anion Gap 10.4 mEq/L (5-15); Blood Urea Nitrogen 17 mg/dl (7-17); Carbon Dioxide 26 mmol/L (22.0-30.0); Creatinine Clearance Estimated 63 mL/min (50-200); Estimated Glomerular Filt Rate 98 ml/min (>60); GFR (African American) 118 ML/MIN (>60); Glucose 148 mg/dl (74-100)
[2020-10-07 06:39] LABS: MANUAL DIFFERENTIAL MANUAL DIFFERENTIAL (MANUAL DIFF)
--- NOTE | 2020-10-07 07:04 | PC.NURSE ---
No s/s of acute distress noted this shift. Bed at lowest level for safety, call light within reach; will continue to monitor.
[2020-10-07 07:38] LABS: Lymphocytes % 9 % (10-50); Monocytes % 1 % (2-9); Neutrophils % 88 % (42-76); Platelet Estimate Normal; RBC Morphology Normal; Total Cells Counted 100
--- NOTE | 2020-10-07 10:25 | HMH.PULMPN ---
Internal Medicine - PN: Subj *Date: 10/07/20 *Time: 10:25 Assessment and Plan (1) Acute hypoxemic respiratory failure due to COVID-19 Status: Acute Category: Medical Code(s): U07.1 - COVID-19; J96.01 - Acute respiratory failure with hypoxia (2) Gastroenteritis Status: Acute Category: Medical Code(s): K52.9 - Noninfective gastroenteritis and colitis, unspecified (3) Pneumonia due to COVID-19 virus Status: Acute Category: Medical Code(s): U07.1 - COVID-19; J12.82 - Pneumonia due to coronavirus disease 2019 (4) Acute respiratory failure with hypoxemia Status: Acute Category: Medical Code(s): J96.01 - Acute respiratory failure with hypoxia
[2020-10-07 11:16] LABS: C-Reactive Protein 3.6 mg/L (0-4); D-Dimer 0.67 ug/mL (0.0-0.5)
[2020-10-07 11:46] LABS: Ferritin 317 ng/ml (11.1-264)
--- NOTE | 2020-10-07 12:22 | HMH.PULMPN ---
Internal Medicine - PN: Subj *Date: 10/07/20 *Time: 12:22 Interval history: No acute resp events pver the weekend. She denies nay new respiratory complaints Exam - Constitutional Constitutional:: Present: no acute distress. Absent: comfortable - HENMT Exam HENMT: Present: normocephalic, atraumatic - Eye Exam Eyes:: Present: normal appearance both eyes and related structures - Neck Exam Neck:: Present: normal visual inspection - Respiratory Exam Respiratory:: Present: able to speak in complete sentences, crackles. Absent: normal respiratory effort - Cardiovascular Exam Cardiac:: Present: S1, S2 - GI Exam GI:: Present: soft - Skin Exam Skin: Present: warm, no rash - Neurological Exam Neurological: Present: alert, awake - Extremities Exam Extremities: Present: no cyanosis, no clubbing, edema - Psychiatric Exam Psychiatric: Present: normal affect Assessment and Plan (1) Acute hypoxemic respiratory failure due to COVID-19 Status: Acute Category: Medical Code(s): U07.1 - COVID-19; J96.01 - Acute respiratory failure with hypoxia (2) Gastroenteritis Status: Acute Category: Medical Code(s): K52.9 - Noninfective gastroenteritis and colitis, unspecified (3) Pneumonia due to COVID-19 virus Status: Acute Category: Medical Code(s): U07.1 - COVID-19; J12.82 - Pneumonia due to coronavirus disease 2019 (4) Acute respiratory failure with hypoxemia Status: Acute Category: Medical Code(s): J96.01 - Acute respiratory failure with hypoxia - Assessment and plan all Dx Assessment and Plan for all problems:: #COVID-19 pneumonia: #Acute hypoxic respiratory failure: 75-year-old no prior respiratory complaint no significant smoking history present with abdominal complaints found to be COVID-19 positive. Patient needing increasing oxygen requirement and currently high flow nasal cannula. CTA from admission reviewed, did not show any evidence of pulmonary however showed bilateral diffuse patchy and groundglass opacities. Lymphopenia noted. Interval update: Inflammatory markers including CRP, ferritin improving from admisison. CRP elevated and now normalized. Ferritin decreasing Blood cultures negative. Patient symptoms status did not improve , continues to require high oxygen supplementation Plan: -Lasix 40 mg IV once. -Incentive spirometry and chest percussion therapy -Combivent inhaler every 6 hours as needed -COntinue remdesivir. Decrease dexamethasone to 6 mg daily -Discontinue azithromycin. Continue with the Cefepime for a total of 7 days. Repeat Blood cultures no growth on antibiotics -Continue awake proning protocol - Continue oxygen supplementation currently on high flow nasal cannula, -Continue chemical DVT prophylaxis. #Thank you for involving pulmonary in this patient care. We'll continue to follow.
--- NOTE | 2020-10-07 13:05 | HMH.ACPN2 ---
Internal Medicine - PN: Subj *Date: 10/07/20 *Time: 09:10 Interval history: pt requiring more o2 Exam Vital signs and Labs for Last 24 Hours: Temp Pulse Resp BP Pulse Ox 98.5 F 68 20 148/67 H 93 L 10/07/20 11:40 10/07/20 11:40 10/07/20 11:40 10/07/20 11:40 10/07/20 11:40 Laboratory Results - last 24 hr 10/07/20 05:44: WBC 12.1 H, RBC 4.60, Hgb 13.6, Hct 39.4, MCV 85.7, MCH 29.5, MCHC 34.4, RDW 13.6, Plt Count 390, MPV 7.2 L, Neut % (Auto) 90.4 H, Lymph % (Auto) 4.2 L, [place] % (Auto) 5.1, Eos % (Auto) 0.0 L, Baso % (Auto) 0.3, Neut # (Auto) 10.9 H, Lymph # (Auto) 0.5 L, [place] # (Auto) 0.6, Eos # (Auto) 0.0, Baso # (Auto) 0.0, Total Counted 100, Neutrophils % (Manual) 88 H, Band Neutrophils % 2.0, Lymphocytes % (Manual) 9 L, Monocytes % (Manual) 1 L, Platelet Estimate Normal, RBC Morphology Normal 10/07/20 05:44: Sodium 139, Potassium 4.4, Chloride 107, Carbon Dioxide 26, Anion Gap 10.4, BUN 17, Creatinine 0.60, Estimated Creat Clear 63, Estimated GFR 98, Est GFR ( Amer) 118, Glucose 148 H, Calcium 8.0 L 10/07/20 10:52: D-Dimer 0.67 H 10/07/20 10:52: Ferritin 317 H D, C-Reactive Protein 3.6 I & O for Last 24 hours: Intake & Output 10/05/20 10/06/20 10/07/20 10/08/20 11:59 11:59 11:59 11:59 Intake Total 1180 / 1180 360 / 360 2420 / 2420 Output Total 1500 / 1500 Balance 1180 / 1180 360 / 360 920 / 920 Weight 169 lb 7 oz 169 lb 6.169 oz 177 lb Microbiology Reports for the Last 24 Hours: Microbiology 10/05/20 22:10 Sputum - Expectorated Sputum Gram Stain - Final 10/05/20 22:10 Sputum - Expectorated Sputum Sputum Culture - Preliminary - Constitutional mild distress - *Routine HEENT Exam Head: Present: normocephalic Eye: Present: PERRL ENT: Present: mucous membranes moist - *Routine Neck Exam Present: supple. Absent: lymphadenopathy - *Routine Respiratory Exam Present: decreased breath sounds, rhonchi, wheezes - *Routine Cardiovascular Exam Present: RRR - *Routine Abdominal Exam Present: soft, normoactive bowel sounds. Absent: tenderness - *Routine Extremities Exam Present: normal capillary refill. Absent: cyanosis, clubbing, edema - *Routine Skin Exam Present: warm. Absent: rash - *Routine Neurological Exam Present: alert, oriented X3 - Routine Psychiatric Exam Present: normal affect Assessment and Plan (1) Acute hypoxemic respiratory failure due to COVID-19 Status: Acute Category: Medical Code(s): U07.1 - COVID-19; J96.01 - Acute respiratory failure with hypoxia (2) Gastroenteritis Status: Acute Category: Medical Code(s): K52.9 - Noninfective gastroenteritis and colitis, unspecified (3) Pneumonia due to COVID-19 virus Status: Acute Category: Medical Code(s): U07.1 - COVID-19; J12.82 - Pneumonia due to coronavirus disease 2019 (4) Acute respiratory failure with hypoxemia Status: Acute Category: Medical Code(s): J96.01 - Acute respiratory failure with hypoxia - Assessment and plan all Dx Assessment and Plan for all problems:: rounded with dr mittal all orders per dr mittal pulm consult chest xray- worsening
--- NOTE | 2020-10-07 17:49 | PC.NURSE ---
PT IS SITTING UP IN THE CHAIR. NO COMPLAINTS OF DISCOMFORT. O2 SATURATION HAS MAINTAINED 88-92% ON VAPOTHERM. EARLIER THIS AM PT HAD TO HAVE THE NON REBREATHER WITH VAPOTHERM FOR A COUPLE OF HOURS. VAPOTHERM SETTINGS AT 40L WITH 90% FIO2 AT THIS TIME. PT IS EATING AND DRINKING FAIR. LUNG SOUNDS DIMINISHED WITH COARSE CRACKLES (BILATERAL BASES) ABDOMEN SOFT/NON TENDER WITH ACTIVE BOWEL SOUNDS. TEDS NOTED TO BLE. WILL CONTINUE TO MONITOR.
[2020-10-08] VITALS (12 sets, daily range): BP systolic 137–154; BP diastolic 48–80; PULSE 60–85; RESP 18–20; TEMP 35.9–37.1; O2SAT 86–93; BMI 29.2
--- NOTE | 2020-10-08 04:15 | PC.NURSE ---
Patient has had an uneventful night; No s/s of acute distress noted, still currently on vapotherm 40% with FiO2 90% sats 88-91%; Call light within reach, bed at lowest level for safety; will continue to monitor.
[2020-10-08 06:21] LABS: Basophils % 0.2 % (0.1-2.0); Eosinophils % 0.1 % (0.1-12.0); Hematocrit 40.4 % (37.0-47.0); Hemoglobin 13.7 g/dL (12.2-16.2); Lymphocytes # 0.6 K/mm3 (0.7-4.5); Lymphocytes % 4.2 % (10-50); Mean Corpuscular HGB Conc 33.9 g/dL (31.8-35.4); Mean Corpuscular Hemoglobin 29.5 pg (27.0-31.2); Mean Corpuscular Volume 86.9 fl (81-99); Mean Platelet Volume 7.6 fl (7.4-10.4); Monocytes # 0.6 K/mm3 (0.1-1.0); Monocytes % 4.3 % (1.7-9.3); Neutrophils # 12.5 K/mm3 (1.8-7.8); Neutrophils % 91.2 % (37.0-80.0); Platelet Count 404 K/mm3 (142-424); Red Blood Count 4.64 M/mm3 (4.20-5.40); Red Cell Distribution Width 13.9 % (11.5-17.5); White Blood Count 13.7 K/mm3 (4.8-10.8)
[2020-10-08 06:22] LABS: Chloride 104 mmol/L (98-107)
[2020-10-08 06:23] LABS: Sodium 138 mmol/L (136-145)
[2020-10-08 06:26] LABS: Blood Urea Nitrogen 20 mg/dl (7-17); Calcium 8.1 mg/dl (8.4-10.2); Carbon Dioxide 28 mmol/L (22.0-30.0); Creatinine Clearance Estimated 63 mL/min (50-200); Estimated Glomerular Filt Rate 98 ml/min (>60); GFR (African American) 118 ML/MIN (>60); Glucose 154 mg/dl (74-100)
[2020-10-08 06:46] LABS: MANUAL DIFFERENTIAL MANUAL DIFFERENTIAL (MANUAL DIFF)
[2020-10-08 08:56] LABS: Lymphocytes % 5 % (10-50); Monocytes % 4 % (2-9); Neutrophils % 91 % (42-76); Platelet Estimate Slight Increase; RBC Morphology Normal; Total Cells Counted 100
--- NOTE | 2020-10-08 10:26 | P.PN_ITS ---
Internal Medicine - PN: Subj *Date: 10/08/20 *Time: 10:26 Interval history: No acute respiratory events overnight. Patient continues to remain on high flow nasal cannula. Exam - Constitutional Constitutional:: Present: comfortable - HENMT Exam HENMT: Present: normocephalic, atraumatic - Eye Exam Eyes:: Present: normal appearance both eyes and related structures - Neck Exam Neck:: Present: normal visual inspection, thyroid normal - Respiratory Exam Respiratory:: Present: able to speak in complete sentences, respiratory distress, decreased breath sounds, crackles. Absent: wheezing - Cardiovascular Exam Cardiac:: Present: S1, S2 - GI Exam GI:: Present: soft, no hepatosplenomegaly - Skin Exam Skin: Present: warm, no rash, dry - Neurological Exam Neurological: Present: alert, awake, normal cognition - Extremities Exam Extremities: Present: no cyanosis, no clubbing, edema - Psychiatric Exam Psychiatric: Present: normal affect Assessment and Plan (1) Acute hypoxemic respiratory failure due to COVID-19 Status: Acute Category: Medical Code(s): U07.1 - COVID-19; J96.01 - Acute respiratory failure with hypoxia (2) Gastroenteritis Status: Acute Category: Medical Code(s): K52.9 - Noninfective gastroenteritis and colitis, unspecified (3) Pneumonia due to COVID-19 virus Status: Acute Category: Medical Code(s): U07.1 - COVID-19; J12.82 - Pneumonia due to coronavirus disease 2019 (4) Acute respiratory failure with hypoxemia Status: Acute Category: Medical Code(s): J96.01 - Acute respiratory failure with hypoxia - Assessment and plan all Dx Assessment and Plan for all problems:: #COVID-19 pneumonia: #Acute hypoxic respiratory failure: 75-year-old no prior respiratory complaint no significant smoking history present with abdominal complaints found to be COVID-19 positive. Patient needin g increasing oxygen requirement and currently high flow nasal cannula. CTA from admission did not show any evidence of pulmonary however showed bilateral diffuse patchy and groundglass opacities. Repeat chest x-ray from 10/07, reviewed, showed worsening left-sided pulmonary infiltrates along with questionable right lower lobe collapse. Bilateral lower extremity edema noted. Patient received 40 mg IV Lasix today we will give another dose of Lasix. Will discontinue maintenance fluids. Worsening neutrophilic predominant leukocytosis noted. Patient continued to have lymphopenia. Repeat blood cultures no growth. Sputum culture from 10/05 normal respiratory luke. Inflammatory markers improving. D-dimer relatively stable. Plan: -Continue [id number] days. -Decrease dexamethasone to 6 mg daily -Discontinue azithromycin. Continue with the Cefepime for a total of 10 days. Repeat Blood cultures no growth on antibiotics -Lasix 40 mg IV once. -Incentive spirometry and chest percussion therapy -Combivent inhaler every 6 hours as needed -Continue awake proning protocol -Continue oxygen supplementation currently on high flow nasal cannula, decreased to 30 L 80% this morning. -Continue chemical DVT prophylaxis. #Thank you for involving pulmonary in this patient care. We'll continue to follow.
--- NOTE | 2020-10-08 12:39 | HMH.ACPN2 ---
Internal Medicine - PN: Subj *Date: 10/08/20 *Time: 19:42 Interval history: 75-year-old female patient sitting up on the side of bed watching TV in no respiratory distress presently. Vapotherm 90% at 40 L and oxygen saturations 91%. Encouraged her to be up in room as much as tolerated. Discussed with patient current oxygenation requirements and inability to leave hospital even with nasal cannula. Explained oxygen requirements are several levels above nasal cannula at present. Discussed with patient's daughter Brenda patient most likely will not be able to attend son's Wednesday and explained current oxygenation status. Daughter voiced understanding Exam Vital signs and Labs for Last 24 Hours: Temp Pulse Resp BP Pulse Ox 98.1 F 64 20 151/72 H 86 L 10/08/20 11:41 10/08/20 11:41 10/08/20 11:41 10/08/20 11:41 10/08/20 11:41 Laboratory Results - last 24 hr 10/08/20 05:43: WBC 13.7 H, RBC 4.64, Hgb 13.7, Hct 40.4, MCV 86.9, MCH 29.5, MCHC 33.9, RDW 13.9, Plt Count 404, MPV 7.6, Neut % (Auto) 91.2 H, Lymph % (Auto) 4.2 L, [place] % (Auto) 4.3, Eos % (Auto) 0.1, Baso % (Auto) 0.2, Neut # (Auto) 12.5 H, Lymph # (Auto) 0.6 L, [place] # (Auto) 0.6, Eos # (Auto) 0.0, Baso # (Auto) 0.0, Total Counted 100, Neutrophils % (Manual) 91 H, Lymphocytes % (Manual) 5 L, Monocytes % (Manual) 4, Platelet Estimate Slight increase, RBC Morphology Normal 10/08/20 05:43: Sodium 138, Potassium 4.0, Chloride 104, Carbon Dioxide 28, Anion Gap 10.0, BUN 20 H, Creatinine 0.60, Estimated Creat Clear 63, Estimated GFR 98, Est GFR ( Amer) 118, Glucose 154 H, Calcium 8.1 L I & O for Last 24 hours: Intake & Output 07/31/21 08/01/21 08/02/21 08/03/21 23:59 23:59 23:59 23:59 Intake Total 120 / 120 1200 / 2500 2300 / 2300 810 / 810 Output Total 1500 / 1500 2600 / 2600 Balance 120 / 120 -300 / 1000 -300 / -300 810 / 810 Weight 169 lb 7 oz 169 lb 6.169 oz 177 lb 175 lb 6 oz Microbiology Reports for the Last 24 Hours: Microbiology 10/03/20 09:50 Blood Blood Culture - Final NO GROWTH AFTER 5 DAYS 10/03/20 09:43 Blood Blood Culture - Final NO GROWTH AFTER 5 DAYS 10/05/20 22:10 Sputum - Expectorated Sputum Gram Stain - Final 10/05/20 22:10 Sputum - Expectorated Sputum Sputum Culture - Final Normal Respiratory Amy - Constitutional no acute distress - *Routine HEENT Exam Head: Present: normocephalic Eye: Present: EOMI ENT: Present: mucous membranes moist - *Routine Neck Exam Present: trachea midline. Absent: tracheal deviation - *Routine Respiratory Exam Present: rales, rhonchi. Absent: accessory muscle use - *Routine Cardiovascular Exam Present: RRR - *Routine Abdominal Exam Present: soft, normoactive bowel sounds, tenderness, firm - *Routine Extremities Exam Present: full ROM, pulses intact. Absent: cyanosis, clubbing, edema, calf tenderness - *Routine Skin Exam Present: intact, dry, warm. Absent: cyanosis, erythema - *Routine Neurological Exam Present: alert, oriented X3. Absent: vision grossly intact, hemineglect - Routine Psychiatric Exam Present: normal affect, normal thought process. Absent: auditory hallucinations, visual hallucinations Assessment and Plan (1) Acute hypoxemic respiratory failure due to COVID-19 Status: Acute Category: Medical Code(s): U07.1 - COVID-19; J96.01 - Acute respiratory failure with hypoxia (2) Gastroenteritis Status: Acute Category: Medical Code(s): K52.9 - Noninfective gastroenteritis and colitis, unspecified (3) Pneumonia due to COVID-19 virus Status: Acute Category: Medical Code(s): U07.1 - COVID-19; J12.82 - Pneumonia due to coronavirus disease 2019 (4) Acute respiratory failure with hypoxemia Status: Acute Category: Medical Code(s): J96.01 - Acute respiratory failure with hypoxia - Assessment and plan all Dx Assessment and Plan for all
--- NOTE | 2020-10-08 17:43 | PC.NURSE ---
PT IS SITTING UP IN THE CHAIR. BATH AND BED CHANGE THIS SHIFT. PT TOLERATED WELL BUT REQUIRED ASSISTANCE DUE TO SOA. O2 SATURATION HAS MAINTAINED 88-92% ON 30 L AND 80% FIO2 VAPOTHERM. LUNG SOUNDS HAVE SCATTERED WHEEZES WITH FINE CRACKLES (BILATERAL BASES). EATING AND DRINKING FAIR. WILL CONTINUE TO MONITOR
[2020-10-09] VITALS (10 sets, daily range): BP systolic 123–151; BP diastolic 47–65; PULSE 66–91; RESP 18–28; TEMP 36.4–36.8; O2SAT 85–95; BMI 29.2
--- NOTE | 2020-10-09 06:28 | PC.NURSE ---
Patient O2 sats dropped to low 80's and respiratory increased vapotherm to 30% with an FiO2 at 100%; patient still having episodes of dropping to mid 80's with movement; respiratory seeing patient now. Call light within reach, bed at lowest level for safety; will continue to monitor.
[2020-10-09 07:21] LABS: Chloride 104 mmol/L (98-107); Potassium 4.2 mmoL/L (3.5-5.1); Sodium 139 mmol/L (136-145)
[2020-10-09 07:23] LABS: Basophils % 0.2 % (0.1-2.0); Eosinophils # 0.2 K/mm3 (0.0-0.4); Eosinophils % 1.1 % (0.1-12.0); Hematocrit 41.3 % (37.0-47.0); Hemoglobin 14.2 g/dL (12.2-16.2); Lymphocytes # 0.7 K/mm3 (0.7-4.5); Lymphocytes % 4.9 % (10-50); Mean Corpuscular HGB Conc 34.4 g/dL (31.8-35.4); Mean Corpuscular Hemoglobin 29.9 pg (27.0-31.2); Mean Platelet Volume 7.3 fl (7.4-10.4); Monocytes # 0.6 K/mm3 (0.1-1.0); Monocytes % 3.9 % (1.7-9.3); Neutrophils # 13.2 K/mm3 (1.8-7.8); Neutrophils % 89.9 % (37.0-80.0); Platelet Count 414 K/mm3 (142-424); Red Blood Count 4.75 M/mm3 (4.20-5.40); Red Cell Distribution Width 13.7 % (11.5-17.5); White Blood Count 14.7 K/mm3 (4.8-10.8)
[2020-10-09 07:24] LABS: Anion Gap 8.2 mEq/L (5-15); Blood Urea Nitrogen 21 mg/dl (7-17); Calcium 8.4 mg/dl (8.4-10.2); Carbon Dioxide 31 mmol/L (22.0-30.0); Creatinine Clearance Estimated 62 mL/min (50-200); Estimated Glomerular Filt Rate 82 ml/min (>60); GFR (African American) 99 ML/MIN (>60); Glucose 104 mg/dl (74-100)
[2020-10-09 07:26] LABS: MANUAL DIFFERENTIAL MANUAL DIFFERENTIAL (MANUAL DIFF)
[2020-10-09 08:11] LABS: Alanine Aminotransferase 37 U/L (12-78); Alkaline Phosphatase 76 U/L (38-126); Aspartate Amino Transferase 39 U/L (14-36); Bilirubin,Direct 0.5 mg/dl (0.0-0.4); Bilirubin,Indirect 0.2 mg/dL (0.0-0.9); Bilirubin,Total 0.7 mg/dl (0.2-1.3); Bilirubin,Unconjugated 0.2 mg/dL (0.0-1.1); Total Protein,Serum 5.1 g/dl (6.3-8.2)
[2020-10-09 08:13] LABS: Lymphocytes % 5 % (10-50); Monocytes % 8 % (2-9); Neutrophils % 85 % (42-76); Nucleated Red Blood Cells 1; Platelet Estimate Normal; RBC Morphology Normal; Total Cells Counted 100
--- NOTE | 2020-10-09 09:17 | XR_ITS ---
PROCEDURE: XR CHEST PORTABLE CLINICAL HISTORY: Pneumonia COMPARISON: CR XR CHEST PORTABLE from 08/01/2020 CR XR CHEST PORTABLE from 09/30/[address] ANGIO CHEST PE PROTOCOL from 09/30/2020 CR XR CHEST PORTABLE from 10/07/2020 FINDINGS: There is diffuse bilateral lung opacification which has progressed on the left and developed on the right compared to the previous exam consistent with diffuse bilateral pneumonia. The apices are spared. Cardiomegaly. Pulmonary vessels are not delineated due to the overlying alveolar opacification. No acute bony abnormalities. IMPRESSION: Worsening diffuse bilateral pneumonia Dictated by: Boone Casarez MD 10/09/2020 11:34 Boone Casarez MD in [facility] 10/09/2020 11:34
--- NOTE | 2020-10-09 10:20 | HMH.PULMPN ---
Internal Medicine - PN: Subj *Date: 10/09/20 *Time: 10:20 Interval history: No acute respiratory events overnight. Exam - Constitutional Constitutional:: Present: no acute distress, comfortable - HENMT Exam HENMT: Present: normocephalic, atraumatic - Eye Exam Eyes:: Present: normal appearance both eyes and related structures - Neck Exam Neck:: Present: normal visual inspection - Respiratory Exam Respiratory:: Present: able to speak in complete sentences, respiratory distress, crackles - Cardiovascular Exam Cardiac:: Present: S1, S2 - GI Exam GI:: Present: soft - Skin Exam Skin: Present: warm, no rash - Neurological Exam Neurological: Present: alert, awake, normal cognition - Extremities Exam Extremities: Present: no cyanosis, no clubbing, edema - Psychiatric Exam Psychiatric: Present: normal affect Assessment and Plan (1) Acute hypoxemic respiratory failure due to COVID-19 Status: Acute Category: Medical Code(s): U07.1 - COVID-19; J96.01 - Acute respiratory failure with hypoxia (2) Gastroenteritis Status: Acute Category: Medical Code(s): K52.9 - Noninfective gastroenteritis and colitis, unspecified (3) Pneumonia due to COVID-19 virus Status: Acute Category: Medical Code(s): U07.1 - COVID-19; J12.82 - Pneumonia due to coronavirus disease 2019 (4) Acute respiratory failure with hypoxemia Status: Acute Category: Medical Code(s): J96.01 - Acute respiratory failure with hypoxia - Assessment and plan all Dx Assessment and Plan for all problems:: #COVID-19 pneumonia: #Acute hypoxic respiratory failure: 75-year-old no prior respiratory complaint no significant smoking history present with abdominal complaints found to be COVID-19 positive. Patient needing increasing oxygen requirement and currently high flow nasal cannula. CTA from admission did not show any evidence of pulmonary however showed bilateral diffuse patchy and groundglass opacities. Repeat chest x-ray from 10/07, reviewed, showed worsening left-sided pulmonary infiltrates along with questionable right lower lobe collapse. Bilateral lower extremity edema noted. Patient received 40 mg IV Lasix today we will give another dose of Lasix. Will discontinue maintenance fluids. Worsening neutrophilic predominant leukocytosis noted. Patient continued to have lymphopenia. Repeat blood cultures no growth. Sputum culture from 10/05 normal respiratory luke. Inflammatory markers improving. D-dimer relatively stable. Interval update: Patient respiratory rate remained stable and critical on high flow nasal cannula currently on 40 L 100% saturating 88 to 90%. Leukocytosis worsening. We will follow repeat chest x-ray repeat sputum cultures. Continue cefepime until then. Patient appeared to be not compliant with the proning protocol we will document the timings of the proning protocol to make sure patient will be proned for at least 12 hours in 24 hours. We will also schedule chest percussion therapy at least 2-3 times a day. Plan: - F/U CXR and repeat sputum cultures -Continue awake proning protocol for atleast 12 hrs / 24 hrs -Chest percussion therapy q8-12 hrs -Lasix 60 mg IV BID today -Continue [id number] days total. -Dexamethasone to 6 mg daily x 10 days total Continue with the Cefepime for a total of 10 days. Repeat Blood cultures no growth on antibiotics. -Incentive spirometry -Combivent inhaler every 6 hours as needed -Continue oxygen supplementation currently on high flow nasal cannula -Continue chemical DVT prophylaxis. #Thank you for involving pulmonary in this patient care. We'll continue to follow.
--- NOTE | 2020-10-09 11:18 | PC.NURSE ---
Addendum entered by Franny Leiva RN 10/09/20 17:58: 1630-Pt sitting on side of bed for supper 1730- pt lying prone @ this time Addendum entered by Franny Leiva RN 10/09/20 14:05: 1200-Pt sitting on side of the bed at this time for lunch 1400-Pt lying prone at this time Original Note: 1115-pt lying prone @ this time
--- NOTE | 2020-10-09 17:15 | P.PN_ITS ---
Internal Medicine - PN: Subj *Date: 10/09/20 *Time: 09:15 Interval history: pt sitting on side of bed states she is feeling better still soa and needing o2 Exam Vital signs and Labs for Last 24 Hours: Temp Pulse Resp BP Pulse Ox 97.6 F 71 22 123/50 L 95 10/09/20 16:00 10/09/20 16:00 10/09/20 16:00 10/09/20 16:00 10/09/20 16:00 Laboratory Results - last 24 hr 10/09/20 06:53: WBC 14.7 H, RBC 4.75, Hgb 14.2, Hct 41.3, MCV 87.0, MCH 29.9, MCHC 34.4, RDW 13.7, Plt Count 414, MPV 7.3 L, Neut % (Auto) 89.9 H, Lymph % (Auto) 4.9 L, [place] % (Auto) 3.9, Eos % (Auto) 1.1, Baso % (Auto) 0.2, Neut # (Auto) 13.2 H, Lymph # (Auto) 0.7, [place] # (Auto) 0.6, Eos # (Auto) 0.2, Baso # (Auto) 0.0, Total Counted 100, Neutrophils % (Manual) 85 H, Band Neutrophils % 2.0, Lymphocytes % (Manual) 5 L, Monocytes % (Manual) 8, Nucleated RBCs 1, Platelet Estimate Normal, RBC Morphology Normal 10/09/20 06:53: Sodium 139, Potassium 4.2, Chloride 104, Carbon Dioxide 31 H, Anion Gap 8.2, BUN 21 H, Creatinine 0.70, Estimated Creat Clear 62, Estimated GFR 82, Est GFR ( Amer) 99, Glucose 104 H, Calcium 8.4 10/09/20 06:53: Total Bilirubin 0.7, Direct Bilirubin 0.5 H, Conjugated Bilirubin 0.0, Indirect Bilirubin 0.2, Unconjugated Bilirubin 0.2, AST 39 H, ALT 37, Alkaline Phosphatase 76, Total Protein 5.1 L, Albumin 3.0 L I & O for Last 24 hours: Intake & Output 10/07/20 10/08/20 10/09/20 10/10/20 11:59 11:59 11:59 11:59 Intake Total 2420 / 2420 1530 / 1530 720 / 720 240 / 240 Output Total 1500 / 1500 2600 / 2600 Balance 920 / 920 -1070 / -1070 720 / 720 240 / 240 Weight 177 lb 175 lb 6 oz 175 lb 9 oz Microbiology Reports for the Last 24 Hours: Microbiology 10/09/20 11:35 Sputum - Expectorated Sputum Gram Stain - Final - Constitutional no acute distress - *Routine HEENT Exam Head: Present: normocephalic Eye: Present: PERRL ENT: Present: mucous membranes moist - *Routine Neck Exam Present: supple. Absent: lymphadenopathy - *Routine Respiratory Exam Present: decreased breath sounds, rhonchi, wheezes Comments: on vapertherm at 40% - *Routine Cardiovascular Exam Present: RRR - *Routine Abdominal Exam Present: soft, normoactive bowel sounds. Absent: tenderness - *Routine Extremities Exam Absent: cyanosis, clubbing, edema - *Routine Skin Exam Present: warm. Absent: rash - *Routine Neurological Exam Present: alert, oriented X3 Assessment and Plan (1) Acute hypoxemic respiratory failure due to COVID-19 Status: Acute Category: Medical Code(s): U07.1 - COVID-19; J96.01 - Acute respiratory failure with hypoxia (2) Gastroenteritis Status: Acute Category: Medical Code(s): K52.9 - Noninfective gastroenteritis and colitis, unspecified (3) Pneumonia due to COVID-19 virus Status: Acute Category: Medical Code(s): U07.1 - COVID-19; J12.82 - Pneumonia due to coronavirus disease 2019 (4) Acute respiratory failure with hypoxemia Status: Acute Category: Medical Code(s): J96.01 - Acute respiratory failure with hypoxia - Assessment and plan all Dx Assessment and Plan for all problems:: rounded with dr santiago all orders per dr santiago continue treatment continue to follow with pulm
[2020-10-10] VITALS (7 sets, daily range): BP systolic 130–156; BP diastolic 50–77; PULSE 68–81; RESP 16–26; TEMP 36.4–36.8; O2SAT 85–95; BMI 28.5
--- NOTE | 2020-10-10 02:00 | PC.NURSE ---
patient lay prone position [phone]
--- NOTE | 2020-10-10 05:27 | PC.NURSE ---
Patient has been in prone position from [phone]. Has desat to mid 80's with movement. Call light in reach, bed at lowest level for safety; will continue to monitor.
[2020-10-10 06:03] LABS: Chloride 101 mmol/L (98-107); Sodium 135 mmol/L (136-145)
[2020-10-10 06:04] LABS: Potassium 3.6 mmoL/L (3.5-5.1)
[2020-10-10 06:05] LABS: Basophils % 0.2 % (0.1-2.0); Eosinophils # 0.3 K/mm3 (0.0-0.4); Eosinophils % 2.1 % (0.1-12.0); Hematocrit 40.3 % (37.0-47.0); Lymphocytes # 0.6 K/mm3 (0.7-4.5); Lymphocytes % 4.4 % (10-50); Mean Corpuscular HGB Conc 34.6 g/dL (31.8-35.4); Mean Corpuscular Hemoglobin 29.7 pg (27.0-31.2); Mean Corpuscular Volume 85.7 fl (81-99); Mean Platelet Volume 7.8 fl (7.4-10.4); Monocytes # 0.4 K/mm3 (0.1-1.0); Monocytes % 3.1 % (1.7-9.3); Neutrophils # 11.2 K/mm3 (1.8-7.8); Neutrophils % 90.1 % (37.0-80.0); Platelet Count 386 K/mm3 (142-424); Red Blood Count 4.71 M/mm3 (4.20-5.40); Red Cell Distribution Width 14.2 % (11.5-17.5); White Blood Count 12.4 K/mm3 (4.8-10.8)
[2020-10-10 06:06] LABS: Blood Urea Nitrogen 19 mg/dl (7-17); Creatinine Clearance Estimated 61 mL/min (50-200); Estimated Glomerular Filt Rate 98 ml/min (>60); GFR (African American) 118 ML/MIN (>60)
[2020-10-10 06:07] LABS: Anion Gap 8.6 mEq/L (5-15); Calcium 8.1 mg/dl (8.4-10.2); Carbon Dioxide 29 mmol/L (22.0-30.0); Glucose 103 mg/dl (74-100); MANUAL DIFFERENTIAL MANUAL DIFFERENTIAL (MANUAL DIFF)
[2020-10-10 06:10] LABS: Alanine Aminotransferase 43 U/L (12-78); Albumin Level 2.9 g/dl (3.5-5.0); Alkaline Phosphatase 74 U/L (38-126); Aspartate Amino Transferase 41 U/L (14-36); Bilirubin,Direct 0.5 mg/dl (0.0-0.4); Bilirubin,Indirect 0.2 mg/dL (0.0-0.9); Bilirubin,Total 0.7 mg/dl (0.2-1.3); Bilirubin,Unconjugated 0.3 mg/dL (0.0-1.1); Total Protein,Serum 4.9 g/dl (6.3-8.2)
[2020-10-10 06:21] LABS: Eosinophils % 1 % (0-3); Lymphocytes % 4 % (10-50); Monocytes % 1 % (2-9); Neutrophils % 94 % (42-76); Total Cells Counted 100
[2020-10-10 06:22] LABS: Platelet Estimate Normal; Stomatocytes 1+
--- NOTE | 2020-10-10 08:23 | PC.NURSE ---
PT WAS PRONE UPON ENTERING ROOM. ASSISTED BY THIS RN TO SIDE OF BED FOR BFAST
--- NOTE | 2020-10-10 09:02 | HMH.ACPN2 ---
Internal Medicine - PN: Subj *Date: 10/10/20 *Time: 20:35 Interval history: 75-year-old female patient sitting up at bedside Vapotherm 100% at 40 L. She denies any respiratory distress or chest pain during night. She denies any other concerns or needs at present. Exam Vital signs and Labs for Last 24 Hours: Temp Pulse Resp BP Pulse Ox 98.3 F 75 26 H 130/52 L 92 L 10/10/20 04:00 10/10/20 04:00 10/10/20 04:00 10/10/20 04:00 10/10/20 04:00 Laboratory Results - last 24 hr 10/10/20 05:44: WBC 12.4 H, RBC 4.71, Hgb 14.0, Hct 40.3, MCV 85.7, MCH 29.7, MCHC 34.6, RDW 14.2, Plt Count 386, MPV 7.8, Neut % (Auto) 90.1 H, Lymph % (Auto) 4.4 L, [place] % (Auto) 3.1, Eos % (Auto) 2.1, Baso % (Auto) 0.2, Neut # (Auto) 11.2 H, Lymph # (Auto) 0.6 L, [place] # (Auto) 0.4, Eos # (Auto) 0.3, Baso # (Auto) 0.0, Total Counted 100, Neutrophils % (Manual) 94 H, Lymphocytes % (Manual) 4 L, Monocytes % (Manual) 1 L, Eosinophils % (Manual) 1, Platelet Estimate Normal, Stomatocytes 1+ 10/10/20 05:44: Sodium 135 L, Potassium 3.6, Chloride 101, Carbon Dioxide 29, Anion Gap 8.6, BUN 19 H, Creatinine 0.60, Estimated Creat Clear 61, Estimated GFR 98, Est GFR ( Amer) 118, Glucose 103 H, Calcium 8.1 L 10/10/20 05:44: Total Bilirubin 0.7, Direct Bilirubin 0.5 H, Conjugated Bilirubin 0.0, Indirect Bilirubin 0.2, Unconjugated Bilirubin 0.3, AST 41 H, ALT 43, Alkaline Phosphatase 74, Total Protein 4.9 L, Albumin 2.9 L I & O for Last 24 hours: Intake & Output 10/07/20 10/08/20 10/09/20 10/10/20 23:59 23:59 23:59 23:59 Intake Total 2300 / 2300 1410 / 1410 600 / 600 Output Total 2600 / 2600 Balance -300 / -300 1410 / 1410 600 / 600 Weight 177 lb 175 lb 6 oz 175 lb 9 oz 171 lb 8 oz Microbiology Reports for the Last 24 Hours: Microbiology 10/09/20 11:35 Sputum - Expectorated Sputum Gram Stain - Final 10/09/20 11:35 Sputum - Expectorated Sputum Sputum Culture - Preliminary - Constitutional no acute distress - *Routine HEENT Exam Head: Present: normocephalic Eye: Present: EOMI ENT: Present: mucous membranes moist - *Routine Neck Exam Present: trachea midline. Absent: tracheal deviation - *Routine Respiratory Exam Present: decreased breath sounds, crackles - *Routine Cardiovascular Exam Present: RRR - *Routine Abdominal Exam Present: soft, normoactive bowel sounds. Absent: tenderness, guarding - *Routine Extremities Exam Present: full ROM, pulses intact. Absent: cyanosis, clubbing, edema, calf tenderness - *Routine Skin Exam Present: intact, dry, warm. Absent: cyanosis, erythema - *Routine Neurological Exam Present: alert, oriented X3. Absent: motor deficit - Routine Psychiatric Exam Present: normal affect, normal thought process. Absent: paranoid Assessment and Plan (1) Acute hypoxemic respiratory failure due to COVID-19 Status: Acute Category: Medical Code(s): U07.1 - COVID-19; J96.01 - Acute respiratory failure with hypoxia (2) Gastroenteritis Status: Acute Category: Medical Code(s): K52.9 - Noninfective gastroenteritis and colitis, unspecified (3) Pneumonia due to COVID-19 virus Status: Acute Category: Medical Code(s): U07.1 - COVID-19; J12.82 - Pneumonia due to coronavirus disease 2019 (4) Acute respiratory failure with hypoxemia Status: Acute Category: Medical Code(s): J96.01 - Acute respiratory failure with hypoxia - Assessment and plan all Dx Assessment and Plan for all problems:: Rounded with Dr. Trivedi, all orders per Dr. Trivedi: 1. Continue current medical regimen 2. Continue to wean oxygen as tolerated
--- NOTE | 2020-10-10 10:06 | HMH.PULMPN ---
Internal Medicine - PN: Subj *Date: 10/10/20 *Time: 10:06 Interval history: Patient denies any new respiratory complaints. Exam - Constitutional Constitutional:: Present: comfortable - HENMT Exam HENMT: Present: normocephalic, atraumatic - Eye Exam Eyes:: Present: vision change - Neck Exam Neck:: Present: normal visual inspection - Respiratory Exam Respiratory:: Present: able to speak in complete sentences, respiratory distress, crackles. Absent: wheezing - Cardiovascular Exam Cardiac:: Present: S1, S2 - GI Exam GI:: Present: soft, no hepatosplenomegaly - Skin Exam Skin: Present: warm, no rash, dry - Neurological Exam Neurological: Present: alert, normal cognition - Extremities Exam Extremities: Present: no cyanosis, no clubbing, edema Assessment and Plan (1) Acute hypoxemic respiratory failure due to COVID-19 Status: Acute Category: Medical Code(s): U07.1 - COVID-19; J96.01 - Acute respiratory failure with hypoxia (2) Gastroenteritis Status: Acute Category: Medical Code(s): K52.9 - Noninfective gastroenteritis and colitis, unspecified (3) Pneumonia due to COVID-19 virus Status: Acute Category: Medical Code(s): U07.1 - COVID-19; J12.82 - Pneumonia due to coronavirus disease 2019 (4) Acute respiratory failure with hypoxemia Status: Acute Category: Medical Code(s): J96.01 - Acute respiratory failure with hypoxia - Assessment and plan all Dx Assessment and Plan for all problems:: #COVID-19 pneumonia: #Acute hypoxic respiratory failure: 75-year-old no prior respiratory complaint no significant smoking history present with abdominal complaints found to be COVID-19 positive. Patient needing increasing oxygen requirement and currently high flow nasal cannula. CTA from admission did not show any evidence of pulmonary however showed bilateral diffuse patchy and groundglass opacities. Repeat chest x-ray from 10/07, reviewed, showed worsening left-sided pulmonary infiltrates along with questionable right lower lobe collapse. Bilateral lower extremity edema noted. Patient received 40 mg IV Lasix today we will give another dose of Lasix. Will discontinue maintenance fluids. Worsening neutrophilic predominant leukocytosis noted. Patient continued to have lymphopenia. Repeat blood cultures no growth. Sputum culture from 10/05 normal respiratory luke. Inflammatory markers improving. D-dimer relatively stable. Interval update: Patient respiratory study did not show any improvement since yesterday. She this morning saturating 89% despite proning which is worse than prior. Chest x-ray from yesterday showed worsening bilateral pneumonia. Worsening leukocytosis. Sputum cultures from yesterday showing gram-positive cocci in clusters chains along with few gram-negative rods. She continued to receive cefepime. I have extensively discussed with the patient however patient preferred to be in a DNI status. Will initiate BiPAP support today. Patient received 60 mg IV Lasix once yesterday with no adequate urine output. We will add 80 mg IV Lasix once. Strict I's and O's documentation. Plan: -Initiate Advair diskus twice daily scheduled. - Lasix 80mg IV once -Strict I's and O's. -Initiate noninvasive ventilation and BiPAP pressure of 16/8 when patient is not prone and awake. We will continue high flow nasal cannula for the rest of the duration. -Nasal MRSA screen -F/U repeat sputum cultures final result -Continue awake proning protocol for atleast 12 hrs / 24 hrs -Chest percussion therapy q8-12 hrs -Continue [id number] days total. -Dexamethasone to 6 mg daily x 10 days total Continue with the Cefepime for a total of 10 days. Repeat Blood cultures no growth on antibiotics. -Incentive spirometry -Combivent inhaler every 6 hours schedu -Continue oxygen supplementation currently on high flow nasal cannula -Continue chemical DVT prophylaxis. #Thank you for involving pulmonary in this patient
--- NOTE | 2020-10-10 12:41 | PC.NURSE ---
PT HAS BEEN SITTING ON THE SIDE OF THE BED FOR MEALS. SHE HAS REFUSED TO REPOSITION INTO PRONE POSITION SINCE THIS MORNING. SHE WAS EDUCATED ON MEDIAL RATIONALE BUT CONTINUES TO REFUSE.
--- NOTE | 2020-10-10 19:55 | PC.NURSE ---
PT TOLERATED PRONE POSITION FOR 5 TOTAL HOURS TODAY. SHE SAT ON SIDE OF BED FOR MEALS. VAPOTHERM 40LPM @100% AT TIME OF WRITING.
[2020-10-11] VITALS (11 sets, daily range): BP systolic 116–155; BP diastolic 57–78; PULSE 63–86; RESP 16–30; TEMP 36.4–37; O2SAT 85–92; BMI 28.0
[2020-10-11 05:16] LABS: Basophils # 0.1 K/mm3 (0-0.2); Basophils % 0.9 % (0.1-2.0); Eosinophils # 0.3 K/mm3 (0.0-0.4); Eosinophils % 2.2 % (0.1-12.0); Hematocrit 40.1 % (37.0-47.0); Hemoglobin 14.2 g/dL (12.2-16.2); Lymphocytes # 0.5 K/mm3 (0.7-4.5); Lymphocytes % 3.8 % (10-50); Mean Corpuscular HGB Conc 35.5 g/dL (31.8-35.4); Mean Corpuscular Hemoglobin 30.2 pg (27.0-31.2); Mean Corpuscular Volume 85.1 fl (81-99); Mean Platelet Volume 7.5 fl (7.4-10.4); Monocytes # 0.5 K/mm3 (0.1-1.0); Monocytes % 3.7 % (1.7-9.3); Neutrophils # 10.7 K/mm3 (1.8-7.8); Neutrophils % 89.4 % (37.0-80.0); Platelet Count 357 K/mm3 (142-424); Red Blood Count 4.72 M/mm3 (4.20-5.40); Red Cell Distribution Width 14.3 % (11.5-17.5)
[2020-10-11 05:18] LABS: Chloride 98 mmol/L (98-107); Potassium 3.4 mmoL/L (3.5-5.1); Sodium 135 mmol/L (136-145)
[2020-10-11 05:21] LABS: Blood Urea Nitrogen 25 mg/dl (7-17); Creatinine Clearance Estimated 59 mL/min (50-200); Estimated Glomerular Filt Rate 98 ml/min (>60); GFR (African American) 118 ML/MIN (>60); MANUAL DIFFERENTIAL MANUAL DIFFERENTIAL (MANUAL DIFF)
[2020-10-11 05:22] LABS: Anion Gap 7.4 mEq/L (5-15); Carbon Dioxide 33 mmol/L (22.0-30.0); Glucose 98 mg/dl (74-100)
--- NOTE | 2020-10-11 05:23 | PC.NURSE ---
shift summary patient has had very depressed and flat affect throughout shift. speaks minimally when spoken to. breath sounds diminished throughout all melchor. patient has been prone for approximately 3 hrs this shift and on bipap for 6 hrs. sats have ranged anywhere from 89-92%. maxed out on bipap and vapotherm with non rebreather on top of that. heart pattern regular per palpation. voiding clear, yellow urine per bedside commode.
[2020-10-11 05:48] LABS: Eosinophils % 2 % (0-3); Lymphocytes % 4 % (10-50); Neutrophils % 94 % (42-76); Platelet Estimate Normal; Stomatocytes 1+; Total Cells Counted 100
[2020-10-11 09:26] LABS: C-Reactive Protein 6.1 mg/L (0-4)
--- NOTE | 2020-10-11 09:37 | HMH.ACPN2 ---
Internal Medicine - PN: Subj *Date: 10/11/20 *Time: 10:56 Interval history: 75-year-old female patient sitting up in bed resting quietly. She denies any chest pain or respiratory distress during the night. She is currently on Vapotherm 100% at 40 L and oxygen saturation is 88 to 89%, will drop to 84 to 85% while talking. Exam Vital signs and Labs for Last 24 Hours: Temp Pulse Resp BP Pulse Ox 98.1 F 86 24 155/71 H 85 L 10/11/20 08:00 10/11/20 08:00 10/11/20 08:00 10/11/20 08:00 10/11/20 08:00 Laboratory Results - last 24 hr 10/11/20 04:55: WBC 12.0 H, RBC 4.72, Hgb 14.2, Hct 40.1, MCV 85.1, MCH 30.2, MCHC 35.5 H, RDW 14.3, Plt Count 357, MPV 7.5, Neut % (Auto) 89.4 H, Lymph % (Auto) 3.8 L, [place] % (Auto) 3.7, Eos % (Auto) 2.2, Baso % (Auto) 0.9, Neut # (Auto) 10.7 H, Lymph # (Auto) 0.5 L, [place] # (Auto) 0.5, Eos # (Auto) 0.3, Baso # (Auto) 0.1, Total Counted 100, Neutrophils % (Manual) 94 H, Lymphocytes % (Manual) 4 L, Eosinophils % (Manual) 2, Platelet Estimate Normal, Stomatocytes 1+ 10/11/20 04:55: Sodium 135 L, Potassium 3.4 L, Chloride 98, Carbon Dioxide 33 H, Anion Gap 7.4, BUN 25 H D, Creatinine 0.60, Estimated Creat Clear 59, Estimated GFR 98, Est GFR ( Amer) 118, Glucose 98, Calcium 8.0 L I & O for Last 24 hours: Intake & Output 10/08/20 10/09/20 10/10/20 10/11/20 23:59 23:59 23:59 23:59 Intake Total 1410 / 1410 600 / 600 1180 / 1180 200 / 200 Output Total 0 / 0 Balance 1410 / 1410 600 / 600 1180 / 1180 200 / 200 Weight 175 lb 6 oz 175 lb 9 oz 171 lb 8 oz 168 lb Microbiology Reports for the Last 24 Hours: Microbiology 10/09/20 11:35 Sputum - Expectorated Sputum Gram Stain - Final 10/09/20 11:35 Sputum - Expectorated Sputum Sputum Culture - Preliminary Gram Positive Cocci - Constitutional no acute distress - *Routine HEENT Exam Head: Present: normocephalic Eye: Present: EOMI ENT: Present: mucous membranes moist - *Routine Neck Exam Present: trachea midline. Absent: tenderness, tracheal deviation - *Routine Respiratory Exam Present: crackles. Absent: accessory muscle use - *Routine Cardiovascular Exam Present: RRR - *Routine Abdominal Exam Present: soft, normoactive bowel sounds. Absent: tenderness, firm - *Routine Extremities Exam Present: full ROM, pulses intact. Absent: cyanosis, clubbing, edema, calf tenderness - *Routine Skin Exam Present: intact, dry, warm. Absent: cyanosis, erythema - *Routine Neurological Exam Present: alert, oriented X3, CN II-XII intact. Absent: motor deficit, pronator drift - Routine Psychiatric Exam Present: normal affect, normal thought process. Absent: homicidal ideation, auditory hallucinations Assessment and Plan (1) Acute hypoxemic respiratory failure due to COVID-19 Status: Acute Category: Medical Code(s): U07.1 - COVID-19; J96.01 - Acute respiratory failure with hypoxia (2) Gastroenteritis Status: Acute Category: Medical Code(s): K52.9 - Noninfective gastroenteritis and colitis, unspecified (3) Pneumonia due to COVID-19 virus Status: Acute Category: Medical Code(s): U07.1 - COVID-19; J12.82 - Pneumonia due to coronavirus disease 2019 (4) Acute respiratory failure with hypoxemia Status: Acute Category: Medical Code(s): J96.01 - Acute respiratory failure with hypoxia - Assessment and plan all Dx Assessment and Plan for all problems:: Rounded with Dr. Trivedi, all orders per Dr. Trivedi: 1. Continue to wean oxygen as tolerated
[2020-10-11 09:56] LABS: Ferritin 244 ng/ml (11.1-264)
[2020-10-11 10:06] LABS: Lactate Dehydrogenase 745 U/L (313-618)
--- NOTE | 2020-10-11 10:26 | P.PN_ITS ---
Internal Medicine - PN: Subj *Date: 10/11/20 *Time: 10:26 Interval history: No acute respiratory events overnight. Patient denies any new respiratory complaints. Exam - Constitutional Constitutional:: Present: no acute distress, comfortable - HENMT Exam HENMT: Present: normocephalic, atraumatic - Eye Exam Eyes:: Present: normal appearance both eyes and related structures - Neck Exam Neck:: Present: normal visual inspection - Respiratory Exam Respiratory:: Present: able to speak in complete sentences, respiratory distress, crackles. Absent: wheezing - Cardiovascular Exam Cardiac:: Present: S1, S2 - GI Exam GI:: Present: soft, no hepatosplenomegaly - Skin Exam Skin: Present: warm, no rash - Neurological Exam Neurological: Present: alert, awake, normal cognition - Extremities Exam Extremities: Present: no cyanosis, no clubbing, edema Assessment and Plan (1) Acute hypoxemic respiratory failure due to COVID-19 Status: Acute Category: Medical Code(s): U07.1 - COVID-19; J96.01 - Acute respiratory failure with hypoxia (2) Gastroenteritis Status: Acute Category: Medical Code(s): K52.9 - Noninfective gastroenteritis and colitis, unspecified (3) Pneumonia due to COVID-19 virus Status: Acute Category: Medical Code(s): U07.1 - COVID-19; J12.82 - Pneumonia due to coronavirus disease 2019 (4) Acute respiratory failure with hypoxemia Status: Acute Category: Medical Code(s): J96.01 - Acute respiratory failure with hypoxia - Assessment and plan all Dx Assessment and Plan for all problems:: #COVID-19 pneumonia: #Acute hypoxic respiratory failure: 75-year-old no prior respiratory complaint no significant smoking history present with abdominal complaints found to be COVID-19 positive. Patient needing increasing oxygen requirement and currently high flow nasal cannula. CTA from admission did not show any evidence of pulmonary however showed bilateral diffuse patchy and groundglass opacities. Repeat chest x-ray from 10/07, reviewed, showed worsening left-sided pulmonary infiltrates along with ques tionable right lower lobe collapse. Bilateral lower extremity edema noted. Inflammatory markers improving. D-dimer relatively stable. Interval update: Patient continued to remain in high oxygen requirements. X-ray showed worsening pulmonary infiltrates. Initiated on BiPAP and Advair yesterday. Sputum Growing gram-positive cocci we will change antibiotics to vancomycin. Patient completed course of cefepime. We will continue noninvasive ventilation high flow nasal cannula alternating every 6 hours to facilitate proning while on high flow nasal cannula. Plan: -Initiate vancomycin, -Nasal MRSA screen, Most recent sputum growing gram- positive cocci. Follow with final cultures -Advair diskus twice daily scheduled. -Lasix 60 mg IV BID with Strict I's and O's. -Continue noninvasive ventilation and BiPAP pressure of 16/8 when patient is not proned. We will continue high flow nasal cannula for the rest of the duration. - F/U CRP, LDH and Ferritin -Continue awake proning protocol for atleast 12 hrs -Chest percussion therapy q8-12 hrs -Continue [id number] days total. -Dexamethasone to 6 mg daily x 10 days total -Incentive spirometry -Continue chemical DVT prophylaxis. #Thank you for involving pulmonary in this patient care. We'll continue to follow.
--- NOTE | 2020-10-11 11:29 | HMH.PHACONS ---
- Pharmacy Consult Date: 10/11/20 Time: 11:29 Referring provider: DR. NAVARRO Reason for Consult:: VANCOMYCIN DOSING Allergies and ADEs:: Allergies Allergy/AdvReac Type Severity Reaction Status Date / Time codeine [CODEINE] Allergy Unknown Unknown Verified 09/24/20 15:01 allergy reaction Home Medications:: Home Medications Medication Instructions Recorded Confirmed Type Aspirin [Aspirin 81mg chewable 81 mg PO DAILY 12/30/17 09/30/20 History tab] Cholecalciferol (Vitamin D3) 1,000 unit PO DAILY 08/16/20 09/30/20 History [Vitamin D3 1,000 Unit Cap] Ergocalciferol (Vitamin D2) 50,000 unit PO WEEKLY 08/16/20 10/01/20 History [Drisdol] Levothyroxine Sodium [Synthroid 100 mcg PO DAILY 08/16/20 09/30/20 History 100mcg (0.1mg) tablet] Losartan Potassium [Cozaar 50mg 50 mg PO DAILY 08/16/20 09/30/20 History Tablets] Pantoprazole Sodium 20 mg PO DAILY 08/16/20 09/30/20 History bisoproloL fumarate [Bisoprolol 2.5 mg PO DAILY 08/16/20 09/30/20 History Fumarate] hydroCHLOROthiazide 12.5 mg PO DAILY 08/16/20 09/30/20 History [Hydrochlorothiazide 12.5mg Tab] clopidogrel 75 mg tablet 75 mg PO DAILY tab 08/27/20 09/30/20 History Gabapentin [Gabapentin 100mg Cap] 100 mg PO BID 09/30/20 09/30/20 History Simvastatin 80 mg PO HS 09/30/20 09/30/20 History Height: 1.65 m Weight: 76.204 kg Laboratory Results:: Laboratory Results - last 24 hr 10/11/20 04:55: WBC 12.0 H, RBC 4.72, Hgb 14.2, Hct 40.1, MCV 85.1, MCH 30.2, MCHC 35.5 H, RDW 14.3, Plt Count 357, MPV 7.5, Neut % (Auto) 89.4 H, Lymph % (Auto) 3.8 L, [place] % (Auto) 3.7, Eos % (Auto) 2.2, Baso % (Auto) 0.9, Neut # (Auto) 10.7 H, Lymph # (Auto) 0.5 L, [place] # (Auto) 0.5, Eos # (Auto) 0.3, Baso # (Auto) 0.1, Total Counted 100, Neutrophils % (Manual) 94 H, Lymphocytes % (Manual) 4 L, Eosinophils % (Manual) 2, Platelet Estimate Normal, Stomatocytes 1+ 10/11/20 04:55: Sodium 135 L, Potassium 3.4 L, Chloride 98, Carbon Dioxide 33 H, Anion Gap 7.4, BUN 25 H D, Creatinine 0.60, Estimated Creat Clear 59, Estimated GFR 98, Est GFR ( Amer) 118, Glucose 98, Calcium 8.0 L 10/11/20 04:55: Ferritin 244, Lactate Dehydrogenase 745 H, C-Reactive Protein 6.1 H Medical History: Reports:: Coronary Artery Disease, Gastroesophageal Reflux Disease(GERD), Hyperlipidemia, Hypertension, Myocardial Infarction Denies:: Cancer, Diabetes Mellitus Type 1, Diabetes Mellitus Type 2, Internal Pacemaker, MRSA, Seizures Assessment and Plan (1) Acute hypoxemic respiratory failure due to COVID-19 Status: Acute Category: Medical Code(s): U07.1 - COVID-19; J96.01 - Acute respiratory failure with hypoxia (2) Gastroenteritis Status: Acute Category: Medical Code(s): K52.9 - Noninfective gastroenteritis and colitis, unspecified (3) Pneumonia due to COVID-19 virus Status: Acute Category: Medical Code(s): U07.1 - COVID-19; J12.82 - Pneumonia due to coronavirus disease 2019 (4) Acute respiratory failure with hypoxemia Status: Acute Category: Medical Code(s): J96.01 - Acute respiratory failure with hypoxia - Assessment and plan all Dx Assessment and Plan for all problems:: Pharmacokinetic dosing service Objective: Patient: Floor: Age: 75 yo Serum creatinine: 1.00 mg/dL Height: 65.0 Inches Weight (kg): 76.2 Assessment: IBW (kg): 57.00 Dosing wt(kg): 76.2 Estimated Creatinine clearance (ml/min): 44.4 CRCL method: Cockcroft and Gault using ibw(default). Drug selected: Vancomycin Loading dose (mg): Vd (liters): 53.3 (factor used: 0.7 L/kg) Michael (hr-1): 0.041 Half life (hrs): 16.91 CLvanco=?? 2.185 L/hr Recommended dose: 1250 mg Interval: 24 hrs Infusion time (hrs): 2.0 Predicted peak (mcg/mL): 36.0 Predicted trough (mcg/mL): 14.61 Total body weight is being used for vancomycin dosing.
--- NOTE | 2020-10-11 12:56 | HMH.ACPN2 ---
Internal Medicine - PN: Subj *Date: 10/11/20 *Time: 09:56 Exam Vital signs and Labs for Last 24 Hours: Temp Pulse Resp BP Pulse Ox 97.8 F 83 26 H 119/59 L 86 L 10/11/20 12:00 10/11/20 12:00 10/11/20 12:00 10/11/20 12:00 10/11/20 12:00 Laboratory Results - last 24 hr 10/11/20 04:55: WBC 12.0 H, RBC 4.72, Hgb 14.2, Hct 40.1, MCV 85.1, MCH 30.2, MCHC 35.5 H, RDW 14.3, Plt Count 357, MPV 7.5, Neut % (Auto) 89.4 H, Lymph % (Auto) 3.8 L, [place] % (Auto) 3.7, Eos % (Auto) 2.2, Baso % (Auto) 0.9, Neut # (Auto) 10.7 H, Lymph # (Auto) 0.5 L, [place] # (Auto) 0.5, Eos # (Auto) 0.3, Baso # (Auto) 0.1, Total Counted 100, Neutrophils % (Manual) 94 H, Lymphocytes % (Manual) 4 L, Eosinophils % (Manual) 2, Platelet Estimate Normal, Stomatocytes 1+ 10/11/20 04:55: Sodium 135 L, Potassium 3.4 L, Chloride 98, Carbon Dioxide 33 H, Anion Gap 7.4, BUN 25 H D, Creatinine 0.60, Estimated Creat Clear 59, Estimated GFR 98, Est GFR ( Amer) 118, Glucose 98, Calcium 8.0 L 10/11/20 04:55: Ferritin 244, Lactate Dehydrogenase 745 H, C-Reactive Protein 6.1 H I & O for Last 24 hours: Intake & Output 10/08/20 10/09/20 10/10/20 10/11/20 23:59 23:59 23:59 23:59 Intake Total 1410 / 1410 600 / 600 1180 / 1180 680 / 680 Output Total 0 / 0 500 / 500 Balance 1410 / 1410 600 / 600 1180 / 1180 180 / 180 Weight 175 lb 6 oz 175 lb 9 oz 171 lb 8 oz 168 lb Microbiology Reports for the Last 24 Hours: Microbiology 10/09/20 11:35 Sputum - Expectorated Sputum Gram Stain - Final 10/09/20 11:35 Sputum - Expectorated Sputum Sputum Culture - Preliminary Gram Positive Cocci Assessment and Plan (1) Acute hypoxemic respiratory failure due to COVID-19 Status: Acute Category: Medical Code(s): U07.1 - COVID-19; J96.01 - Acute respiratory failure with hypoxia (2) Gastroenteritis Status: Acute Category: Medical Code(s): K52.9 - Noninfective gastroenteritis and colitis, unspecified (3) Pneumonia due to COVID-19 virus Status: Acute Category: Medical Code(s): U07.1 - COVID-19; J12.82 - Pneumonia due to coronavirus disease 2019 (4) Acute respiratory failure with hypoxemia Status: Acute Category: Medical Code(s): J96.01 - Acute respiratory failure with hypoxia
--- NOTE | 2020-10-11 23:14 | PC.NURSE ---
Pt placed on Bipap 100% and is now resting in (L) lateral position. She has tolerated prone position this evening while on Vapotherm 40L 100% and NRB. No complaints stated. O2 sat is currently 91%. Other VSS. Will continue to monitor.
[2020-10-12] VITALS (12 sets, daily range): BP systolic 113–166; BP diastolic 54–83; PULSE 66–101; RESP 4–35; TEMP 36.3–36.7; O2SAT 87–96; BMI 27.5
--- NOTE | 2020-10-12 05:48 | PC.NURSE ---
Pt has tolerated Bipap this shift. O2 sats 92%. Other VSS. Has remained afebrile. Has not voiced any complaints. Will place back on Vapotherm with NRB this AM. No other concerns. Will continue to monitor.
[2020-10-12 05:59] LABS: Basophils % 0.3 % (0.1-2.0); Eosinophils # 0.1 K/mm3 (0.0-0.4); Eosinophils % 0.7 % (0.1-12.0); Hematocrit 43.5 % (37.0-47.0); Hemoglobin 14.9 g/dL (12.2-16.2); Lymphocytes # 0.5 K/mm3 (0.7-4.5); Lymphocytes % 3.2 % (10-50); Mean Corpuscular HGB Conc 34.1 g/dL (31.8-35.4); Mean Corpuscular Hemoglobin 29.4 pg (27.0-31.2); Mean Corpuscular Volume 86.1 fl (81-99); Mean Platelet Volume 7.2 fl (7.4-10.4); Monocytes # 0.5 K/mm3 (0.1-1.0); Monocytes % 3.6 % (1.7-9.3); Neutrophils # 13.8 K/mm3 (1.8-7.8); Neutrophils % 92.1 % (37.0-80.0); Platelet Count 349 K/mm3 (142-424); Red Blood Count 5.05 M/mm3 (4.20-5.40); Red Cell Distribution Width 14.1 % (11.5-17.5)
--- NOTE | 2020-10-12 06:00 | PC.NURSE ---
Pt placed on Vapotherm 40 L 100%
[2020-10-12 06:19] LABS: Anion Gap 11.4 mEq/L (5-15); Blood Urea Nitrogen 32 mg/dl (7-17); Calcium 7.9 mg/dl (8.4-10.2); Carbon Dioxide 34 mmol/L (22.0-30.0); Chloride 93 mmol/L (98-107); Creatinine Clearance Estimated 58 mL/min (50-200); Estimated Glomerular Filt Rate 82 ml/min (>60); GFR (African American) 99 ML/MIN (>60); Glucose 120 mg/dl (74-100); Potassium 3.4 mmoL/L (3.5-5.1); Sodium 135 mmol/L (136-145)
[2020-10-12 06:24] LABS: MANUAL DIFFERENTIAL MANUAL DIFFERENTIAL (MANUAL DIFF)
[2020-10-12 06:50] LABS: Lymphocytes % 5 % (10-50); Monocytes % 1 % (2-9); Neutrophils % 88 % (42-76); Platelet Estimate Normal; RBC Morphology Normal; Total Cells Counted 100
--- NOTE | 2020-10-12 09:11 | PC.NURSE ---
PT IS RESTING IN BED. TOLERATED SITTING UP ON THE SOB THIS MORNING TO EAT A FEW BITES OF BREAKFAST. O2 SATURATION MAINTAINS 89-92% AT REST HOWEVER WITH VERY MINIMAL EXERTION O2 SATURATION WILL DROP TO THE LOW 80'S AND PT REQUIRES THE NON REBREATHER WITH VAPOTHERM 100% FIO2 AND 40 L. LUNG SOUNDS DIMINISHED WITH BILATERAL CRACKLES. ABDOMEN SOFT/NON TENDER WITH BRUISING NOTED FROM LOVENOX INJECTIONS. TRACE EDEMA NOTED TO BLE. PT TOLERATED ALL OF HER PO MEDICATIONS W/O DIFFICULTY. WILL CONTINUE TO MONITOR.
--- NOTE | 2020-10-12 10:44 | XR_ITS ---
PROCEDURE INFORMATION: Exam: XR Chest Exam date and time: 10/12/2020 10:44 AM Age: 75 years old Clinical indication: Shortness of breath; Additional info: Hypoxia TECHNIQUE: Imaging protocol: XR of the chest. Views: 1 view. COMPARISON: CR XR CHEST PORTABLE 10/09/2020 10:31 AM FINDINGS: Lungs: Patchy bilateral opacities may represent multifocal pneumonia.. Pleural spaces: Unremarkable. No pleural effusion. No pneumothorax. Heart/Mediastinum: Stable cardiac silhouette Bones/joints: Unremarkable. IMPRESSION: Patchy bilateral opacities may represent multifocal pneumonia..
--- NOTE | 2020-10-12 15:42 | HMH.ACPN2 ---
Internal Medicine - PN: Subj *Date: 10/12/20 *Time: 15:42 Interval history: Nursing staff reports interval improvement. I spoke to respiratory therapy, they concur. Patient currently on BiPAP, showing improved spirits. MRSA culture is pending, if negative stop vancomycin. Pulmonology following. Exam Vital signs and Labs for Last 24 Hours: Temp Pulse Resp BP Pulse Ox 98.0 F 100 H 22 113/83 90 L 10/12/20 07:54 10/12/20 12:00 10/12/20 12:00 10/12/20 12:00 10/12/20 12:00 Laboratory Results - last 24 hr 10/12/20 05:05: WBC 15.0 H, RBC 5.05, Hgb 14.9, Hct 43.5, MCV 86.1, MCH 29.4, MCHC 34.1, RDW 14.1, Plt Count 349, MPV 7.2 L, Neut % (Auto) 92.1 H, Lymph % (Auto) 3.2 L, [place] % (Auto) 3.6, Eos % (Auto) 0.7, Baso % (Auto) 0.3, Neut # (Auto) 13.8 H, Lymph # (Auto) 0.5 L, [place] # (Auto) 0.5, Eos # (Auto) 0.1, Baso # (Auto) 0.0, Total Counted 100, Neutrophils % (Manual) 88 H, Band Neutrophils % 6.0, Lymphocytes % (Manual) 5 L, Monocytes % (Manual) 1 L, Platelet Estimate Normal, RBC Morphology Normal 10/12/20 05:05: Sodium 135 L, Potassium 3.4 L, Chloride 93 L, Carbon Dioxide 34 H, Anion Gap 11.4, BUN 32 H D, Creatinine 0.70, Estimated Creat Clear 58, Estimated GFR 82, Est GFR ( Amer) 99, Glucose 120 H, Calcium 7.9 L I & O for Last 24 hours: Intake & Output 10/09/20 10/10/20 10/11/20 10/12/20 23:59 23:59 23:59 23:59 Intake Total 600 / 600 1180 / 1180 1750 / 1750 1200 / 1200 Output Total 0 / 0 1850 / 1850 500 / 500 Balance 600 / 600 1180 / 1180 -100 / -100 700 / 700 Weight 175 lb 9 oz 171 lb 8 oz 168 lb 165 lb 5 oz Microbiology Reports for the Last 24 Hours: Microbiology 10/09/20 11:35 Sputum - Expectorated Sputum Gram Stain - Final 10/09/20 11:35 Sputum - Expectorated Sputum Sputum Culture - Final Streptococcus constellatus - Constitutional no acute distress, chronically ill appearing - *Routine HEENT Exam Head: Present: normocephalic Eye: Present: EOMI, PERRL ENT: Present: mucous membranes moist - *Routine Neck Exam Present: supple. Absent: lymphadenopathy - *Routine Respiratory Exam Present: rhonchi, crackles, diminished air movement. Absent: respiratory distress - *Routine Cardiovascular Exam Present: RRR - *Routine Abdominal Exam Present: soft, normoactive bowel sounds. Absent: tenderness - *Routine Extremities Exam Absent: cyanosis, clubbing, edema - *Routine Skin Exam Present: warm. Absent: rash - *Routine Neurological Exam Present: alert, oriented X3 Assessment and Plan (1) Acute hypoxemic respiratory failure due to COVID-19 Status: Acute Category: Medical Code(s): U07.1 - COVID-19; J96.01 - Acute respiratory failure with hypoxia (2) Gastroenteritis Status: Acute Category: Medical Code(s): K52.9 - Noninfective gastroenteritis and colitis, unspecified (3) Pneumonia due to COVID-19 virus Status: Acute Category: Medical Code(s): U07.1 - COVID-19; J12.82 - Pneumonia due to coronavirus disease 2019 (4) Acute respiratory failure with hypoxemia Status: Acute Category: Medical Code(s): J96.01 - Acute respiratory failure with hypoxia - Assessment and plan all Dx Assessment and Plan for all problems:: Continue current regimen. See chart for further orders.
[2020-10-13] VITALS (8 sets, daily range): BP systolic 111–141; BP diastolic 42–64; PULSE 60–102; RESP 16–26; TEMP 36.3–36.9; O2SAT 85–96; BMI 27.3
--- NOTE | 2020-10-13 03:46 | PC.NURSE ---
Pt has rested well this shift. No complaints voiced. Ambulated to BSC early in shift. Was placed in prone position while on vapotherm. Tolerated well. Was placed on Bipap around 2200 and is currently tolerating. O2 sat is 93%. Other VSS. Will continue to monitor.
--- NOTE | 2020-10-13 09:43 | PC.NURSE ---
Addendum entered by Tamera Lagunas RN 10/13/20 18:56: lab called this afternoon with critical glucose. pt was given orange juice and was notified an order for an amp of d50 was ordered. glucose rechecked and it was 307. Original Note: PT IS RESTING IN BED. ALERT AND ORIENTED. PT STATES SHE DOES NOT FEEL ANY WORSE THIS MORNING AND SHE SLEPT WELL T/O THE NIGHT HOWEVER PT IS REQUIRING THE NON REBREATHER WITH VAPOTHERM MORE THIS MORNING THAN YESTERDAY. WITH VAPOTHERM 40 L 100% FIO2 AND 100% NON REBREATHER SATURATION IS ONLY MAINTAINING 86-89%. PT GOT UP TO THE BSC EARLIER WITH VAPOTHERM AND QUICKLY DESATTED TO THE 50'S. WHEN PT GOT BACK TO BED SHE REQUESTED THE NON REBREATHER AND IT TOOK SEVERAL MINUTES FOR PT'S O2 SATURATION TO REBOUND BACK TO THE 80'S. AT THIS TIME O2 SATURATION 88% AT REST. RT NOTIFIED. PT DID TOLERATE A FEW BITES OF BREAKFAST THIS MORNING AND IS DRINKING FLUIDS W/O DIFFICULTY. LUNG SOUNDS DIMINISHED WITH BILATERAL CRACKLES. NO SWELLING NOTED TO BLE. PT REQUESTED FOR TEDS TO BE REMOVED. SCATTERED BRUISING NOTED TO THE ABDOMEN FROM LOVENOX INJECTIONS. WILL CONTINUE TO MONITOR.
--- NOTE | 2020-10-13 14:44 | HMH.ACPN2 ---
Internal Medicine - PN: Subj *Date: 10/13/20 *Time: 14:44 Interval history: Staff relays no new concerns over the night. Did have an episode where she got up to the bedside commode, desaturated in the 50s and it took a prolonged period of time to get her back to the low 80s. She is using Vapotherm 100% 40 L with a nonrebreather, goes on and off the BiPAP. She is laying quiet she is comfortable. On exam she is awake clear and lucid. She has been cooperative. Her lungs demonstrate scattered crackles, possibly fibrotic in nature. MRSA swab was negative, she is off the vancomycin. Exam Vital signs and Labs for Last 24 Hours: Temp Pulse Resp BP Pulse Ox 98.5 F 65 20 119/61 93 L 10/13/20 12:00 10/13/20 12:00 10/13/20 12:00 10/13/20 12:00 10/13/20 12:00 I & O for Last 24 hours: Intake & Output 10/10/20 10/11/20 10/12/20 10/13/20 23:59 23:59 23:59 23:59 Intake Total 1180 / 1180 1750 / 1750 1800 / 1800 1080 / 1080 Output Total 0 / 0 1850 / 1850 1700 / 1700 Balance 1180 / 1180 -100 / -100 100 / 100 1080 / 1080 Weight 171 lb 8 oz 168 lb 165 lb 5 oz 164 lb 5 oz Microbiology Reports for the Last 24 Hours: Microbiology 10/11/20 06:05 Nose - Nasal MRSA Culture - Final Negative - Constitutional no acute distress, cooperative - *Routine HEENT Exam Head: Present: normocephalic Eye: Present: EOMI, PERRL ENT: Present: mucous membranes moist - *Routine Neck Exam Present: supple. Absent: lymphadenopathy - *Routine Respiratory Exam Present: crackles. Absent: respiratory distress - *Routine Cardiovascular Exam Present: RRR - *Routine Abdominal Exam Present: soft, normoactive bowel sounds. Absent: tenderness - *Routine Extremities Exam Absent: cyanosis, clubbing, edema - *Routine Skin Exam Present: warm. Absent: rash - *Routine Neurological Exam Present: alert, oriented X3 Assessment and Plan (1) Acute hypoxemic respiratory failure due to COVID-19 Status: Acute Category: Medical Code(s): U07.1 - COVID-19; J96.01 - Acute respiratory failure with hypoxia (2) Gastroenteritis Status: Acute Category: Medical Code(s): K52.9 - Noninfective gastroenteritis and colitis, unspecified (3) Pneumonia due to COVID-19 virus Status: Acute Category: Medical Code(s): U07.1 - COVID-19; J12.82 - Pneumonia due to coronavirus disease 2019 (4) Acute respiratory failure with hypoxemia Status: Acute Category: Medical Code(s): J96.01 - Acute respiratory failure with hypoxia - Assessment and plan all Dx Assessment and Plan for all problems:: We will continue her current regimen and follow closely with the pulmonary service.
[2020-10-13 14:53] LABS: Basophils # 0.1 K/mm3 (0-0.2); Basophils % 0.3 % (0.1-2.0); Chloride 92 mmol/L (98-107); Eosinophils # 0.2 K/mm3 (0.0-0.4); Eosinophils % 1.3 % (0.1-12.0); Hematocrit 44.9 % (37.0-47.0); Hemoglobin 15.1 g/dL (12.2-16.2); Lymphocytes # 0.7 K/mm3 (0.7-4.5); Lymphocytes % 4.4 % (10-50); Mean Corpuscular HGB Conc 33.8 g/dL (31.8-35.4); Mean Corpuscular Hemoglobin 29.7 pg (27.0-31.2); Mean Platelet Volume 9.8 fl (7.4-10.4); Monocytes # 0.8 K/mm3 (0.1-1.0); Neutrophils # 14.8 K/mm3 (1.8-7.8); Platelet Count 353 K/mm3 (142-424); Red Cell Distribution Width 14.5 % (11.5-17.5); White Blood Count 16.6 K/mm3 (4.8-10.8)
[2020-10-13 14:54] LABS: Sodium 138 mmol/L (136-145)
[2020-10-13 14:57] LABS: Blood Urea Nitrogen 40 mg/dl (7-17); Carbon Dioxide 35 mmol/L (22.0-30.0); Creatinine Clearance Estimated 58 mL/min (50-200); Estimated Glomerular Filt Rate 82 ml/min (>60); GFR (African American) 99 ML/MIN (>60)
[2020-10-13 15:00] LABS: Glucose 43 mg/dl (74-100)
[2020-10-13 15:29] LABS: MANUAL DIFFERENTIAL MANUAL DIFFERENTIAL (MANUAL DIFF)
[2020-10-13 16:35] LABS: Calcium 8.7 mg/dl (8.4-10.2)
[2020-10-13 16:43] LABS: Lymphocytes % 5 % (10-50); Monocytes % 8 % (2-9); Neutrophils % 87 % (42-76); Platelet Estimate Normal; RBC Morphology Normal; Total Cells Counted 100
[2020-10-14] VITALS (14 sets, daily range): BP systolic 124–130; BP diastolic 56–72; PULSE 60–81; RESP 16–32; TEMP 36.4–37.1; O2SAT 87–94; BMI 27.7
--- NOTE | 2020-10-14 03:08 | PC.NURSE ---
No acute changes overnight. Pt is A&O x4. No complaints voiced. Medication administered per may. Pt is currently on Bipap since 2004. Has tolerated well. O2 sats low 90s. Lungs noted to have crackles to bilateral bases. BS active. VSS. Will continue to monitor.
--- NOTE | 2020-10-14 05:41 | PC.NURSE ---
Vapotherm 40L 100% with NRB placed on pt. Pt up to BSC then placed in prone position. Pt tolerating well. O2 sat currently 92%.
[2020-10-14 06:09] LABS: Basophils % 0.2 % (0.1-2.0); Chloride 97 mmol/L (98-107); Eosinophils # 0.3 K/mm3 (0.0-0.4); Eosinophils % 1.7 % (0.1-12.0); Hematocrit 42.3 % (37.0-47.0); Hemoglobin 14.7 g/dL (12.2-16.2); Lymphocytes # 0.8 K/mm3 (0.7-4.5); Lymphocytes % 4.8 % (10-50); Mean Corpuscular HGB Conc 34.8 g/dL (31.8-35.4); Mean Corpuscular Hemoglobin 30.1 pg (27.0-31.2); Mean Corpuscular Volume 86.5 fl (81-99); Monocytes % 5.6 % (1.7-9.3); Neutrophils # 15.1 K/mm3 (1.8-7.8); Neutrophils % 87.8 % (37.0-80.0); Platelet Count 320 K/mm3 (142-424); Potassium 3.5 mmoL/L (3.5-5.1); Red Blood Count 4.89 M/mm3 (4.20-5.40); Red Cell Distribution Width 14.2 % (11.5-17.5); Sodium 137 mmol/L (136-145); White Blood Count 17.2 K/mm3 (4.8-10.8)
[2020-10-14 06:11] LABS: MANUAL DIFFERENTIAL MANUAL DIFFERENTIAL (MANUAL DIFF)
[2020-10-14 06:12] LABS: Anion Gap 8.5 mEq/L (5-15); Blood Urea Nitrogen 33 mg/dl (7-17); Carbon Dioxide 35 mmol/L (22.0-30.0); Creatinine Clearance Estimated 59 mL/min (50-200); Estimated Glomerular Filt Rate 70 ml/min (>60); GFR (African American) 85 ML/MIN (>60)
[2020-10-14 06:13] LABS: Calcium 8.2 mg/dl (8.4-10.2); Glucose 107 mg/dl (74-100)
[2020-10-14 06:26] LABS: Eosinophils % 1 % (0-3); Lymphocytes % 7 % (10-50); Monocytes % 4 % (2-9); Neutrophils % 81 % (42-76); Total Cells Counted 100
[2020-10-14 06:27] LABS: Platelet Estimate Normal; RBC Morphology Normal
--- NOTE | 2020-10-14 10:23 | P.PN_ITS ---
Internal Medicine - PN: Subj *Date: 10/14/20 *Time: 10:23 Interval history: No acute respite events over the weekend. Patient denies any new complaints. Continue to require high oxygen supplementation. Exam - Constitutional Constitutional:: Present: no acute distress, comfortable - HENMT Exam HENMT: Present: normocephalic, atraumatic - Neck Exam Neck:: Present: normal visual inspection - Respiratory Exam Respiratory:: Present: able to speak in complete sentences, respiratory distress, crackles. Absent: wheezing - Cardiovascular Exam Cardiac:: Present: S1, S2 - GI Exam GI:: Present: soft, no hepatosplenomegaly - Skin Exam Skin: Present: warm, no rash, dry - Neurological Exam Neurological: Present: alert, awake - Extremities Exam Extremities: Present: no cyanosis, no clubbing, no edema - Psychiatric Exam Psychiatric: Present: normal affect Assessment and Plan (1) Acute hypoxemic respiratory failure due to COVID-19 Status: Acute Category: Medical Code(s): U07.1 - COVID-19; J96.01 - Acute respiratory failure with hypoxia (2) Gastroenteritis Status: Acute Category: Medical Code(s): K52.9 - Noninfective gastroenteritis and colitis, unspecified (3) Pneumonia due to COVID-19 virus Status: Acute Category: Medical Code(s): U07.1 - COVID-19; J12.82 - Pneumonia due to coronavirus disease 2019 (4) Acute respiratory failure with hypoxemia Status: Acute Category: Medical Code(s): J96.01 - Acute respiratory failure with hypoxia - Assessment and plan all Dx Assessment and Plan for all problems:: #COVID-19 pneumonia: #Acute hypoxic respiratory failure: 75-year-old no prior respiratory complaint no significant smoking history pr esent with abdominal complaints found to be COVID-19 positive. Patient needing increasing oxygen requirement and currently high flow nasal cannula. CTA from admission did not show any evidence of pulmonary however showed bilateral diffuse patchy and groundglass opacities. Repeat chest x-ray from 10/07, reviewed, showed worsening left-sided pulmonary infiltrates along with questionable right lower lobe collapse. Bilateral lower extremity edema noted. Inflammatory markers improving. D-dimer relatively stable. Interval update: Patient continued to remain in high oxygen requirements. Chest x-ray showed improved pulmonary infiltrates after diuresis. MRSA screen negative, vancomycin deescalated to Zosyn. Patient has been receiving cefepime during which he had a positive sputum culture. Inflammatory markers including CRP and ferritin not significantly elevated however patient noted to have increased LDH from prior. Hemoglobin stable. Leukocytosis continued to increase, neutrophil predominant. Completed a 10-day course of remdesivir and dexamethasone Plan: -Repeat CXR -Continue Zosyn for total of 7 days from 10/09/20 -Advair diskus twice daily scheduled. -Continue noninvasive ventilation and BiPAP pressure of 16/8 when patient is not proned. We will continue high flow nasal cannula for the rest of the duration. -Continue awake proning protocol for atleast 12 hrs -Chest percussion therapy q8-12 hrs -Incentive spirometry -Continue chemical DVT prophylaxis. #Thank you for involving pulmonary in this patient care. We'll continue to follow.
--- NOTE | 2020-10-14 10:26 | XR_ITS ---
PROCEDURE: XR CHEST PORTABLE CLINICAL HISTORY: Hypoxia COMPARISON: CT CT ANGIO CHEST PE PROTOCOL from 09/30/2020 CR XR CHEST PORTABLE from 10/07/2020 CR XR CHEST PORTABLE from 10/09/2020 CR XR CHEST PORTABLE from 10/12/2020 FINDINGS: There is diffuse bilateral alveolar opacification which has progressed compared 10/12/2020. Cardiomegaly. No large effusions apparent. No acute bony findings. IMPRESSION: Worsening of diffuse bilateral alveolar opacification consistent with worsening pneumonia and/or ARDS or pulmonary edema. Lung volumes are slightly lower compared to previous exam. Dictated by: Boone Casarez MD 10/14/2020 11:37 Boone Casarez MD in [facility] 10/14/2020 11:37
--- NOTE | 2020-10-14 12:42 | HMH.ACPN2 ---
Internal Medicine - PN: Subj *Date: 10/14/20 *Time: 08:45 Interval history: pt sitting up in bed o2 in place Exam Vital signs and Labs for Last 24 Hours: Temp Pulse Resp BP Pulse Ox 98.8 F 75 28 H 124/56 L 90 L 10/14/20 11:32 10/14/20 11:32 10/14/20 11:32 10/14/20 11:32 10/14/20 11:32 Laboratory Results - last 24 hr 10/13/20 05:40: WBC 16.6 H, RBC 5.10, Hgb 15.1, Hct 44.9, MCV 88.0, MCH 29.7, MCHC 33.8, RDW 14.5, Plt Count 353, MPV 9.8, Neut % (Auto) 89.0 H, Lymph % (Auto) 4.4 L, [place] % (Auto) 5.0, Eos % (Auto) 1.3, Baso % (Auto) 0.3, Neut # (Auto) 14.8 H, Lymph # (Auto) 0.7, [place] # (Auto) 0.8, Eos # (Auto) 0.2, Baso # (Auto) 0.1, Total Counted 100, Neutrophils % (Manual) 87 H, Lymphocytes % (Manual) 5 L, Monocytes % (Manual) 8, Platelet Estimate Normal, RBC Morphology Normal 10/13/20 05:40: Sodium 138, Potassium 3.0 L, Chloride 92 L, Carbon Dioxide 35 H, Anion Gap 14.0, BUN 40 H, Creatinine 0.70, Estimated Creat Clear 58, Estimated GFR 82, Est GFR ( Amer) 99, Glucose 43 L, Calcium 8.7 D 10/14/20 05:15: WBC 17.2 H, RBC 4.89, Hgb 14.7, Hct 42.3, MCV 86.5, MCH 30.1, MCHC 34.8, RDW 14.2, Plt Count 320, MPV 8.0, Neut % (Auto) 87.8 H, Lymph % (Auto) 4.8 L, [place] % (Auto) 5.6, Eos % (Auto) 1.7, Baso % (Auto) 0.2, Neut # (Auto) 15.1 H, Lymph # (Auto) 0.8, [place] # (Auto) 1.0, Eos # (Auto) 0.3, Baso # (Auto) 0.0, Total Counted 100, Neutrophils % (Manual) 81 H, Band Neutrophils % 7.0, Lymphocytes % (Manual) 7 L, Monocytes % (Manual) 4, Eosinophils % (Manual) 1, Platelet Estimate Normal, RBC Morphology Normal 10/14/20 05:15: Sodium 137, Potassium 3.5, Chloride 97 L, Carbon Dioxide 35 H, Anion Gap 8.5, BUN 33 H, Creatinine 0.80, Estimated Creat Clear 59, Estimated GFR 70, Est GFR ( Amer) 85, Glucose 107 H D, Calcium 8.2 L I & O for Last 24 hours: Intake & Output 10/12/20 10/13/20 10/14/20 10/15/20 11:59 11:59 11:59 11:59 Intake Total 2150 / 2150 1680 / 1680 660 / 660 120 / 120 Output Total 1850 / 1850 1200 / 1200 125 / 125 Balance 300 / 300 480 / 480 535 / 535 120 / 120 Weight 165 lb 5 oz 164 lb 5 oz 166 lb 8 oz Microbiology Reports for the Last 24 Hours: Microbiology 10/11/20 06:05 Nose - Nasal MRSA Culture - Final Negative - Constitutional no acute distress - *Routine HEENT Exam Head: Present: normocephalic Eye: Present: PERRL ENT: Present: mucous membranes moist - *Routine Neck Exam Present: supple. Absent: lymphadenopathy - *Routine Respiratory Exam Present: decreased breath sounds, crackles - *Routine Cardiovascular Exam Present: RRR - *Routine Abdominal Exam Present: soft, normoactive bowel sounds. Absent: tenderness - *Routine Extremities Exam Absent: cyanosis, clubbing, edema - *Routine Skin Exam Present: warm. Absent: rash - *Routine Neurological Exam Present: alert, oriented X3 - Routine Psychiatric Exam Present: normal affect Assessment and Plan (1) Acute hypoxemic respiratory failure due to COVID-19 Status: Acute Category: Medical Code(s): U07.1 - COVID-19; J96.01 - Acute respiratory failure with hypoxia (2) Gastroenteritis Status: Acute Category: Medical Code(s): K52.9 - Noninfective gastroenteritis and colitis, unspecified (3) Pneumonia due to COVID-19 virus Status: Acute Category: Medical Code(s): U07.1 - COVID-19; J12.82 - Pneumonia due to coronavirus disease 2019 (4) Acute respiratory failure with hypoxemia Status: Acute Category: Medical Code(s): J96.01 - Acute respiratory failure with hypoxia - Assessment and plan all Dx Assessment and Plan for all problems:: rounded with dr santiago all orders per dr santiago follow with pulm
--- NOTE | 2020-10-14 14:33 | PC.NURSE ---
PT IS RESTING IN BED WITH BIPAP ON AT THIS TIME. ALERT AND ORIENTED X4. WHILE PT WAS ON VAPOTHERM AT 100% 40 L O2 SATURATION MAINTAINED 86-89% AT REST. WITH BIPAP O2 SATURATION 89-91%. PT TOLERATED BATH AND LINEN CHANGE WITH TOTAL ASSISTANCE. PT IS HAVING A DIFFICULT TIME UNDERSTANDING WHY SHE ISN'T GETTING ANY BETTER. LUNG SOUNDS DIMINISHED WITH BILATERAL CRACKLES. ABDOMEN SOFT/NON TENDER WITH BRUISING NOTED DUE TO LOVENOX INJECTIONS. EATING AND DRINKING FAIR. WILL CONTINUE TO MONITOR.
[2020-10-15] VITALS (11 sets, daily range): BP systolic 119–158; BP diastolic 63–74; PULSE 63–120; RESP 14–47; TEMP 36.6–37.3; O2SAT 86–91; BMI 27.6
[2020-10-15 07:44] LABS: Basophils # 0.1 K/mm3 (0-0.2); Basophils % 0.3 % (0.1-2.0); Eosinophils # 0.3 K/mm3 (0.0-0.4); Eosinophils % 2.2 % (0.1-12.0); Hematocrit 44.9 % (37.0-47.0); Hemoglobin 15.2 g/dL (12.2-16.2); Lymphocytes # 0.8 K/mm3 (0.7-4.5); Lymphocytes % 5.5 % (10-50); Mean Corpuscular HGB Conc 33.8 g/dL (31.8-35.4); Mean Corpuscular Hemoglobin 30.1 pg (27.0-31.2); Mean Platelet Volume 7.4 fl (7.4-10.4); Monocytes # 0.9 K/mm3 (0.1-1.0); Monocytes % 6.2 % (1.7-9.3); Neutrophils # 12.2 K/mm3 (1.8-7.8); Neutrophils % 85.7 % (37.0-80.0); Platelet Count 281 K/mm3 (142-424); Red Blood Count 5.04 M/mm3 (4.20-5.40); Red Cell Distribution Width 14.4 % (11.5-17.5); White Blood Count 14.3 K/mm3 (4.8-10.8)
[2020-10-15 07:46] LABS: Chloride 95 mmol/L (98-107); MANUAL DIFFERENTIAL MANUAL DIFFERENTIAL (MANUAL DIFF); Sodium 139 mmol/L (136-145)
[2020-10-15 07:47] LABS: Potassium 3.3 mmoL/L (3.5-5.1)
[2020-10-15 07:50] LABS: Anion Gap 8.3 mEq/L (5-15); Blood Urea Nitrogen 33 mg/dl (7-17); Calcium 8.3 mg/dl (8.4-10.2); Carbon Dioxide 39 mmol/L (22.0-30.0); Creatinine Clearance Estimated 59 mL/min (50-200); Estimated Glomerular Filt Rate 70 ml/min (>60); GFR (African American) 85 ML/MIN (>60); Glucose 102 mg/dl (74-100)
[2020-10-15 08:13] LABS: Lymphocytes % 7 % (10-50); Monocytes % 4 % (2-9); Neutrophils % 89 % (42-76); Platelet Estimate Normal; RBC Morphology Normal; Total Cells Counted 100
--- NOTE | 2020-10-15 08:42 | HMH.ACPN2 ---
Internal Medicine - PN: Subj *Date: 10/15/20 *Time: 09:18 Interval history: 75-year-old female patient sitting up in bed tolerating a lunch with no complaints of nausea. We will have periods of BiPAP usage while not on BiPAP will be Vapotherm and prone. Exam Vital signs and Labs for Last 24 Hours: Temp Pulse Resp BP Pulse Ox 97.9 F 120 H 26 H 149/63 H 90 L 10/15/20 08:00 10/15/20 08:00 10/15/20 08:00 10/15/20 08:00 10/15/20 08:00 Laboratory Results - last 24 hr 10/15/20 06:54: WBC 14.3 H, RBC 5.04, Hgb 15.2, Hct 44.9, MCV 89.0, MCH 30.1, MCHC 33.8, RDW 14.4, Plt Count 281, MPV 7.4, Neut % (Auto) 85.7 H, Lymph % (Auto) 5.5 L, [place] % (Auto) 6.2, Eos % (Auto) 2.2, Baso % (Auto) 0.3, Neut # (Auto) 12.2 H, Lymph # (Auto) 0.8, [place] # (Auto) 0.9, Eos # (Auto) 0.3, Baso # (Auto) 0.1, Total Counted 100, Neutrophils % (Manual) 89 H, Lymphocytes % (Manual) 7 L, Monocytes % (Manual) 4, Platelet Estimate Normal, RBC Morphology Normal 10/15/20 06:54: Sodium 139, Potassium 3.3 L, Chloride 95 L, Carbon Dioxide 39 H, Anion Gap 8.3, BUN 33 H, Creatinine 0.80, Estimated Creat Clear 59, Estimated GFR 70, Est GFR ( Amer) 85, Glucose 102 H, Calcium 8.3 L I & O for Last 24 hours: Intake & Output 10/12/20 10/13/20 10/14/20 10/15/20 23:59 23:59 23:59 23:59 Intake Total 1800 / 1800 1140 / 1140 600 / 600 Output Total 1700 / 1700 525 / 525 Balance 100 / 100 1140 / 1140 75 / 75 Weight 165 lb 5 oz 164 lb 5 oz 166 lb 8 oz 166 lb 1.011 oz - Constitutional no acute distress - *Routine HEENT Exam Head: Present: normocephalic Eye: Present: EOMI ENT: Present: mucous membranes moist - *Routine Neck Exam Present: trachea midline. Absent: tracheal deviation - *Routine Respiratory Exam Present: decreased breath sounds, crackles. Absent: accessory muscle use - *Routine Cardiovascular Exam Present: RRR - *Routine Abdominal Exam Present: soft, normoactive bowel sounds. Absent: tenderness, firm - *Routine Extremities Exam Present: full ROM, pulses intact. Absent: cyanosis, clubbing, edema, calf tenderness - *Routine Skin Exam Present: intact, dry, warm. Absent: cyanosis, erythema - *Routine Neurological Exam Present: alert, oriented X3. Absent: motor deficit, altered mental status - Routine Psychiatric Exam Present: normal affect, normal thought process. Absent: auditory hallucinations, visual hallucinations Assessment and Plan (1) Acute hypoxemic respiratory failure due to COVID-19 Status: Acute Category: Medical Code(s): U07.1 - COVID-19; J96.01 - Acute respiratory failure with hypoxia (2) Gastroenteritis Status: Acute Category: Medical Code(s): K52.9 - Noninfective gastroenteritis and colitis, unspecified (3) Pneumonia due to COVID-19 virus Status: Acute Category: Medical Code(s): U07.1 - COVID-19; J12.82 - Pneumonia due to coronavirus disease 2019 (4) Acute respiratory failure with hypoxemia Status: Acute Category: Medical Code(s): J96.01 - Acute respiratory failure with hypoxia - Assessment and plan all Dx Assessment and Plan for all problems:: Rounded with Dr. Saba, all orders for Dr. Saba: 1. Continue to wean oxygen as tolerated 2. Pulmonology following
--- NOTE | 2020-10-15 08:55 | XR_ITS ---
PROCEDURE: XR CHEST PORTABLE CLINICAL HISTORY: pnm Follow-up pneumonia COMPARISON: CT CT ANGIO CHEST PE PROTOCOL from 09/30/2020 CR XR CHEST PORTABLE from 10/09/2020 CR XR CHEST PORTABLE from 10/12/2020 CR XR CHEST PORTABLE from 10/14/2020 FINDINGS: No change diffuse bilateral alveolar opacification with low lung volumes. No evidence of pneumothorax. Normal heart size. No acute bony abnormalities. IMPRESSION: No change diffuse bilateral airspace disease consistent with pneumonia, ARDS, or pulmonary edema Dictated by: Boone Casarez MD 10/15/2020 09:51 Boone Casarez MD in [facility] 10/15/2020 09:51
--- NOTE | 2020-10-15 10:03 | PC.NURSE ---
BiPAP settings changed per Dr. Novak. 24/02, back up rate 14
--- NOTE | 2020-10-15 10:41 | HMH.PULMPN ---
Internal Medicine - PN: Subj *Date: 10/15/20 *Time: 10:41 Interval history: Patient denies any new respiratory complaints. Exam - Constitutional Constitutional:: Present: comfortable - HENMT Exam HENMT: Present: atraumatic - Respiratory Exam Respiratory:: Present: able to speak in complete sentences, respiratory distress, crackles - Cardiovascular Exam Cardiac:: Present: S1, S2 - GI Exam GI:: Present: soft - Skin Exam Skin: Present: warm, no rash - Neurological Exam Neurological: Present: alert, awake, normal cognition - Extremities Exam Extremities: Present: no cyanosis, no clubbing, no edema Assessment and Plan (1) Acute hypoxemic respiratory failure due to COVID-19 Status: Acute Category: Medical Code(s): U07.1 - COVID-19; J96.01 - Acute respiratory failure with hypoxia (2) Gastroenteritis Status: Acute Category: Medical Code(s): K52.9 - Noninfective gastroenteritis and colitis, unspecified (3) Pneumonia due to COVID-19 virus Status: Acute Category: Medical Code(s): U07.1 - COVID-19; J12.82 - Pneumonia due to coronavirus disease 2019 (4) Acute respiratory failure with hypoxemia Status: Acute Category: Medical Code(s): J96.01 - Acute respiratory failure with hypoxia - Assessment and plan all Dx Assessment and Plan for all problems:: #COVID-19 pneumonia: #Acute hypoxic respiratory failure: 75-year-old no prior respiratory complaint no significant smoking history present with abdominal complaints found to be COVID-19 positive. Patient needing increasing oxygen requirement and currently high flow nasal cannula. CTA from admission did not show any evidence of pulmonary however showed bilateral diffuse patchy and groundglass opacities. Repeat chest x-ray from 10/07, reviewed, showed worsening left-sided pulmonary infiltrates along with questionable right lower lobe collapse. Hospital course: Patient so far completed 10 days of remdesivir and dexamethasone. She also received tocilizumab. She also completed 10 days of cefepime and her most recent sputum cultures on 10/09/2020 were positive Streptococcus and she was started on Zosyn to complete a 7-day course for her. MRSA screen negative,. Her oxygen requirements are not improving and she remains on high flow nasal cannula and BiPAP intermittently. She is also following proning protocol. Inflammatory markers initially improved, however most recent inflammatory markers including CRP and ferritin not significant elevated from prior however LDH shown to be increased with a stable hemoglobin. It is unfortunate that patient is not showing any clinical improvement for the last week and continue to remain on high oxygen requirements. She has been treated for pneumonia and being diuresed with no significant clinical improvement. I am concerned that patient may be progressing to fibrotic phase of COVID-19 pneumonia. We will continue to monitor. Chest x-ray showed improvement predominantly in the upper lobes after diuresis from yesterday. Renal function stable. Hypokalemic at 3.3. Plan: - Recommend PT/OT - F/U repeat sputum cultures -Replete potassium with 40 oral -Continue Zosyn for total of 7 days from 10/09/20 -Advair diskus twice daily scheduled. -Continue noninvasive ventilation and BiPAP pressure of 16/8 when patient is not proned. We will continue high flow nasal cannula for the rest of the duration. -Continue awake proning protocol for atleast 12 hrs -Chest percussion therapy q8-12 hrs -Incentive spirometry -Continue chemical DVT prophylaxis. #Thank you for involving pulmonary in this patient care. We'll continue to follow.
--- NOTE | 2020-10-15 16:40 | PC.NURSE ---
Pt has been pleasant and cooperative this shift. A&O X4. No complaints of pain. Pt is currently wearing the BiPap with sats. >86%. Pt wears the vapotherm & non-rebreather when eating meals and sats. about 74-80%. Pt de-sats. and takes about an hour to fully recover with any sort of activity. Lung sounds reveal crackles. No edema noted. Skin is C/D/I. Pt ambulates with stand-by assistance. Urine is clear and yellow. 1 large, soft, brown stool this shift. Appetite is fair and pt eats about 25-50% of all meals. Pt has been encouraged to turn/reposition Q2H and cooperates fully. 20 G peripheral IV in the LT hand is patent and SL. 20 G peripheral IV in the RT AC is patent and SL. VSS. Call light within reach. Will continue to monitor.
[2020-10-16] VITALS (14 sets, daily range): BP systolic 109–168; BP diastolic 58–88; PULSE 69–118; RESP 16–46; TEMP 36.8–37.1; O2SAT 67–87; BMI 27.6
--- NOTE | 2020-10-16 00:20 | PC.NURSE ---
PT 81% ON 100% BIPAP AT THIS TIME. RR 60/MIN. PT STILL ABLE TO ANSWER ALL QUESTIONS. UPDATED MD WEBER, WILL PUT IN ORDER FOR STAT ABG AT THIS TIME. CONTINUING TO MONITOR.
[2020-10-16 00:46] LABS: ABG Base Excess 7.1 mmol/L (-2.4-2.3); ABG HCO3 30.5 mmhg (22.0-26.0); ABG Oxygen Saturation 82 % (90-100); ABG PCO2 40.8 mmhg (35.0-45.0); ABG PH 7.49 mmol/L (7.35-7.45); ABG TCO2 31.7 mmhg (23-27)
[2020-10-16 00:51] LABS: ABG PO2 38.9 mmhg (80-100)
--- NOTE | 2020-10-16 00:53 | PC.NURSE ---
Addendum entered by Iveth Moya RN 10/16/20 00:59: HAVE CONTACTED [facility] TO REPORT CRITICAL ABG. AWAITING CALL BACK AT THIS TIME. Original Note: CRITICAL ABG REPORTED TO MD WEBER.
--- NOTE | 2020-10-16 01:35 | PC.NURSE ---
PRN BREATHING TX ADMINISTERED PER RESPIRATORY. PT RR HAS DECREASED TO 51/MIN. O2 SAT NOW 87%. WILL CONTINUE TO MONITOR.
--- NOTE | 2020-10-16 03:45 | PC.NURSE ---
PT HAS HAD NO SIGNIFICANT CHANGES THIS SHIFT. PT REMAINS ON BIPAP, SAT >85% T/O SHIFT. IF PATIENT HAS BIPAP REMOVED OR MOVES IN BED, SHE DE-SATS VERY QUICKLY. TAKES HER A WHILE TO COME BACK. PT HAS SLEPT MAJORITY OF SHIFT. IS A&OX4. PT HAS HAD NO C/O THUS FAR. IS VERY SOA, WITH SHALLOW BREATHS. HAS HAD NO C/O COUGH/PAIN. RESTING COMFORTABLY IN BED. VSS WILL CONTINUE TO MONITOR.
[2020-10-16 06:34] LABS: Chloride 96 mmol/L (98-107); Sodium 140 mmol/L (136-145)
[2020-10-16 06:35] LABS: Potassium 3.3 mmoL/L (3.5-5.1)
[2020-10-16 06:37] LABS: Blood Urea Nitrogen 38 mg/dl (7-17); Creatinine Clearance Estimated 59 mL/min (50-200); Estimated Glomerular Filt Rate 82 ml/min (>60); GFR (African American) 99 ML/MIN (>60)
[2020-10-16 06:38] LABS: Anion Gap 11.3 mEq/L (5-15); Calcium 8.3 mg/dl (8.4-10.2); Carbon Dioxide 36 mmol/L (22.0-30.0); Glucose 120 mg/dl (74-100)
[2020-10-16 08:45] LABS: Basophils % 0.2 % (0.1-2.0); Eosinophils # 0.4 K/mm3 (0.0-0.4); Eosinophils % 2.1 % (0.1-12.0); Hematocrit 42.8 % (37.0-47.0); Hemoglobin 14.6 g/dL (12.2-16.2); Lymphocytes # 0.6 K/mm3 (0.7-4.5); Lymphocytes % 3.4 % (10-50); Mean Corpuscular HGB Conc 34.2 g/dL (31.8-35.4); Mean Corpuscular Hemoglobin 29.7 pg (27.0-31.2); Mean Corpuscular Volume 86.8 fl (81-99); Mean Platelet Volume 8.8 fl (7.4-10.4); Monocytes # 0.8 K/mm3 (0.1-1.0); Monocytes % 4.6 % (1.7-9.3); Neutrophils # 15.1 K/mm3 (1.8-7.8); Neutrophils % 89.6 % (37.0-80.0); Platelet Count 249 K/mm3 (142-424); Red Blood Count 4.93 M/mm3 (4.20-5.40); Red Cell Distribution Width 14.4 % (11.5-17.5); White Blood Count 16.8 K/mm3 (4.8-10.8)
[2020-10-16 08:47] LABS: MANUAL DIFFERENTIAL MANUAL DIFFERENTIAL (MANUAL DIFF)
--- NOTE | 2020-10-16 09:08 | XR_ITS ---
PROCEDURE: XR CHEST PORTABLE CLINICAL HISTORY: pnm Covid19 pneumonia COMPARISON: CT CT ANGIO CHEST PE PROTOCOL from 09/30/2020 CR XR CHEST PORTABLE from 10/12/2020 CR XR CHEST PORTABLE from 10/14/2020 CR XR CHEST PORTABLE from 10/15/2020 FINDINGS: There remains diffuse bilateral alveolar opacification which appears slightly worse in the lung apices. No evidence of pneumothorax. No acute bony findings. Normal heart size. IMPRESSION: Diffuse bilateral airspace disease consistent with diffuse pneumonia, ARDS, or pulmonary edema slightly worse in the lung apices. No evidence of pneumothorax Dictated by: Boone Casarez MD 10/16/2020 11:30 Boone Casarez MD in [facility] 10/16/2020 11:30
[2020-10-16 09:11] LABS: Eosinophils % 4 % (0-3); Lymphocytes % 1 % (10-50); Monocytes % 3 % (2-9); Neutrophils % 92 % (42-76); Total Cells Counted 100
[2020-10-16 09:12] LABS: Platelet Estimate Normal
--- NOTE | 2020-10-16 11:00 | HMH.PULMPN ---
Internal Medicine - PN: Subj *Date: 10/16/20 *Time: 11:00 Interval history: Patient respiratory status continued to decline. Complains of worsening respiratory distress Exam - Constitutional Constitutional:: Present: comfortable - HENMT Exam HENMT: Present: normocephalic, atraumatic - Eye Exam Eyes:: Present: normal appearance both eyes and related structures - Neck Exam Neck:: Present: normal visual inspection - Respiratory Exam Respiratory:: Present: respiratory distress, decreased breath sounds, crackles. Absent: able to speak in complete sentences - Cardiovascular Exam Cardiac:: Present: S1, S2 - GI Exam GI:: Present: soft - Skin Exam Skin: Present: warm, no rash - Neurological Exam Neurological: Present: alert, awake, normal cognition - Extremities Exam Extremities: Present: no cyanosis, no clubbing, no edema Assessment and Plan (1) Acute hypoxemic respiratory failure due to COVID-19 Status: Acute Category: Medical Code(s): U07.1 - COVID-19; J96.01 - Acute respiratory failure with hypoxia (2) Gastroenteritis Status: Acute Category: Medical Code(s): K52.9 - Noninfective gastroenteritis and colitis, unspecified (3) Pneumonia due to COVID-19 virus Status: Acute Category: Medical Code(s): U07.1 - COVID-19; J12.82 - Pneumonia due to coronavirus disease 2019 (4) Acute respiratory failure with hypoxemia Status: Acute Category: Medical Code(s): J96.01 - Acute respiratory failure with hypoxia - Assessment and plan all Dx Assessment and Plan for all problems:: #COVID-19 pneumonia: #Acute hypoxic respiratory failure: 75-year-old no prior respiratory complaint no significant smoking history present with abdominal complaints found to be COVID-19 positive. Patient needing increasing oxygen requirement and currently high flow nasal cannula. CTA from admission did not show any evidence of pulmonary embolism however showed bilateral diffuse patchy and groundglass opacities. Patient so far has completed 10 days of remdesivir and dexamethasone. She also received tocilizumab. She also completed 10 days of cefepime and her most recent sputum cultures on 10/09/2020 were positive Streptococcus and she was started on Zosyn to complete a 7-day course for her. MRSA screen negative,. Patient also has been adequately diuresed. Clinical status of her has been gradually declining despite our continued efforts. I have extensively discussed with the patient today regarding her worsening clinical condition and further options including continuation of alternating BiPAP and high flow nasal cannula, proceeding with intubation and mechanical ventilation and hospice care. patient expresses complete understanding of the current clinical scenario and he wishes to go for comfort care with no escalation of care and he she would like to meet with her family. X-ray from this morning showed worsening infiltrates. Patient oxygen saturations declined now she has been saturating at 85 to 86% on BiPAP support. Plan: -F/URepeat Sputum cultures -Initiate Bactrim DS along with prednisone twice daily -Recommend hospice consult -Recommend PT/OT -Continue Zosyn for total of 7 days from 10/09/20 -Advair diskus twice daily scheduled. -Continue noninvasive ventilation and BiPAP pressure of 16/8 when patient is not proned. We will continue high flow nasal cannula for the rest of the duration. -Continue awake proning protocol for atleast 12 hrs -Chest percussion therapy q8-12 hrs -Incentive spirometry -Continue chemical DVT prophylaxis. #Thank you for involving pulmonary in this patient care. We'll continue to follow.
--- NOTE | 2020-10-16 12:57 | SW/DCPLANNER ---
Addendum entered by Rylie Segal 10/16/20 15:14: This patient will be admitted to [facility]patient (per Administration). I have spoke with Kathrine from Hospice whom stated that patient will change to inpatient Hospice as of today 10/16/20 at 3:30PM. Original Note: Per Indira Alvarenga with Dr Saba office she has spoke with family regarding Hospice services. Patient is interested in services at this time. Patient information has been faxed to [facility]. I will speak with Pallavi/Miguel Ángel lenz/ Hospice regarding this referral.
--- NOTE | 2020-10-16 12:58 | HMH.ACPN2 ---
Internal Medicine - PN: Subj *Date: 10/16/20 *Time: 09:00 Interval history: pt laying in bed with bipap in place Exam Vital signs and Labs for Last 24 Hours: Temp Pulse Resp BP Pulse Ox 98.4 F 84 32 H 132/75 87 L 10/16/20 11:43 10/16/20 11:43 10/16/20 11:43 10/16/20 11:43 10/16/20 11:43 Laboratory Results - last 24 hr 10/16/20 00:18: ABG pH 7.49 H, ABG pCO2 40.8, ABG pO2 38.9 L, ABG HCO3 30.5 H, ABG Total CO2 31.7 H, ABG O2 Saturation 82 L*, ABG Base Excess 7.1 H 10/16/20 05:20: WBC 16.8 H, RBC 4.93, Hgb 14.6, Hct 42.8, MCV 86.8, MCH 29.7, MCHC 34.2, RDW 14.4, Plt Count 249, MPV 8.8, Neut % (Auto) 89.6 H, Lymph % (Auto) 3.4 L, [place] % (Auto) 4.6, Eos % (Auto) 2.1, Baso % (Auto) 0.2, Neut # (Auto) 15.1 H, Lymph # (Auto) 0.6 L, [place] # (Auto) 0.8, Eos # (Auto) 0.4, Baso # (Auto) 0.0, Total Counted 100, Neutrophils % (Manual) 92 H, Lymphocytes % (Manual) 1 L, Monocytes % (Manual) 3, Eosinophils % (Manual) 4 H, Platelet Estimate Normal 10/16/20 05:20: Sodium 140, Potassium 3.3 L, Chloride 96 L, Carbon Dioxide 36 H, Anion Gap 11.3, BUN 38 H, Creatinine 0.70, Estimated Creat Clear 59, Estimated GFR 82, Est GFR ( Amer) 99, Glucose 120 H, Calcium 8.3 L I & O for Last 24 hours: Intake & Output 10/14/20 10/15/20 10/16/20 10/17/20 11:59 11:59 11:59 11:59 Intake Total 660 / 660 480 / 480 1360 / 1360 Output Total 125 / 125 400 / 400 1999 Balance 535 / 535 80 / 80 -640 / -640 Weight 166 lb 8 oz 166 lb 1.011 oz 166 lb - Constitutional moderate distress - *Routine HEENT Exam Head: Present: normocephalic Eye: Present: PERRL ENT: Present: mucous membranes moist - *Routine Neck Exam Present: supple. Absent: lymphadenopathy - *Routine Respiratory Exam Present: decreased breath sounds, rhonchi, diminished air movement - *Routine Cardiovascular Exam Present: RRR - *Routine Abdominal Exam Present: soft, normoactive bowel sounds. Absent: tenderness - *Routine Extremities Exam Absent: cyanosis, clubbing, edema - *Routine Skin Exam Present: warm. Absent: rash - *Routine Neurological Exam Present: alert, oriented X3 - Routine Psychiatric Exam Present: normal affect Assessment and Plan (1) Acute hypoxemic respiratory failure due to COVID-19 Status: Acute Category: Medical Code(s): U07.1 - COVID-19; J96.01 - Acute respiratory failure with hypoxia (2) Gastroenteritis Status: Acute Category: Medical Code(s): K52.9 - Noninfective gastroenteritis and colitis, unspecified (3) Pneumonia due to COVID-19 virus Status: Acute Category: Medical Code(s): U07.1 - COVID-19; J12.82 - Pneumonia due to coronavirus disease 2019 (4) Acute respiratory failure with hypoxemia Status: Acute Category: Medical Code(s): J96.01 - Acute respiratory failure with hypoxia - Assessment and plan all Dx Assessment and Plan for all problems:: rounded with dr santiago all orders per dr santiago pt has chosen to be comfort care only and asked to speak with hospice I spoke with son jamil,daughter rhoda and daughter in law lianne to inform them of pt request.
--- NOTE | 2020-10-16 16:40 | PC.NURSE ---
Pt has been pleasant and cooperative this shift. A&O X4. No complaints of pain. Pt is currently wearing the BiPap with sats. >80%. Pt has refused to take off the BiPap this shift for medications/meals/etc. Pt de-sats. to low-70's with any and all activity. Lung sounds are diminished with scattered crackles. No edema noted. Skin is C/D/I. Pt has not been OOB this shift. Pt has been encouraged to turn/reposition Q2H and cooperates fully. Urine is clear and yellow with a PurWick in place. No BM today. Appetite is poor and pt has refused every meal thus far today. Pt is now a DNR status and comfort measures have been initiated. Family at bedside. 20 G peripheral IV in the LT hand is patent and SL. 20 G peripheral IV in the RT AC is patent and SL. VSS. Call light within reach. Will continue to monitor.
[2020-10-17 03:32] VITALS: RESP 16; RESP 32
--- NOTE | 2020-10-17 04:52 | PC.NURSE ---
PT SLEPT ENTIRETY OF SHIFT. PT VS WERE STABLE MAJORITY OF SHIFT. O2 SAT CLIMBED TO 82% ON BIPAP @ 0400. AT APPX 0425, PT RESPIRATIONS BECAME SLOWER AND MORE SHALLOW. AT THIS TIME. THIS NURSE NOTIFIED HOUSE, AND FAMILY TO COME TO BEDSIDE. AT 0430, PT WAS FOUND TO BE APNIC, NO PULSE PALPATED OR AUSCULTATED, NO BREATH SOUNDS AUSCULTATED. NO RESPONSE. CONFIRMED WITH [employer] FLARING MACHINE OPERATOR NATALI CONTE. FAMILY NOW AT BEDSIDE IN FULL PPE. BIPAP REMOVED FROM PT.
--- NOTE | 2020-10-17 04:58 | PC.NURSE ---
JENNA notified at 0448. . JENNA Coordinator - Danay Will. Pt ruled out for organ donation d/t COVID-19.
--- NOTE | 2020-10-17 05:01 | PC.NURSE ---
0430 - Dr Saba at bedside to pronounce patient.
--- NOTE | 2020-10-17 05:16 | PC.NURSE ---
Family chose [facility]
--- NOTE | 2020-10-17 05:24 | HMH.DEATH ---
Pronouncement Note - Date and Time of Date of : 10/17/20 Time of : 04:30 - PCOD Preliminary cause of : Acute respiratory failure - Additional Data Confirmation of : no pulse, no respirations, pupils fixed and dilated Family: at bedside Attending/PCP notified?: Yes Attending physician: Valdez Saba MD Was code activated?: No Autopsy requested?: No corporate claims examiner notified?: Yes Organ bank notified?: Yes Advance directives: Yes
--- NOTE | 2020-10-17 05:26 | HMH.DCSUM ---
General - General Admission date:: 09/30/20 Discharge date: 10/17/20 HPI HPI: this patient presented to the [facility] ed- 75-year-old female presenting with some nausea vomiting diarrhea and shortness of breath for the last few days. Patient was recently tested for coronavirus and was found to be positive. Since then she has been having some mild cough and difficulty breathing. She feels very short of breath. She is also had some nausea, vomiting and diarrhea. Clear nature. Had some associated abdominal cramping. Patient is not having chest pain or palpitations. Has endorsing fevers and chills. Denies any headache or change in vision. No focal weakness. pt was admitted for eval and is requiring o2 at this time Hospital Course Hospital Course: pt was admitted with covid-19 infection -pt was seen by pul med-ssessment and Plan (1) Acute hypoxemic respiratory failure due to COVID-19 Status: Acute Category: Medical Code(s): U07.1 - COVID-19; J96.01 - Acute respiratory failure with hypoxia (2) Gastroenteritis Status: Acute Category: Medical Code(s): K52.9 - Noninfective gastroenteritis and colitis, unspecified (3) Pneumonia due to COVID-19 virus Status: Acute Category: Medical Code(s): U07.1 - COVID-19; J12.82 - Pneumonia due to coronavirus disease 2019 - Assessment and plan all Dx Assessment and Plan for all problems:: #COVID-19 pneumonia: #Acute hypoxic respiratory failure: 75-year-old no prior respiratory complaint no significant smoking history present with abdominal complaints found to be COVID-19 positive. Patient needing increasing oxygen requirement and currently high flow nasal cannula. CTA from admission reviewed, did not show any evidence of pulmonary however showed bilateral diffuse patchy and groundglass opacities. Lymphopenia noted. Plan: - Initiate Awake proning protocol - Start remdesivir along with dexamethasone - Start ceftriaxone and Azithromycin community-acquired pneumonia - Continue oxygen supplementation currently on high flow nasal cannula, wean her oxygen supplementation to 45%, currently on 35 L 45% FiO2 saturating 85%. We'll closely monitor. -Albuterol inhaler every 6 hours as needed -Continue chemical DVT prophylaxis. Follow with D-dimer CRP and LDH pt with difficult time with persistent sx and needed o2 assistance --year-old no prior respiratory complaint no significant smoking history present with abdominal complaints found to be COVID-19 positive. Patient needing increasing oxygen requirement and currently high flow nasal cannula. CTA from admission reviewed, did not show any evidence of pulmonary however showed bilateral diffuse patchy and groundglass opacities. Lymphopenia noted. Interval update: Patient FiO2 requirements increased, this morning on 80% FiO2 saturating 94%. Patient personally denies any respiratory distress. Auscultation relatively stable from yesterday. Inflammatory markers including CRP LDH and D-dimer elevated 26.5, 370 & 0.6. Blood cultures on 1 bottle from admission growing gram-negative rods. Patient expressed her wishes to attend her son's today however after extensive discussions she understands her current clinical scenario and agreed to stay in the hospital and undergo current medical management Plan: -Awake proning protocol -COntinue remdesivir along with dexamethasone -Continue azithromycin, change ceftriaxone to cefepime given positive blood cultures - Continue oxygen supplementation currently on high flow nasal cannula, -Albuterol inhaler every 6 hours as needed -Continue chemical DVT prophylaxis. pt with ongoing decline --year-old no prior respiratory complaint no significant smoking history present with abdominal complaints found to be COVID-19 positive. Patient needing increasing oxygen requirement and currently high flow nasal cannula. CTA from admission reviewed, did not show any evidence of pulmonary however showed bilateral diffuse
--- NOTE | 2020-10-17 06:22 | PC.NURSE ---
POST MORTEM CARE PROVIDED AT THIS TIME. PATIENTS FAMILY HAS TAKEN HER BELONGINGS. WILL CONTACT [facility] AT THIS TIME.
== END 2020-10-17 06:29 | disposition expired | DRG 177 ==
LOC: ER 18:36 → 2ND 20:37 → ICU 10-10 18:10 → 2ND 10-10 18:44 → ICU 10-10 18:45
PROVIDERS: Family Medicine; Internal Medicine Pulmonary Disease; Nurse Practitioner Family; Admitting Provider Emergency Medicine; Emergency Provider Emergency Medicine; PCP Emergency Medicine; Visit Provider Emergency Medicine
DX: U07.1 COVID-19 (principal); J12.82 Pneumonia due to coronavirus disease 2019; J80 Acute respiratory distress syndrome; J15.4 Pneumonia due to other streptococci; A41.50 Gram-negative sepsis, unspecified; I25.10 Atherosclerotic heart disease of native coronary artery without angina pectoris; K21.9 Gastro-esophageal reflux disease without esophagitis; E78.5 Hyperlipidemia, unspecified; I10 Essential (primary) hypertension; I25.2 Old myocardial infarction; E87.6 Hypokalemia; E03.9 Hypothyroidism, unspecified
CPT/HCPCS: 36415; 71045; 71275; 80048; 80053; 80076; 81001; 82728; 82803; 83605; 83615; 85007; 85025; 85378; 86140; 87040; 87070; 87077; 87081; 87186; 87205; 87486; 87581; 87633; 87798; 93005; 94640; 94660; 94668; 94760; 94761; 96365; 96366; 99284; J2405; J2543; J3262; J3370; Q9967; U0003